=== PATIENT | female | born 1960 | race African-American/Black ===

== ENCOUNTER 2024-02-26 17:09 | Emergency (ER) | payer OTHER, SELFPAY ==
[2024-02-26 17:15] VITALS: BP 195/119; PULSE 109; RESP 32; TEMP 37.2; O2SAT 97; BMI 25.0
--- NOTE | 2024-02-26 17:20 | CRLHL7_ITS ---
For Patients: As a result of the Cures Act, medical imaging exams and procedure reports are released immediately into your electronic medical record. You may view this report before your referring provider. If you have questions, please contact your health care provider. INDICATION: Shortness of breath. TECHNIQUE: Chest 2 views. COMPARISON: None available. FINDINGS: No pneumothorax or pleural effusion. Postoperative changes with suture line in the right upper lobe. Multiple surgical clips in the lower right paratracheal region. Lungs are otherwise clear. Cardiac and mediastinal contours are within normal limits. Upper abdomen and osseous structures as imaged show no acute abnormality. IMPRESSION: No evidence of acute cardiopulmonary disease. Dictated by Jun Davidson MD @ 02/26/2024 6:39:27 PM (Electronically Signed)
[2024-02-26] MEDS: predniSONE 20 MG TABLET 60 MG PO (17:37)
[2024-02-26] MEDS: IPRAT-ALBUT 0.5-2.5 MG/3 ML NEB 1 NEB IH (17:41)
[2024-02-26] MEDS: ALPRAZolam 0.25 MG TABLET PO (17:42)
[2024-02-26 17:48] VITALS: PULSE 88; O2SAT 100
--- OUTSIDE RECORDS SUMMARY | 2024-02-26 17:54 | XMS_ITS | Encounter Summary ---
Author Organization [employer] Address [address], [place] [address] Care Team Providers Care Busser Name Role Phone Mariluamor Gopal Gimenez DO Primary Care Provider [phone]- [phone] Reason for Visit * Reason Comments Insurance Concerns Financial Encounter Details Date Type Department Care Team (Late st Contact Info) Description 01/19/2024 Telephone [facility] [address] [facility]. [place], [place] [id number] Mervat Salmeron, FUR BLOWING MACHINE ATTENDANT, MECHANICAL DESIGNER [address] [place], [place] [id number] Insurance Concerns; Financial Social History Tobacco Use Types Packs/Day Years Used Date Smoking Tobacco: Former Cigarettes Q uit: 10/04/2021 Smokeless Tobacco: Never Alcohol Use Standard Drinks/Week Comments Not Currently 0 (1 standard drink = 0.6 oz pur e alcohol) Humiliation, Afraid, Rape, and Kick questionnair e Answer Date Recorded Fear of Current or Ex-Partner Not on file Emotionally Abused Not on file 08/12/2023 Within the last year, have y ou been kicked, hit, slapped, or otherwise physically hurt by your partner or ex-partner? No 08/12/2023 Within the last year, have y ou been raped or forced to have any kind of sexual activity by your partner or ex-partner? No 08/12/2023 Hunger Vital Sign Answer Date Recorded Within the past 12 months, y ou worried that your food would run out before you got the money to buy more. Never true 07/10/20 23 Within the past 12 months, t he food you bought just didn't last and you didn't have money to get more. Never true 07/10/2023 Sex and Gender Information Value Date Recorded Sex Assigned at Not on file Gender Identity Not on file Sexual Orientation Not on file documented as of this encounter Nursing Notes * Mervat Salmeron MSW, LICSW - 01/19/2024 3:38 PM CDT Social Work - Phone Call Contact with: pt Reason for call: follow up Discussion/actions: Pt reported she has insurance now but wonders if it will backdate, stating its through her 's employer. Reviewed financial assistance options with pt, pt agreed to meet with tech writer after appt on Wednesday with Dr. Yoder. YUN Mckeon LICSW documented in this encounter Plan of Treatment Not on file documented as of this encounter Visit Diagnoses Not on filedocumented in this encounter Care Teams Busser Relationship Specialty Start Date End Date Gopal Varghese DO [address] [place] [address] PCP - General Family Practice 05/29/19 documented as of this encounter
--- OUTSIDE RECORDS SUMMARY | 2024-02-26 17:54 | XMS_ITS | Encounter Summary ---
Author Organization [employer] Address [address] [place] [address] Care Team Providers Care Classifier Name Role Phone Gopal Varghese DO Primary Care Provider [phone] [phone] Encounter Details Date Type Department Care Team (Late st Contact Info) Description 07/06/2019 Correspondence None No Primary/Referring, Phy NEW PATIENT HISTORY Social History Tobacco Use Types Packs/Day Years Used Date Smoking Tobacco: Every Day Cigarettes Smokeless Tobacco: Never Alcohol Use Standard Drinks/Week Comments No 0 (1 standard drink = 0.6 oz pur e alcohol) Sex and Gender Information Value Date Recorded Sex Assigned at Not on file Gender Identity Not on file Sexual Orientation Not on file documented as of this encounter Plan of Treatment Not on file documented as of this encounter Visit Diagnoses Not on filedocumented in this encounter Additional Health Concerns Infection Onset Date Last Indicated Resolved Time R/O COVID19 07/09/2023 07/09/2023 07/09/2023 4:52 PM ORACLE IDENTITY MANAGEMENT CONSULTANT documented as of this encounter Care Teams Classifier Relationship Specialty Start Date End Date Gopal Varghese DO [address] [place] [address] PCP - General Family Practice 05/29/19 documented as of this encounter
--- OUTSIDE RECORDS SUMMARY | 2024-02-26 17:54 | XMS_ITS | Encounter Summary ---
Author Organization [employer] Address [address] [place] [address] Care Team Providers Care Agile Coach Name Role Phone Gopal Varghese DO Primary Care Provider [phone] [phone] Encounter Details Date Type Department Care Team (Late st Contact Info) Description 08/01/2019 Consent for Procedure/Treatme nt [facility] INFORMED CONSENT RECORD Social History Tobacco Use Types Packs/Day Years [...] R/O COVID19 07/09/2023 07/09/2023 07/09/2023 4:52 PM IN STORE MARKETER documented as of this encounter Care Teams Agile Coach Relationship Specialty Start Date End Date Gopal Varghese DO [address] [place] [address] PCP - General Family Practice 05/29/19 documented as of this encounter
--- OUTSIDE RECORDS SUMMARY | 2024-02-26 17:54 | XMS_ITS | Encounter Summary ---
Author Organization [employer] Address [address], [place] [address] Care Team Providers Care Residential Pest Control Technician Name Role Phone Gopal Varghese Primary Care Provider +1- [phone] Reason for Visit * Reason Comments Refill atorvastatin (LIPITO R) 40 MG tablet [Pharmacy Med Name: ATORVASTATIN 40MG TABLETS] Encounter Details Date Type Department Care Team (Late st Contact Info) Description 12/21/2023 Refill [facility] [address] [place] [address] Severiano Moreno, ALLERGIST IMMUNOLOGIST, ENGINEER EXHAUSTER [address] [place] [address] Refill (atorvastatin (LIPITOR) 40 MG tablet [Pharmacy Med Name: ATORVASTATIN 40MG TABLETS]) Social History Tobacco Use Types Packs/Day Years [...] as of this encounter Nursing Notes * Doretha Ham, RN - 12/23/2023 6:15 AM CDT Patient had an appointment with Gopla Varghese DO (Physician) Family Practice Encounter Date: 07/16/2023 Refilled per standing order. * Latoya Aguilar X[employer] - 12/21/2023 5:20 AM CDT atorvastatin (LIPITOR) 40 MG tablet [Pharmacy Med Name: ATORVASTATIN 40MG TABLETS] Miscellaneous - 12 Month Visit 1 -> The most recent order on 11/13/2023. -> An office visit is overdue (performed over 13 months ago, required every 12 months). Last qualifying visit: 11/13/2022 (with SEVERIANO MORENO) (A more recent visit (in Internal Medicine with RONI ROGEL) was found) Next scheduled visit: None Last ordered by SEVERIANO MORENO: 11/13/2022 (403 days ago) QTY: 90, Refills: 3, Sig: take 1 tablet (40 mg) by mouth daily. (changed but equivalent) [facility] [employer] Embedded Refills, Reference: [id number], 12/21/2023 5:20:34 AM CDT, [facility] - Primary Care ([id number]) documented in this encounter Plan of Treatment Not on file documented as of this encounter Visit Diagnoses Diagnosis Diabetes mellitus, type II (HRC) Type II or unspecified type diabetes mellitus without mention of complication, not stated as uncontrolled Hypertension, unspecified type (HRC) documented in this encounter Care Teams Residential Pest Control Technician Relationship Specialty Start Date End Date Gopal Varghese DO [address] [place] [address] PCP - General Family Practice 05/29/19 documented as of this encounter
--- OUTSIDE RECORDS SUMMARY | 2024-02-26 17:54 | XMS_ITS | Encounter Summary ---
Author Organization [employer] Address [address], [place] [address] Care Team Providers Care Insurance Licensing Supervisor Name Role Phone Gopal Varghese Primary Care Provider [phone]- [phone] Reason for Visit * Reason Comments Refill gabapentin (NEURONTI N) 300 MG capsule [Pharmacy Med Name: GABAPENTIN 300MG CAPSULES] Encounter Details Date Type Department Care Team (Late st Contact Info) Description 11/23/2023 Refill [facility] [address] [facility] [place] [address] Severiano Moreno, PUBLICATION EDITOR, BEHAVIORAL HEALTH TECH [address] [place] [address] Refill (gabapentin (NEURONTIN) 300 MG capsule [Pharmacy Med Name: GABAPENTIN 300MG CAPSULES]) Social History Tobacco Use Types Packs/Day Years [...] as of this encounter Nursing Notes * Gopal Varghese DO - 11/24/2023 7:55 AM CDT Medication refilled Gopal Varghese DO * Latoya Aguilar [employer] - 11/23/2023 5:19 PM CDT gabapentin (NEURONTIN) 300 MG capsule [Pharmacy Med Name: GABAPENTIN 300MG CAPSULES] None Exists -> Medication cannot be delegated. Last qualifying visit: 11/13/2022 (with SEVERIANO MORENO) (A more recent visit (in Internal Medicine with RONI ROGEL) was found) Next scheduled visit: None Last ordered by SEVERIANO MORENO: 11/13/2022 (375 days ago) QTY: 270, Refills: 3, Sig: take 1 capsule (300 mg) by mouth three times a day. (changed but equivalent) [facility] Embedded Refills, Reference: [id number], 11/23/2023 5:19:40 PM CDT, Pool: Refill Centralized Services - Primary Care ([id number]) documented in this encounter Plan of Treatment Not on file documented as of this encounter Visit Diagnoses Diagnosis Menopausal syndrome (hot flashes) Symptomatic menopausal or female climacteric states documented in this encounter Care Teams Insurance Licensing Supervisor Relationship Specialty Start Date End Date Gopal Varghese DO [address] [place] [address] PCP - General Family Practice 05/29/19 documented as of this encounter
--- OUTSIDE RECORDS SUMMARY | 2024-02-26 17:54 | XMS_ITS | Encounter Summary ---
Author Organization [employer] Address [address], [place] [address] Care Team Providers Care Implementation Architect Name Role Phone Gopal Varghese Primary Care Provider [phone]- [phone] Reason for Visit * Reason Comments Refill metFORMIN XR (GLUCOP URSULA XR) 500 MG 24 hour release tablet [Pharmacy Med Name: METFORMIN ER 500MG 24HR TABS] Encounter Details Date Type Department Care Team (Late st Contact Info) Description 12/21/2023 Refill [facility] [address] [facility]. [place], [place] [phone] Severiano Moreno, WATER PLANT MAINTENANCE MECHANIC, BONE COOKING OPERATOR [address] [place] [address] Refill (metFORMIN XR (GLUCOPHAGE XR) 500 MG 24 hour release tablet [Pharmacy Med Name: METFORMIN ER 500MG 24HR TABS]) Social History Tobacco Use Types Packs/Day Years [...] Nursing Notes * Gopal Varghese DO - 12/24/2023 7:36 AM CDT Medication refilled Gopal Varghese DO * Rosanna Carmona RN - 12/23/2023 7:53 AM CDT Further Assistance Needed on Refill from Clinician RN reviewed. Signed order needed. Patient no longer under previous prescribers care [facility] 07/16/23 Gopal Varghese DO Review pended order for accuracy and sign if appropriate Requested Prescriptions Pending Prescriptions Disp Refills lisinopril (ZESTRIL) 20 MG tablet [Pharmacy Med Name: LISINOPRIL 20MG TABLETS] 90 Tablet 2 Sig: TAKE 1 TABLET(20 MG) BY MOUTH DAILY * Latoya Aguilar [employer] - 12/21/2023 9:16 AM CDT lisinopril (ZESTRIL) 20 MG tablet [Pharmacy Med Name: LISINOPRIL 20MG TABLETS] Hypertension -> The most recent order on 11/13/2023. -> An office visit is overdue (performed over 13 months ago, required every 12 months). Last qualifying visit: 11/13/2022 (with SEVERIANO MORENO) (A more recent visit (in Internal Medicine with RONI ROGEL) was found) Next scheduled visit: None Last ordered by SEVERIANO MORENO: 11/13/2022 (403 days ago) QTY: 90, Refills: 2, Sig: take 1 tablet (20 mg) by mouth daily. (changed but equivalent) Cr: 0.64 mg/dL on 07/11/2023 K: 3.9 mEq/L on 07/11/2023 [facility] Embedded Refills, Reference: [id number], 12/21/2023 9:15:58 AM CDT, Pool: HP Refill Centralized Services - Primary Care ([id number]) documented in this encounter Plan of Treatment Not on file documented as of this encounter Visit Diagnoses Diagnosis Essential hypertension (HRC)- Primary Unspecified essential hypertension documented in this encounter Care Teams Implementation Architect Relationship Specialty Start Date End Date Gopal Varghese DO [address] [facility] [place] [address] PCP - General Family Practice 05/29/19 documented as of this encounter
--- OUTSIDE RECORDS SUMMARY | 2024-02-26 17:54 | XMS_ITS | Encounter Summary ---
Author Organization [employer] Address [address], [place] [address] Care Team Providers Care Community Sports Coordinator Name Role Phone Gopal Varghese DO Primary Care Provider [phone]- [phone] Reason for Visit * Reason Comments Forms Encounter Details Date Type Department Care Team ([facility] st Contact Info) Description 01/18/2024 Telephone [facility] [address] [facility]. [place], [place] [phone] Gopal Varghese DO [address] [place], [place] [phone] Forms Social History Tobacco Use Types Packs/Day Years [...] as of this encounter Nursing Notes * Kelly Pretty - 01/18/2024 12:16 PM CDT Faxed this morning and pt will berry picker Wednesday. Brought down to check in * Sal Mejia - 01/18/2024 11:30 AM CDT Forms & Letters - In Process Type of form: Letter/Other Form Patient is requesting the status of form(s) dropped off to clinic on last wk. Pt wants to know if it's ready to be picked up. Xcel form. Preferred communication method: Phone Call. Is it okay to leave a detailed message on your voicemail? Yes documented in this encounter Plan of Treatment Not on file documented as of this encounter Visit Diagnoses Not on filedocumented in this encounter Care Teams Community Sports Coordinator Relationship Specialty Start Date End Date Gopal Varghese DO [address] [place] [address] PCP - General Family Practice 05/29/19 documented as of this encounter
--- OUTSIDE RECORDS SUMMARY | 2024-02-26 17:54 | XMS_ITS | Encounter Summary ---
Author Organization [employer] Address [address] [address] Care Team Providers Care Occupational Health Nurse Name Role Phone Gopal Varghese DO Primary Care Provider +1- [phone] Reason for Referral * Consult/Transfer Care (Routine) - Incomplete Specialty Diagnoses / Procedures Referred By Yuridia lr Referred To Contact Diagnoses Acute exacerbation of chronic obstructive pulmonary disease (COPD) (HRC) Gopal Varghese DO [address] [place] [address] Referral ID Status Reason Start Date Expiration Date V isits Requested Visits Authorized [id number] Incomplete 01/11/2024 04/11/2025 1 1 Scheduling Instructions A care team leader/research psychologist will contact you within two weeks to follow up on your visit today. If you would like to speak with someone sooner, please contact your primary care clinic. Question Answer Appointment Urgency? Non-Urgent Reason for referral? Difficulty Managing Conditions, Treatments, or Medications, Medication Cost Barriers Reason for Visit * Reason Comments BREATHING PROBLEM Does not have insura nce at this time. ANXIETY 6 not. Patient is mo ving to a new place DEPRESSION 4 not Encounter Details Date Type Department Care Team ([facility] Contact Info) Description 01/11/2024 1:40 PM CDT Phone Visit [facility] [address] [place] [address] Gopal Varghese, [address] [place] [address] Acute exacerbation of chronic obstructive pulmonary disease (COPD) (HRC); Menopausal syndrome (hot flashes) Social History Tobacco Use Types Packs/Day Years [...] on file documented as of this encounter Last Filed Vital Signs Vital Sign Reading Time Taken Comments Blood Pressure - - Pulse - - Temperature - - Respiratory Rate - - Oxygen Saturation - - Inhaled Oxygen Concentration - - Weight 72.6 kg (160 lb) 01/11/2024 12:47 PM CDT Height - - Body Mass Index 27.46 08/19/2023 9:17 AM SAMPLE COORDINATOR documented in this encounter Patient Instructions * Patient Instructions* Gopal Varghese DO - 01/11/2024 1:40 PM CDT COPD exacerbation - Begin prednisone 40 mg (4 tablets) by mouth daily for 2 days, then 30 mg (3 tablets) daily for 2 days, then 20 mg (2 tablets) daily for 2 days, then 10 mg (1 tablet) daily for 2 days - begin azithromycin - referral placed to care coordination - if symptoms do not improve, worsen, or if new concerns arise please I would recommend in-person evaluation. Oncology contact information [phone] Pulmonology contact [phone] If any concerns arise please contact clinic at [phone] documented in this encounter Progress Notes * Gopal Varghese DO - 01/11/2024 1:40 PM CDT Subjective: Today's visit with Zahira was conducted as a scheduled telephone visit Zahira schedule today's appointment to discuss concerns of increased symptoms of shortness of breath. She was concerned about the possible development of a COPD exacerbation. Over the last 3 weeks she has had increased wheezing as well as slightly increased sputum production. No recorded fevers. No night sweats. Pulse oxygenation levels have not drop below 90%. She has had to take more breaks when walking at the mall. She does not feel like she needs to be seen in our evaluated in the ER setting at this time. Most recently she was hospitalized at [facility] from 10/13/2023 through 10/19/2023 for COPD exacerbation and tested positive for RSV at the time. She was intubated during this admission. She does not have insurance at this time but is interested in being seen in follow-up with pulmonology as well as Oncology. Controller inhaler medications have been challenging for her to purchased due to cost. She also would like a letter completed as she had gotten a letter from her [employer]chron[employer] service about possibly turning off the power. Objective: There were no vitals taken for this visit. General: Speaking in complete sentences. Assessment/Plan: Acute exacerbation of chronic obstructive pulmonary disease (COPD) (HRC): As she was noticed increased sputum production and wheezing will treat as a COPD exacerbation with prednisone as well as azithromycin. Reviewed potential side effects of these medications. Did recommend that she monitor bloodglucose levels closely. Did review concerning signs and symptoms when to contact clinic or seek in-person care. - ALBUterol sulfate HFA 108 (90 Base) MCG/ACT inhaler; Inhale 2 Puffs by mouth every 4 hours as needed for Wheezing. Maximum of 12 puffs in 24 hours. Indications: Chronic Obstructive Lung Disease - predniSONE (DELTASONE) 10 MG tablet; Take 40 mg (4 tablets) by mouth daily for 2 days, then 30 mg(3 tablets) daily for 2 days, then 20 mg (2 tablets) daily for 2 days, then 10 mg (1 tablet) daily for 2 days Indications: ACUTE EXACERBATION OF COPD (INACTIVE) - Coordination of Care (Clinic RN)-Adult/Peds - azithromycin (ZITHROMAX) 250 MG tablet; Take 2 Tablets (500 mg) by mouth daily for 1 day, THEN 1 Tablet (250 mg) daily for 4 days. Menopausal syndrome (hot flashes): Symptoms are currently managed with gabapentin. Informed her that I would sign off on the paperwork she was sent in. Gopal Varghese DO documented in this encounter Plan of Treatment Not on file documented as of this encounter Visit Diagnoses Diagnosis Acute exacerbation of chronic obstructive pulmonary disease (COPD) (HRC) Obstructive chronic bronchitis with exacerbation Menopausal syndrome (hot flashes) Symptomatic menopausal or female climacteric states documented in this encounter Care Teams Occupational Health Nurse Relationship Specialty Start Date End Date Gopal Varghese DO [address] [place] [address] PCP - General Family Practice 05/29/19 documented as of this encounter
--- OUTSIDE RECORDS SUMMARY | 2024-02-26 17:54 | XMS_ITS | Clinical Summary ---
Author Organization [facility] Address [place], [place] [address] Care Team Providers Care Shank Tapper Name Role Phone MariluGopal chinchilla Primary Care Provide r Ainsley Pereyra MD Unavailable Maritza Sykes RN, BSN, OCN Unavailable [phone] Rico Ortega MD Unavailable + [phone] Allergies Active Allergy Reactions Criticality Noted Date Comments Bismuth Subsalicylate Anaphylaxis High 01/01/2020 Unclear if it was due to this or ciprofloxacin Ciprofloxacin Anaphylaxis High 01/01/2020 Unclear if it was due to this or BISMUTH SUBSALICYLATE Naproxen GI Upset 06/11/2016 Medications Medication Sig Dispensed Refills Start Date End Date Status sertraline (ZOLOFT) 100 mg tabletIndications:a nxiety with depression Take 100 mg by mouth once daily. Active NebulizerIndication s:Bronchospasm Nebulizer, disposable neb kit x 4, reuseable neb kit x 1, mask x 1, filters x 1. Frequency of use: daily; Medication: duoneb Length of need: 1 months 1 Each 04/24/2021 Active atorvastatin (LIPITOR) 40 mg tabletIndications:h ypercholesterolemia Take 40 mg by mouth once daily. 08/10/2021 Active gabapentin (NEURONTIN) 300 mg capsuleIndications: neuropathic pain Take 300 mg by mouth three times daily. 07/25/2021 Active NebulizerIndication s:COPD exacerbation (HC) Nebulizer, disposable neb kit x 4, reuseable neb kit x 1, mask x 1, filters x 1. Frequency of use: daily; Medication: DuoNeb. Length of need: 33 months 1 Each 10/26/2021 Active oxygen-air delivery systems (HOME OXYGEN)Indications: COPD exacerbation (HC) Oxygen for home use. Liters per minute: 2 per nasal cannula. Frequency of use: Continuous with activity;. Length of need: 33 Months. 1 Each 10/26/2021 Active aspirin (ECOTRIN) 81 mg enteric coated tablet Take 81 mg by mouth once daily. Active sennosides-docusate (SENOKOT S) (8.6-50 mg) tabletIndications:D rug-induced constipation Take 1-3 Tablets by mouth 2 times daily if needed for Constipation. 30 Tablet 12/04/2021 Active lisinopriL (PRINIVIL; ZESTRIL) 20 mg tabletIndications:h ypertension Take 1 Tablet (20 mg) by mouth once daily. Hold for systolic blood pressure <110 0 12/04/2021 Active amLODIPine (NORVASC) 10 mg tabletIndications:h ypertension Take 1 Tablet (10 mg) by mouth once daily. 30 Tablet 12/04/2021 Active tiZANidine (ZANAFLEX) 2 mg tabletIndications:L eft hip pain Take 1 Tablet (2 mg) by mouth every 8 hours if needed for Muscle Spasm for up to 12 doses. 12 Tablet 04/17/2022 Active acetaminophen (TYLENOL EXTRA STRGTH) 500 mg tablet Take 1,000 mg by mouth every 6 hours if needed for Pain. Max acetaminophen dose: 4000mg in 24 hrs. Active metFORMIN (GLUCOPHAGE XR) 500 mg Extended-Release tabletIndications:t ype 2 diabetes mellitus Take 2,000 mg by mouth once daily. Active albuterol (PROVENTIL) 0.083 % neb solutionIndications :COPD exacerbation (HC) Inhale 3 mL (2.5 mg) via a nebulizer three times daily. 300 mL 05/12/2023 Active albuterol-ipratropi um (DUONEB) (2.5-0.5 mg) in 3 mL NEBULIZATION solutionIndications :COPD exacerbation (HC) Inhale 3 mL via a nebulizer 4 times daily if needed for Shortness of Breath 2nd choice. 360 mL 06/27/2023 Active nebulizer and compressor (DeVilbiss PulmoNeb LT Comp-Neb)Indication s:COPD with acute exacerbation (HC) For home use. Length of need: 999 days 1 Each 06/27/2023 Active fluticasone propion-salmeteroL (Advair Diskus) 100-50 mcg/dose diskus inhaler Inhale 1 Puff by mouth every 12 hours. Active albuterol HFA (PRO-AIR; VENTOLIN; PROVENTIL) 90 mcg/actuation inhalerIndications: COPD exacerbation (HC) Inhale 2 Puffs by mouth every 4 hours if needed for Shortness Of Breath (shortness of breath). 18 g 10/19/2023 Active predniSONE (DELTASONE) 20 mg tabletIndications:C OPD with acute exacerbation (HC) Take 1 Tablet (20 mg) by mouth once daily. 5 Tablet 10/19/2023 Active Active Problems Problem Noted Date Diagnosed Date WILLIAM (acute kidney injury) 10/17/2023 RSV (respiratory syncytial virus infection) 09/2023 Acute hypoxemic respiratory failure 10/13/2023 Acute on chronic respiratory failure with hypoxi a 01/29/2023 Dilated bile duct 09/11/2022 Overview: 2022 - noted on CT imaging MRCP recommended and order placed 09/2022 - MRCP with stable findings likely reservoir effect from cholecystectomy but could consider ERCP Microscopic hematuria 06/02/2022 Overview: Seen by Urology in 2019 - longstanding history Anxiety 06/01/2022 Stage I adenocarcinoma of lung, right 04/27/2022 ACP (advance care planning) 12/17/2021 Overview: Patient has identified Health Care Agent(s): Yes Add Health Care Agents: Patient has Advance Care Plan Documents (Health Care Directive, POLST): no Patient has identified Specific Treatment Preferences: Yes How have preferences been verified: verbal Specific Treatment Preferences: a.) Code Status: CPR/Attempt Resuscitation Closed fracture of right chalo t with routine healing: Right 5th digit crush injury with intra-articular fracture of the proximal phalanx 11/06/2021 Chest pain 11/06/2021 COPD exacerbation 08/31/2021 Chronic obstructive pulmonary disease 06/17/2021 Diabetes mellitus, type II 05/27/2021 Lung nodule 04/21/2021 Steroid-induced hyperglycemia 04/20/2021 Acute bronchitis with bronchospasm 04/16/2021 Sleep disorder 10/14/[address] scan, sigmoid colon 12/29/2019 Essential hypertension 12/29/2019 Pancreas cyst 10/04/2019 Overview: On ct ivp 2019 rec mri c contrast for fu in 2 ys 2021. 4x 7 mm pos ipmn Allergic rhinitis 10/03/2018 Restless legs syndrome 11/30/2016 Atherosclerosis of aorta 11/30/2016 Overview: On CT Lung nodule < 6cm on CT 11/30/2016 Diverticulosis of large intestine without hemorr slava 11/30/2016 Status post left total knee arthroplasty done 05/2811/19/2016 Asthma 11/19/2016 Depression with anxiety 03/23/2014 Hyperlipidemia 03/06/2014 Primary osteoarthritis of left knee 03/01/2014 Abdominal pain 10/29/2013 Migraine 03/07/2013 Former smoker 03/06/2013 Overview: 30 pack years 03/05/16 H/O: hysterectomy 07/28/2012 Irritable bowel syndrome 07/28/2012 GERD (gastroesophageal reflux disease) 1 Non-cardiac chest pain Resolved Problems Problem Noted Date Diagnosed Date Resolved Date Uncontrolled pain 12/17/2021 05/11/2023 Fall 12/17/2021 05/11/2023 Pulmonary nodule 10/25/2021 12/02/2021 Low back pain 04/20/2021 12/02/2021 Hypertensive urgency 10/13/2020 022 Hematuria 11/30/2016 12/02/2021 Left lower quadrant pain 11/30/2016 Atherosclerosis 11/30/2016 11/30/2016 Overview: On CT Left inguinal pain 11/29/2016 7 Nausea 11/29/2016 11/30/2016 Osteoarthritis of left knee 11/15/2015 11/30/2016 Helicobacter pylori (H. pylori) 10/16/2014 09/02/2015 Overview: 09/07/2014- treated osteoarthritis of right knee S/P total knee replacement 03/06/2014 09/02/2015 Dyspnea 03/07/2013 03/01/2014 Cough 03/06/2013 03/01/2014 Hypertension 03/25/2011 12/02/2021 H. pylori infection 03/25/2011 03/01/20 14 Infectious colitis, enteriti s, and gastroenteritis 03/23/2008 03/07/2013 Immunizations Name Administration Dates Next Due Influenza Virus, Unspecified 06/11/2016,04/08/20 09 Influenza, IIV3 (Age 6-35 mos) 03/25/2011 Influenza, IIV3 (Age >=3 years) 03/15/20 13,04/05/2012,03/25/2011,2007,05/26/2007 Influenza, IIV4 04/26/2022,,03/20/2019,2016,06/11/2016,07/20/2014 Pneumococcal Poly,23-Valent (Pneumovax) 03/15/2013 Td (Age >=7 Years) 07/12/2005,09/17/2004 Tdap 04/05/2012 Family History Medical History Relation Name Comments Diabetes Brother Good Health Father Heart Disease Mother Hyperlipidemia Mother Hypertension Mother Other Mother COPD Diabetes Sister 1 Diabetes Sister 2 Relation Name Status Comments Brother Father Mother Sister 1 Sister 2 Social History Tobacco Use Types Packs/Day Years Used Date Smoking Tobacco: Former Cigarettes 0.5 30 0 10/26/1991 - 10/25/2021 Smokeless Tobacco: Never Tobacco Cessation:Counseling Given: Yes Comments:taking chantix Alcohol Use Standard Drinks/Week Comments Not Currently 0 (1 standard drink = 0.6 oz pure alcohol) quit in 2006 prior hx of drinking PHQ-2 Answer Date Recorded PHQ-2 Score 0 09/10/2018 Social Connections Answer Date Recorded Frequency of Communication with Friends and Fami ly 0 10/14/2023 Financial Resource Strain Answer Date R ecorded Difficulty of Paying Living Expenses 3 10/14/2023 Difficulty of Paying Living Expenses Not on file 10/14/2023 Food Insecurity Answer Date Recorded Worried About Running Out of Food in the Last Ye ar 1 10/14/2023 Transportation Needs Answer Date Record ed Lack of Transportation (Medical) 1 10/14/2023 Housing Stability Answer Date Recorded Unable to Pay for Housing in the Last Year 1 10/14/2023 Sex and Gender Information Value Date Recorded Sex Assigned at Not on file Gender Identity Not on file Sexual Orientation Not on file Obstetrics History Para Term AB IAB SAB Ectopic Multiple Livin g Live Births 4 1 1 3 Date Outcome GA Total Labor Labor/2nd/3rd Weight Sex Type Anes PTL Diamond A1 A5 Name Clin SAB Last Filed Vital Signs Vital Sign Reading Time Taken Comments Blood Pressure 125/77 10/19/2023 8:47 AM CDT Pulse 81 10/19/2023 8:49 AM CDT Temperature 36.8 ??C (98.2 ??F) 10/19/2023 8:00 AM CD T Respiratory Rate 16 10/19/2023 1:13 PM CDT Oxygen Saturation 92% 10/19/2023 1:13 PM CDT Inhaled Oxygen Concentration - - Weight 67.2 kg (148 lb 2.4 oz) 10/19/2023 6:00 A M CDT Height 165.1 cm (5' 5) 10/13/2023 3:28 PM CDT Body Mass Index 24.65 10/13/2023 3:28 PM CDT Plan of Treatment Health Maintenance Due Date Last Done Comments Hepatitis C screening for ag e 18-79 1977 Pap test for age 21-65 1980 Mammogram for age 45-75 2004 Zoster (shingles) series for age 50+ (1 of 2) 2009 Pneumococcal series for age 6-64 (2 of 2 - PCV) 03/15/2014 03/15/2013 Lipids for age 45-75 06/17/2017 06/17/2012 Depression screening for age 12+ 09/22/2018 09/22/2017, 09/21/2017, 05/18/2017, Additional history exists Tetanus booster 04/05/2022 04/05/2012, 07/2005, 09/17/2004, Additional history exists Colonoscopy through age 75 05/27/2022 05/27/2017 BMI (ht and wt on same day) for age 18+ 11/12/2022 11/12/2021, 05/04/2019, 09/21/2017, Additional history exists COVID-19 vaccine series ( season) 2023 12/06/2020, 11/01/2020 Influenza for age 50-64 03/12/2024 04/26/20, 04/21/2021, 03/20/2019, Additional history exists Low Dose CT (for lung CA) ag e 50-80 05/11/2024 05/11/2023, 03/10/2023, 03/17/2022, Additional history exists Tdap Completed 04/05/2012 HIV for age 15-65 Completed 10/29/2021 Goals Goal Patient Goal Type Associated Problems Recent Progress Patient-Stated? Author BLOOD PRESSURE - Maintains BP less than 140/90 Blood Pressure No Elie Díaz MD Medical Devices Implanted Type Area Sales Floor Associate Device Identifier Shelf Expiration Date Model / Serial / Lot Cmnt Bone 40g Simplex P Non Atb Mv - [id number] Implanted:Qty: 1 on 03/06/2014 by Jassi Raymundo MD at [facility] Right: Knee [employer] 06/10/2016 6191-1-01 0# / / [id number] Cmnt Bone 40g Simplex P Non Atb Mv - [id number] Implanted:Qty: 1 on 03/06/2014 by Jassi Raymundo MD at [facility] Right: Knee [employer] 07/11/2016 6191-1-01 0# / / [id number] Baseplate Tib Sz4 Triathlon Cruc Ret Pe - [id number] Implanted:Qty: 1 on 03/06/2014 by Jassi Raymundo MD at [facility] Right: Knee [employer] 10/09/2018 5520-B-40 0# / / [id number] Fem Rt Sz3 Triathlon Cruc Ret Co Cr - [id number] Implanted:Qty: 1 on 03/06/2014 by Jassi Raymundo MD at [facility] Right: Knee [employer] 01/08/2019 5510-F-30 2# / / [id number] Insert Knee Sz4 9mm Triathloncruc Ret X3 - [id number] Implanted:Qty: 1 on 03/06/2014 by Jassi Raymundo MD at [facility] Right: Knee [employer] 08/11/2018 5530-G-40 9# / / [id number] Patella 29x9mm Triathlon Asymmetric X3 - [id number] Implanted:Qty: 1 on 03/06/2014 by Jassi Raymundo MD at [facility] Right: Knee [employer] 12/09/2018 5551-G-29 9# / / [id number] Fem Lt Sz3 Triathlon Cruc Ret Co Cr - [id number] Implanted:Qty: 1 on 11/19/2016 by Orion Cheng MD at [facility] Left: Knee [employer] 08/12/2021 5510-F-30 1# / / [id number] Baseplate Tib Sz4 Triathlon Pe - [id number] Implanted:Qty: 1 on 11/19/2016 by Orion Cheng MD at [facility] Left: Knee [employer] 11/08/2021 5521-B-40 0# / / [id number] Patella 29x9mm Triathlon Asymmetric X3 - [id number] Implanted:Qty: 1 on 11/19/2016 by Orion Cheng MD at [facility] Left: Knee [employer] 06/16/2021 5551-G-29 9# / / [id number] Insert Knee Sz4 11mm Triathloncondyle Stbz X3 - [id number] Implanted:Qty: 1 on 11/19/2016 by Orion Cheng MD at [facility] Left: Knee [employer] 08/05/2021 5531-G-41 1# / / [id number] Cmnt Bone 40g Simplex P Non Atb Mv - [id number] Implanted:Qty: 1 on 11/19/2016 by Orion Cheng MD at [facility] Left: Knee [employer] 05/11/2019 6191-1-01 0# / / [id number] Cmnt Bone 40g Simplex P Non Atb Mv - [id number] Implanted:Qty: 1 on 11/19/2016 by Orion Cheng MD at [facility] Left: Knee [employer] 05/11/2019 6191-1-01 0# / / [id number] Cmnt Bone 20g Simplex P Non Atb Mv - [id number] Implanted:Qty: 1 on 11/19/2016 by Orion Cheng MD at [facility] Left: Knee [employer] 11/08/2018 6188-1-01 0# / / [id number] Procedures Procedure Name Priority Date/Time Associated Diagnosis Comments CT CHEST WO STAT 05/11/2023 12:35 PM CDT ANTI HIV 1/2 NEGIN 10/29/2021 8:39 PM CDT COLONOSCOPY SCREENING Routine 05/27/2017 Screening for colon cancer LIPID PANEL Routine 06/17/2012 9:00 AM [facility] Medication management from Last 3 Months or Most Recently Relevant to Health Maintenance Results * CT CHEST WO (05/11/2023 12:35 PM CDT) Anatomical Region Laterality Modality CHEST, THORAX, HEART Computed To mography 05/11/2023 12:3 5 PM CDT Impressions 05/11/2023 12:49 PM CDT 1. No substantial change since 03/10/2023. 2. Irregular opacity in the peripheral right middle lobe is consistent with an area of chronic scarring and/or rounded atelectasis. 3. No acute findings in the chest including no new acute focal consolidation. No evidence of interstitial edema. No pleural effusion. Narrative 05/11/2023 12:49 PM CDT For Patients: As a result of the Cures Act, medical imaging exams and procedure reports are released immediately into your electronic medical record. You may view this report before your referring provider. If you have questions, please contact your health care provider. EXAM: CT CHEST WO LOCATION: [facility] DATE: 05/11/2023 INDICATION: Respiratory illness. Shortness of breath. COMPARISON: CT chest 03/10/2023, 12/17/2021, 12/02/2021, CXR 05/11/2023 reviewed. TECHNIQUE: CT chest without IV contrast. Multiplanar reformats were obtained. Dose reduction techniques were used. CONTRAST: None. FINDINGS: LUNGS AND PLEURA: A small irregular bandlike subpleural consolidative opacity in the inferolateral right middle lobe is unchanged from 03/10/2023. This has been present in various morphologies on more remote studies including back to CT 12/02/2021. Current morphology suggests an area of chronic scarring and/or rounded atelectasis. No new focal consolidation or focal ground glass opacity. Postoperative changes right upper lobe wedge resection. Few tiny benign triangular intrapulmonary lymph nodes left upper lobe, unchanged. No pleural effusion or pneumothorax. No interstitial pulmonary edema. MEDIASTINUM/AXILLAE: No adenopathy. No pericardial effusion. CORONARY ARTERY CALCIFICATION: Moderate. UPPER ABDOMEN: Cholecystectomy. MUSCULOSKELETAL: Moderate scattered hypertrophic degenerative changes in the spine. Procedure Note Aurelio Jaime MD - 05/11/2023 For Patients: As a result of the Century Cures Act, medical imagingexams and procedure reports are released immediately into your electronicmedical record. You may view this report before your referring provider.If you have questions, please contact your health care provider. EXAM: CT CHEST WO LOCATION: [facility] DATE: 05/11/2023 INDICATION: Respiratory illness. Shortness of breath. COMPARISON: CT chest 03/10/2023, 12/17/2021, 12/02/2021, CXR 05/11/2023reviewed. TECHNIQUE: CT chest without IV contrast. Multiplanar reformats wereobtained. Dose reduction techniques were used. CONTRAST: None. FINDINGS: LUNGS AND PLEURA: A small irregular bandlike subpleural consolidativeopacity in the inferolateral right middle lobe is unchanged from03/10/2023. This has been present in various morphologies on more remotestudies including back to CT 12/02/2021. Current morphology suggests anarea of chronic scarring and/or rounded atelectasis. No new focalconsolidation or focal ground glass opacity. Postoperative changes rightupper lobe wedge resection. Few tiny benign triangular intrapulmonarylymph nodes left upper lobe, unchanged. No pleural effusion orpneumothorax. No interstitial pulmonary edema. MEDIASTINUM/AXILLAE: No adenopathy. No pericardial effusion. CORONARY ARTERY CALCIFICATION: Moderate. UPPER ABDOMEN: Cholecystectomy. MUSCULOSKELETAL: Moderate scattered hypertrophic degenerative changes inthe spine. IMPRESSION: 1. No substantial change since 03/10/2023. 2. Irregular opacity in the peripheral right middle lobe is consistentwith an area of chronic scarring and/or rounded atelectasis. 3. No acute findings in the chest including no new acute focalconsolidation. No evidence of interstitial edema. No pleural effusion. Kriss Garcia DO CT * ANTI HIV 1/2 (10/29/2021 8:39 PM CDT) [facility] HIV-1/HIV-2 ANTIBODY Non-Reacti ve Non-Reacti ve 10/30/2021 9:21 AM CDT [facility] Comment:HIV-1 p24 and HIV-1/ HIV-2 Ab not detected. Blood BLOOD SPECIMEN / Unknown Non-Lab Venipuncture / Unknown 10/29/2021 8:39 PM CDT 10/29/2021 8:44 PM CDT Omar Cosby DO [facility] [address] [place] [address], * COLONOSCOPY SCREENING (05/27/2017) Alma Jaime MD GI PROCEDURE ORD * (ABNORMAL) LIPID PANEL (06/17/2012 9:00 AM [facility]OK[facility]) [facility] CHOLESTEROL,TOTA L 235(H) 100 - 199 mg/dL [facility] TRIGLYCERIDES 121 <150 mg/dL [facility] HDL CHOLESTEROL 33(L) >40 mg/dL [facility] CHOL/HDL RATIO 7.12(H) <4.50 [facility] NON-HDL CHOLESTEROL 202 Undefined mg/dL [facility] LDL CHOLESTEROL 178(H) <131 mg/dL [facility] PATIENT STATUS Fasting [facility] Blood specimen (specimen) BLOOD SPECIMEN / Unknown 06/17/2012 9:00 AM [facility] 06/17/2012 8:59 AM [facility] Alma Jaime MD CHEMISTRY [facility] [place] ZIP [id number] [place] [id number] from Last 3 Months or Most Recently Relevant to Health Maintenance Advance Directives * Full Code (Latest Code Status on File) Date Activated Date Inactivated Comments 10/13/2023 7:00 PM 10/19/2023 5:30 PM Question Answer Comments Code Status Discussion: Reviewed Preferences * Full Code Date Activated Date Inactivated Comments 06/25/2023 5:47 PM 06/27/2023 1:04 PM Question Answer Comments Code Status Discussion: Reviewed Preferences * Full Code Date Activated Date Inactivated Comments 05/11/2023 4:24 PM 05/12/2023 2:58 PM Question Answer Comments Code Status Discussion: Reviewed Preferences * Full Code Date Activated Date Inactivated Comments 01/29/2023 9:21 AM 01/31/2023 12:13 PM Question Answer Comments Code Status Discussion: Unable to Assess Preferences, Provider to review later * Full Code Date Activated Date Inactivated Comments 10/31/2022 2:36 AM 11/01/2022 5:40 PM Question Answer Comments Code Status Discussion: Reviewed Preferences Care Teams Shank Tapper Relationship Specialty Start Date End Date Gopal Varghese DO [address] [place] [address] PCP - General 12/28/19 Ainsley Pereyra MD [address] [place], [place] [phone] Critical Care Medicine 10/30/21 Maritza Sykes RN, BSN, OCN [address] [place], [place] [id number] Nurse Navigator - Oncology Registered Nurse 11/12/21 Rico Ortega MD [address], [place] [id number] Consulting Physician Surgery - Cardiothoracic 11/21/21
--- OUTSIDE RECORDS SUMMARY | 2024-02-26 17:54 | XMS_ITS | Encounter Summary ---
Author Organization [facility] Address [address] [place] [id number] Care Team Providers Care Level Glass Forming Machine Operator Name Role Phone MariluGopal chinchilla Pernell ROSS Primary Care Provider [phone] Reason for Referral * Consult/Transfer Care (Routine) - New Request Specialty Diagnoses / Procedures Referred By Yuridia lr Referred To Contact Diagnoses Acute exacerbation of chronic obstructive pulmonary disease (COPD) ([facility]C) Ginette Yoder MD [address] [place] [address] Referral ID Status Reason Start Date Expiration Date V isits Requested Visits Authorized [id number] New Request 01/21/2024 04/21/2025 1 1 Scheduling Instructions Your clinician has recommended an appointment for with [facility]. You can quickly make your appointment online at [employer]/schedule. You can also call [phone] for help scheduling your appointment. We suggest you call your health insurance company about your coverage and benefits for this appointment. Question Answer Appointment Urgency? Non-Urgent Reason for visit? COPD, worsening. frequent exacerbations recently. Reason for Visit * Reason Comments Hospital Discharge Follow-up Encounter Details Date Type Department Care Team ([facility] Contact Info) Description 01/21/2024 2:30 PM CDT Office Visit [facility] [address] [place] [address] Ginette Yoder MD [address] [place] [address] Acute exacerbation of chronic obstructive pulmonary disease (COPD) ([facility]C) (Primary Dx) Social History Tobacco Use Types Packs/Day Years [...] Sign Reading Time Taken Comments Blood Pressure 116/75 01/21/2024 2:45 PM CDT Pulse 95 01/21/2024 2:45 PM CDT Temperature 36.2 ??C (97.1 ??F) 01/21/2024 2:45 PM CD T Respiratory Rate - - Oxygen Saturation 95% 01/21/2024 2:45 PM CDT Inhaled Oxygen Concentration - - Weight 72.6 kg (160 lb) 01/21/2024 2:45 PM CDT Height 165.1 cm (5' 5) 01/21/2024 2:45 PM CDT Body Mass Index 26.63 01/21/2024 2:45 PM CDT documented in this encounter Progress Notes * Ginette Yoder MD - 01/21/2024 2:30 PM CDT Historical: Chief Complaint Patient presents with Hospital Discharge Follow-up Hospital Visit Follow-Up [facility] did you receive [facility]? [facility] Date of hospitalization? October 12 Date of discharge? October 18 Why were you hospitalized? RSV Have your symptoms improved, worsened or remained the same since you left the hospital? Improved Patient seen via phone visit by PCP on . Was given 5 day course of prednisone which has helped but symptoms worsened after finishing prednisone. Now has wheezing again and she continues to have a frequent cough that is keeping her up at night. She reports she has not been using her steroid inhaler because of insurance issues. She has been getting relief from albuterol inhaler. I have personally reviewed the patient's allergies, medications, past medical history, social history, problem list, and lab results in detail and updated the patient record as necessary. Observed: BP 116/75 (BP Location: Right Arm, BP Cuff Size: Regular) Pulse 95 Temp 97.1 ??F (36.2 ??C) (Tympanic) Ht 5' 5 (1.651 m) Wt 160 lb (72.6 kg) SpO2 95% No BMI 26.63 kg/m?? Physical Exam: General Appearance: alert, well appearing, and in no apparent distress HEENT: Pupils are equal and round, reactive to light and accomodation. No scleral icterus or conjunctivitis. Nose had no congestion or drainage. Posterior oropharynx is clear without erythema or exudates. Tympanic membranes visualized bilaterally, intact, pearly nolen with normal light reflex. External auditory canals clear. Neck: Thyroid not enlarged. No bruits. No jugular venous distention Heart: regular rate and rhythm without murmur, gallop or rub Lungs: Scattered wheezing. Throughout. Prolonged expiration. Assessment/Plan: 1. Acute exacerbation of chronic obstructive pulmonary disease (COPD) (HRC) Patient will be started again on prednisone but will put on a more extended taper. Patient encouraged to start inahled steroid. Benzonatate prescribed for cough relief. Referred to pulmonology for further management of COPD. Please see orders and patient instructions Ginette Yoder MD documented in this encounter Plan of Treatment Scheduled Referrals Name Type Priority Associated Diagnoses Orde r Schedule Lung Health/Pulmonary Consult-Adult Referral Routine Acute exacerbation of chronic obstructive pulmonary disease (COPD) ([facility]) Ordered: 01/21/2024 documented as of this encounter Visit Diagnoses Diagnosis Acute exacerbation of chronic obstructive pulmonary disease (COPD) ([facility])- Primary Obstructive chronic bronchitis with exacerbation documented in this encounter Care Teams Level Glass Forming Machine Operator Relationship Specialty Start Date End Date Gopal Varghese DO [address] [place] [address] PCP - General Family Practice 05/29/19 documented as of this encounter
--- OUTSIDE RECORDS SUMMARY | 2024-02-26 17:54 | XMS_ITS | Encounter Summary ---
Author Organization [facility] Address [address], [place] [address] Care Team Providers Care Pay Station Department Manager Name Role Phone Gopal Varghese DO Primary Care Provider [phone] Reason for Visit * Reason Comments Forms [employer] [place]- [employer] NECESSARY EQUIPMENT AND EMERGENCY CERTIFICATION FORM Encounter Details Date Type Department Care Team (Late st Contact Info) Description 01/10/2024 Telephone [facility] [address] [facility] [place], [place] [id number] Gopal Varghese DO [address] [place], [place] [id number] Forms ([employer]- MEDICAL NECESSARY EQUIPMENT AND EMERGENCY CERTIFICATION FORM) Social History Tobacco Use Types Packs/Day Years [...] as of this encounter Nursing Notes * Sanjuanita Krueger - 01/12/2024 1:30 PM CDT Routing form and clinical notes to to complete. * Yumiko Madrigal - 01/10/2024 2:35 PM CDT Forms & Letters What form/letter are you requesting? CMS - Certificate of Medical Necessity Form What condition is this form for? Lung cancer When were you last seen for this concern? By whom? Halima This form/letter is needed from: Gopal Varghese, DO How will you be submitting this form/letter to us? Drop off at clinic Return to: Patient Return method: screw machine set up operator (daytime phone #) [phone] If other than the patient, who may fern picker this form? na Additional comments (related to the above concern): Preferred communication method: Phone Call. Is it okay to leave a detailed message on your voicemail? Yes documented in this encounter Plan of Treatment Not on file documented as of this encounter Visit Diagnoses Not on filedocumented in this encounter Care Teams Pay Station Department Manager Relationship Specialty Start Date End Date Gopal Varghese DO [address] [place] [address] PCP - General Family Practice 05/29/19 documented as of this encounter
--- OUTSIDE RECORDS SUMMARY | 2024-02-26 17:54 | XMS_ITS | Clinical Summary ---
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 [employer] Allergies Active Allergy Reactions Criticality Noted Date Comments Bismuth Subsalicylate Anaphylaxis High 01/01/2020 Unclear if it was due to this or ciprofloxacin Ciprofloxacin Anaphylaxis High 01/01/2020 Unclear if it was due to this or BISMUTH SUBSALICYLATE Naproxen Gastrointestinal 06/11/2016 Medications Medication Sig Dispensed Refills Start Date End Date Status aspirin 81 MG chewable tablet Chew and swallow 1 Tablet (81 mg) by mouth daily. 72 Tab 3 10/29/2016 Active blood glucose (ACCU-CHEK GUIDE) test stripIndications:Eva betes mellitus type II (HRC) Use to test two times a day. 100 Strip 11 05/29/2021 Active Additional Information Patient not taking.Reported on 01/11/2024 lancets (ACCU-CHEK SOFTCLIX)Indications :Diabetes mellitus type II (HRC) Use 1 Each to test two times a day. 100 Each 11 05/29/2021 Active Additional Information Patient not taking.Reported on 01/11/2024 hydrOXYzine HCl (ATARAX) 25 MG tabletIndications:An xiety ([facility]) Take 1 Tablet (25 mg) by mouth two times daily as needed for Anxiety. 30 Tablet 1 11/13/2022 Active amLODIPine (NORVASC) 10 MG tabletIndications:Hy pertension TAKE 1 TABLET(10 MG) BY MOUTH DAILY 90 Tablet 3 02/12/2023 Active sertraline (ZOLOFT) 100 MG tabletIndications:Ma luis Depressive Disorder Take 1.5 Tablets (150 mg) by mouth daily. Indications: Major Depressive Disorder 135 Tablet 3 07/16/2023 Active budesonide-formotero l (SYMBICORT) 80-4.5 MCG/ACT inhalerIndications:C P{D Inhale 2 Puffs by mouth two times a day. Indications: COPD 10.2 g 11 07/16/2023 Active Additional Information Patient not taking.Reported on 01/11/2024 cyclobenzaprine (FLEXERIL) 10 MG tablet Take 1 Tablet (10 mg) by mouth three times a day as needed for Muscle Spasms. 20 Tablet 08/12/2023 Active lidocaine (ASPERCREAM) 4 % patch Apply 1-3 Patches to skin daily. Leave on for up to 12 hours in a 24 hour period, then remove. 8 Patch 08/12/2023 Active Additional Information Patient not taking.Reported on 08/19/2023 umeclidinium (INCRUSE ELLIPTA) 62.5 MCG/ACT inhalerIndications:S tage 2 moderate COPD by GOLD classification ([facility]) Inhale 1 Puff daily. 1 Each 11 08/19/2023 Active gabapentin (NEURONTIN) 300 MG capsuleIndications:M enopausal syndrome (hot flashes) TAKE 1 CAPSULE(300 MG) BY MOUTH THREE TIMES DAILY 270 Capsule 1 11/24/2023 Active metFORMIN XR (GLUCOPHAGE XR) 500 MG 24 hour release tabletIndications:Ty pe 2 diabetes mellitus without complication, without long-term current use of insulin ([facility]) Take 4 Tablets (2,000 mg) by mouth every evening with a meal. 360 Tablet 3 12/22/2023 Active atorvastatin (LIPITOR) 40 MG tabletIndications:Hy pertension, unspecified type (HRC) TAKE 1 TABLET(40 MG) BY MOUTH DAILY 90 Tablet 1 12/23/2023 Active lisinopril (ZESTRIL) 20 MG tabletIndications:Es sential hypertension (HRC) TAKE 1 TABLET(20 MG) BY MOUTH DAILY 90 Tablet 2 12/24/2023 Active ALBUterol sulfate HFA 108 (90 Base) MCG/ACT inhalerIndications:C hronic Obstructive Pulmonary Disease Inhale 2 Puffs by mouth every 4 hours as needed for Wheezing. Maximum of 12 puffs in 24 hours. Indications: Chronic Obstructive Lung Disease 18 g 11 01/11/2024 Active predniSONE (DELTASONE) 10 MG tabletIndications:Ac ramona Exacerbation of COPD (Inactive) Take 40 mg (4 tablets) by mouth daily for 2 days, then 30 mg (3 tablets) daily for 2 days, then 20 mg (2 tablets) daily for 2 days, then 10 mg (1 tablet) daily for 2 days Indications: ACUTE EXACERBATION OF COPD (INACTIVE) 20 Tablet 01/11/2024 Active albuterol 2.5 mg/3 mL, 0.083%, (PROVENTIL) nebulizer solution 1 Each (2.5 mg) by Nebulization route every 6 hours as needed for Wheezing. 180 mL 3 01/21/2024 Active benzonatate (TESSALON) 100 MG capsule Take 1-2 Capsules (100-200 mg) by mouth three times a day as needed for Cough. 60 Capsule 1 01/21/2024 Active Active Problems Patient Care Coordination No te Formatting of this note migh t be different from the original. [facility] DCM Care Management Zahira Fernandez Was identified for case management services due to her recent hospitalization for a thoracotomy and lymph node dissection. She verbalized she was not interested in engagement so case will be closed as not managed however it can be reopened at any time if the member or provider are interested in case management support or resources. Emerita Yanez RN 12/23/2021, 5:25 PM [phone] This is an FYI only. No action from the clinic is required. Zahira Fernandez was enrolled with Disease and Case Management and the case has been closed because patient stopped responding. If questions or concerns please contact me at [phone] 07/09/2021 6:31 PM Problem Noted Date Diagnosed Date Stage 2 moderate COPD by GOLD classification 02/2024 Acute exacerbation of chroni c obstructive pulmonary disease (COPD) 07/09/2023 Shortness of breath 07/09/2023 Dilated bile duct 09/11/2022 Overview (09/28/2022): 2022 - noted on CT imaging MRCP recommended and order placed 09/2022 - MRCP with stable findings likely reservoir effect from cholecystectomy but could consider ERCP Microscopic hematuria 06/02/2022 Overview (06/02/2022): Seen by Urology in 2019 - longstanding history Anxiety 06/01/2022 Adenocarcinoma, lung 04/15/2022 Overview (09/11/2022): surg 5 2021 lobecatomy 1.8 cm diam invasive adenoca right upper lobe resection 2022 - seen by Oncology - CT scan showing possible inflammatory versus infectious changes in right middle lobe high-resolution CT scan order COPD exacerbation 06/17/2021 Diabetes mellitus, type II 05/27/2021 Low back pain 04/20/2021 Smoker 11/15/2020 Hypertensive urgency 10/13/[address] scan, sigmoid colon 12/29/2019 Pancreas cyst 10/04/2019 Overview (06/01/2022): On ct ivp 2019 rec mri c contrast for fu in 2 ys 2021. 4x 7 mm pos ipmn 10/05/2021 - CT scan with normal-appearing pancreas Adenomatous polyp of colon 08/10/2019 Overview (10/04/2019): Needs repeat colonosc 2019 due to poor prep 2019 Allergic rhinitis 10/03/2018 Atherosclerosis of aorta 11/30/2016 Overview (06/16/2019): On CT Diverticulosis of large intestine without hemorr slava 11/30/2016 Lung nodule 11/30/2016 Overview (12/16/2021): CT chest 12/16/19 - Previously seen left lower lobe pulmonary nodules are stable and likely benign. There are other pulmonary nodules within the superior aspects of both lungs which are not included on the prior CT scan. As such, their chronicity cannot be determined. This includes a mildly spiculated right upper lobe nodule measuring 4 x 8 mm in size adjacent to a cystic cavity. Close attention on follow-up is recommended with repeat CT in 6 months. - Follow-up CT in [address] chest 02/06/2020 - Multiple pulmonary nodules. These are not significantly changed from the prior study. Increase in focal consolidation in the left lower lobe laterally. This may be infectious or inflammatory. - CT scan at 6 months; if unchanged, repeat at 18 months 02/14/2020 - Pulmonology consult 10/2021 - lung nodule concerning for malignancy noted during hospital admission for COPD exacerbation - Pulmonology at [facility] 11/2021 - Lobectomy Dr. Ortega - [facility] ?? Status post total left knee replacement 11/20/19 17 Hyperlipidemia 03/06/2014 Overview (07/03/2019): Cardiovascular Risk Summary: A previous ASCVD condition (heart disease, peripheral vascular disease, or stroke) has been identified. Cardiovascular risk could be reduced with attention to the following, in order of priority Tobacco cessation Statin use or intensification Weight loss Migraine 03/07/2013 Major depressive disorder, recurrent episode Overview (10/15/2021): Problem list name updated by automated process. Provider to review Restless legs syndrome (RLS) 07/28/2012 H/O: hysterectomy 07/28/2012 Irritable bowel syndrome 07/28/2012 Malaise and fatigue 07/28/2012 Overview (10/15/2021): Problem list name updated by automated process. Provider to review Essential hypertension 03/25/2011 GERD (gastroesophageal reflux disease) 1 Resolved Problems Problem Noted Date Diagnosed Date Resolved Date Steroid-induced hyperglycemia 04/20/2021 04/15/2022 Acute bronchitis with bronchospasm 04/16/2021 04/15/2022 Sleep disorder 10/14/2020 04/15/2022 Infiltrate of lower lobe of left lung present on imaging study 02/07/2020 11/15/2020 Hematuria 11/30/2016 11/15/2020 Overview (07/24/2020): eval c cysto and ctivp 2018 no etiology Moderate cigarette smoker (10-19 per day) 10/29/2016 11/15/2020 Depression with anxiety 03/23/2014 10/0 11/2021 Primary osteoarthritis of left knee 03/01/2014 10/04/2019 History of tobacco use 03/06/201311/15 Overview (06/16/2019): Overview: 30 pack years 03/05/16 Abdominal pain 07/28/2012 04/15/2022 Overview (10/15/2021): Problem list name updated by automated process. Provider to review and confirm Abdominal tenderness 07/28/2012 022 Overview (10/15/2021): Problem list name updated by automated process. Provider to review Acute gastritis 07/28/2012 04/15/2022 Overview (10/15/2021): Problem list name updated by automated process. Provider to review Dysuria 07/28/2012 04/15/2022 Excessive thirst 07/28/2012 04/15/2022 Fatigue 07/28/2012 04/15/2022 Generalized muscle ache 07/28/20120 11/2021 Nausea 07/28/2012 04/15/2022 Need for prophylactic hormon e replacement therapy (postmenopausal) 07/28/2012 04/15/2022 Nicotine dependence 07/28/2012 04/15/20 22 Persons encountering health services in other specified circumstances 07/28/2012 04/15/2022 Overview (10/15/2021): Tier 2 DX V65.8 REPLACED WITH [address]348 HEALTH HALFWAY (10/17/2012) Prediabetes 07/28/2012 12/09/2022 Sprain and strain of shoulder and upper arm 07/28/2012 04/15/2022 Overview (10/15/2021): Problem list name updated by automated process. Provider to review UTI (urinary tract infection) 07/28/2012 04/15/2022 Overview (10/15/2021): Problem list name updated by automated process. Provider to review Artificial menopause 04/14/2006 021 Encounters Date Type Department Care Team Description 01/21/2024 2:30 PM CDT Office Visit [facility] [address] [place] [address] Ginette Yoder MD Acute exacerbation of chronic obstructive pulmonary disease (COPD) (HRC) (Primary Dx) 01/19/2024 Telephone [facility] [address] [place] [address] Mervat Salmeron MSW, [facility] Insurance Concerns; Financial 01/18/2024 Telephone [facility] [address] [place] [address] Gopal Varghese DO Forms 01/11/2024 1:40 PM CDT Phone Visit [facility] [address] [place] [address] Gopal Varghese DO Acute exacerbation of chronic obstructive pulmonary disease (COPD) (HRC); Menopausal syndrome (hot flashes) 01/10/2024 Telephone [facility] [address] [place] [address] Gopal Varghese DO Forms ([facility]- MEDICAL NECESSARY EQUIPMENT AND EMERGENCY CERTIFICATION FORM) 12/21/2023 Refill [facility] [address] [place] [address] Dasha Moreno APRN, TALENT ASSISTANT Refill (metFORMIN XR (GLUCOPHAGE XR) 500 MG 24 hour release tablet [Pharmacy Med Name: METFORMIN ER 500MG 24HR TABS]) 12/21/[address] [place] [place] [address] [place] [address] Dasha Moreno APRN, TALENT ASSISTANT Refill (metFORMIN XR (GLUCOPHAGE XR) 500 MG 24 hour release tablet [Pharmacy Med Name: METFORMIN ER 500MG 24HR TABS]) 12/21/2023 Refill [facility] [address] [place] [address] Dasha Moreno, LEAVE SPECIALIST, TALENT ASSISTANT Refill (atorvastatin (LIPITOR) 40 MG tablet [Pharmacy Med Name: ATORVASTATIN 40MG TABLETS]) from Last 3 Months Immunizations Name Administration Dates Next Due Flu Vac (3+ yrs) 03/15/2013, 2,03/25/2011,2008,09/10/2007,05/26/2007 Flu Vac Preserv Free (3+yrs) 03/25/2011 HepB Adult (Heplisav-B, 19+ yrs, 2 dose series) 06/01/2022 Influenza (Flucelvax), Prese rv Free QIV 07/16/2023 Influenza IIV4 (Quadrivalent ) 0.5mL ([id number]) 04/26/2022,04/21/2021,03/20/2019,2016,06/11/2016,07/20/2014 Influenza, Unspecified Formulation 06/11/2016, Moderna Monovalent 12+ 12/06/2020,11/01/2020 PCV20 ([id number]) 06/01/2022 PPSV23 (Pneumovax) 03/15/2013 Td 07/12/2005,09/17/2004 Tdap 06/01/2022,04/05/2012 Zoster RZV (Shingrix) 06/01/2022 Family History Medical History Relation Name Comments Cancer, Breast Negative Family History Cancer, Colon Negative Family History Cancer, Ovary Negative Family History Cancer, Uterine Negative Family History Relation Name Status Comments Father Alzheimers Mother HTN Brother 1 (Age 50's) TB? Brother 2 (Age 50's) Bone CA Brother 3 Alive HTN Brother 4 Alive HTN Daughter Alive Sister 1 Alive DM, HTN Sister 2 Alive HtN Sister 3 Alive HTN Sister 4 Alive Sister 5 Alive Son 1 Alive Son 2 Alive Social History Tobacco Use Types Packs/Day Years [...] on file Sexual Orientation Not on file Last Filed Vital Signs Vital Sign Reading Time Taken Comments Blood Pressure 116/75 01/21/2024 2:45 PM CDT Pulse 95 01/21/2024 2:45 PM CDT Temperature 36.2 ??C (97.1 ??F) 01/21/2024 2:45 PM CD T Respiratory Rate 22 08/12/2023 5:43 PM [employer] Oxygen Saturation 95% 01/21/2024 2:45 PM CDT Inhaled Oxygen Concentration - - Weight 72.6 kg (160 lb) 01/21/2024 2:45 PM CDT Height 165.1 cm (5' 5) 01/21/2024 2:45 PM CDT Body Mass Index 26.63 01/21/2024 2:45 PM CDT Plan of Treatment Health Maintenance Due Date Last Done Comments MTM Covered 1960 Diabetes: Eye Exam 12/06/2021 12/06/2020, 0 12/06/2020, 06/19/2020, Additional history exists HepB (2) 06/29/2022 06/01/2022 Zoster/Shingles (2 of 2) 07/27/2022 06/01/2022 Colonoscopy 11/21/2022 11/21/2020, 07/13, 01/17/2009, Additional history exists COVID-19 Vaccine ( season) 2023 12/06/2020, 11/01/2020 Adult Preventive Visit 06/01/2023 , 06/16/2019, 05/19/2006 Mammogram 08/13/2023 08/13/2022, 07/13, 08/22/2020, Additional history exists Diabetes: HGBA1C 10/15/2023 07/16/2023, , 05/11/2023, Additional history exists Influenza (#1) 2024 07/16/2023, 04/11, 04/21/2021, Additional history exists Diabetes: Creatinine 07/11/2024 07/11/2023, 07/10/2023, 07/09/2023, Additional history exists Diabetes: Foot Exam 07/16/2024 07/16/2023, Diabetes: Urine Microalbumin 07/16/2024 07/16/2023, 06/01/2022 Diabetes: Lipid Panel 06/01/2027 06/01/2022 , 11/21/2021, 06/29/2019 DTaP/Tdap/Td (3 - Tdap) 06/01/2032 06/01/20, 04/05/2012, 07/12/2005, Additional history exists Hep C Screening (Preventive Services) Completed 06/29/2019 HIV Screening (Preventive Services) Completed 10/29/2021, 06/29/2019 Cholesterol Discontinued 06/01/2022, 11/09, 05/14/2021, Additional history exists Pneumococcal Completed 06/01/2022, 03/15/2013 HepA Aged Out No longer eligi ble based on patient's age to complete this topic Hib Aged Out No longer eligi ble based on patient's age to complete this topic IPV (Polio) Aged Out No longer eligi ble based on patient's age to complete this topic MCV4 Aged Out No longer eligi ble based on patient's age to complete this topic Procedures Procedure Name Priority Date/Time Associated Diagnosis Comments ALBUMIN/CREAT RATIO Routine 07/16/2023 9 :29 AM [employer] Type 2 diabetes mellitus without complication, without long-term current use of insulin (HRC) HGB A1C Routine 07/16/2023 9:27 AM [employer] Type 2 diabetes mellitus without complication, without long-term current use of insulin (HRC) BASIC METABOLIC PANEL Routine 07/11/2023 7:40 AM [employer] MM MAMMOGRAM DIAG BILAT W 3D LIAM Routine 08/13/2022 1:58 PM [employer] Breast pain, right Mass of right breast, unspecified quadrant LIPID PANEL & DIRECT LDL (IF NEEDED) Routine 06/01/2022 12:59 PM [employer] Routine health maintenance Hyperlipidemia, unspecified hyperlipidemia type COLONOSCOPY Routine 11/21/2020 9:30 AM CDT Screen for colon cancer HIV 1/2 AG/AB 4TH GEN Routine 06/29/2019 8:40 AM [employer] Routine health maintenance Screening for HIV (human immunodeficiency virus) HEPATITIS C ANTIBODY, WITH REFLEX Routine 06/29/2019 8:40 AM [employer] Routine health maintenance Need for hepatitis C screening test from Last 3 Months or Most Recently Relevant to Health Maintenance Results * (ABNORMAL) Albumin/Creatinine Ratio,Random Urine (07/16/2023 9:29 AM [employer] CLEANER) Albumin/Creati nine Ratio, Urine, Random 254(H) <30 mg/g 07/16/2023 11:43 AM [facility] Albumin, Urine, Random 241.5 mg/L 07/16/2023 11:43 AM [facility] Creatinine, Urine, Random 95 >20 mg/dL mg/dL 07/16/2023 11:43 AM [facility] Urine Non-blood Collection / Unknown 07/16/2023 9:29 AM [employer] 07/16/2023 9:29 AM [employer] Gopal Varghese DO LAB_1 Performing Organization Address [facility] de Phone Number [facility] [address] [id number] [phone] * (ABNORMAL) Hgb A1C (07/16/2023 9:27 AM [employer]ER) Hemoglobin A1C 7.6(H) <=5.6 % 07/16/2023 1:[address] [facility] Estimated Average Glucose (Calc) 171 < 117 mg/dL 07/16/2023 1:[address] [facility] Comment:Estimated average gl ucose (eAG) converts A1c into glucose units (mg/dL) and estimates average glucose over the past approximately 3 months. The eAG reference interval (<117 mg/dL) corresponds to an A1c of <5.7%. Blood Venipuncture / Unknown 07/16/2023 9:27 AM [employer] 07/16/2023 9:27 AM [facility] Narrative [facility] - 07/16/2023 1:02 PM [employer] For patients not previously diagnosed with diabetes: 5.7-6.4%: Increased risk for diabetes 6.5% and greater: Diagnostic for diabetes For patients diagnosed with diabetes: <8.0%: Goal of therapy for ages 18-75 Clinicians may recommend a higher or lower goal for specific individuals. Gopal Varghese DO LAB_1 Performing Organization Address [facility] Co de Phone Number [facility] [address] [place] [address], [facility] [phone] * (ABNORMAL) Basic Metabolic Panel (07/11/2023 7:40 AM [employer] CLE[employer]ER) Sodium 140 136 - 145 mmol/L 07/11/2023 8:22 AM [facility] Potassium 3.9 3.5 - 5.1 mmol/L 07/11/2023 8:22 AM [facility] Chloride 106 98 - 109 mmol/L 07/11/2023 8:22 AM [facility] CO2 25 20 - 29 mmol/L 07/11/2023 8:22 AM [facility] Anion Gap 9 7 - 16 mmol/L 07/11/2023 8:22 AM [facility] Calcium 9.1 8.4 - 10.4 mg/dL 07/11/2023 8:22 AM [facility] BUN 9 7 - 26 mg/dL 07/11/2023 8:22 AM [facility] Creatinine 0.64 0.55 - 1.02 mg/dL 07/11/2023 8:22 AM [facility] Glucose 116(H) 70 - 100 mg/dL 07/11/2023 8:22 AM [facility] Comment:The given reference range is for the fasting state. Non-fasting reference range for glucose is 70 - 180 mg/dL. GFR, Estimated >60 >60 mL/min/1.7 3m2 07/11/2023 8:22 AM [facility] Blood Venipuncture / Unknown 07/11/2023 7:40 AM [employer] 07/11/2023 7:46 AM [employer] Nba Herrera MD LAB_1 Performing Organization Address City/State/[facility] Co de Phone Number [address] [phone] * MM Mammogram Diag Bilat W 3D Liam (08/13/2022 1:58 PM [employer] CLEANER) Anatomical Region Laterality Modality Breast Bilateral Mammography 08/13/2022 1:58 PM [employer] CLE[employer]ER Narrative 08/13/2022 2:37 PM [employer]ER EXAM: MM MAMMOGRAM DIAG BILAT W 3D LIAM, MM US BREAST RT LOCATION: [facility] DATE/TIME: 08/13/2022 1:58 PM INDICATION: 61-year-old female presents for evaluation of right breast lump and pain. COMPARISON: Prior mammogram exams, including 08/06/2021 and 08/22/2020. MAMMOGRAPHIC FINDINGS: Bilateral full-field digital diagnostic mammograms performed. There are scattered areas of fibroglandular density. Images evaluated with the assistance of CAD. Breast tomosynthesis was used in interpretation. A metallic BB marker overlies the superior right and inferior right breast, denoting sites of clinical concern. No suspicious masses, calcifications, or architectural distortion associated with the palpable markers or elsewhere in either breast. No significant interval change. ULTRASOUND FINDINGS: Targeted ultrasound of the right breast with simultaneous palpation of the area of clinical concern at 5:00 6 cm from the nipple demonstrates normal tissue. Ultrasound of the area of patient's pain, with signs sales representative images obtained at 1:00 8 cm from the nipple, demonstrates normal tissue. IMPRESSION: No radiographic findings of malignancy. Specifically, no suspicious findings in the areas of concern in the right breast. Recommend any further management be based on clinical grounds. Otherwise, recommend annual screening mammography. ACR BI-RADS Category 1: Negative. Results given to the patient who should resume annual screening mammography. Procedure Note Katelyn David MD - 08/13/2022 EXAM: MM MAMMOGRAM DIAG BILAT W 3D LIAM, MM US BREAST RT LOCATION: [facility] DATE/TIME: 08/13/2022 1:58 PM INDICATION: 61-year-old female presents for evaluation of right breastlump and pain. COMPARISON: Prior mammogram exams, including 08/06/2021 and 08/22/2020. MAMMOGRAPHIC FINDINGS: Bilateral full-field digital diagnostic mammogramsperformed. There are scattered areas of fibroglandular density. Imagesevaluated with the assistance of CAD. Breast tomosynthesis was used ininterpretation. A metallic BB marker overlies the superior right andinferior right breast, denoting sites of clinical concern. No suspiciousmasses, calcifications, or architectural distortion associated with thepalpable markers or elsewhere in either breast. No significant intervalchange. ULTRASOUND FINDINGS: Targeted ultrasound of the right breast withsimultaneous palpation of the area of clinical concern at 5:00 6 cm fromthe nipple demonstrates normal tissue. Ultrasound of the area of patient'aquilino, with signs sales representative images obtained at 1:00 8 cm from the nipple,demonstrates normal tissue. IMPRESSION: No radiographic findings of malignancy. Specifically, no suspiciousfindings in the areas of concern in the right breast. Recommend anyfurther management be based on clinical grounds. Otherwise, recommendannual screening mammography. ACR BI-RADS Category 1: Negative. Results given to the patient who should resume annual screeningmammography. Gopal Varghese DO RAD GIO * Lipid Panel and Direct LDL(If Needed) (06/01/2022 12:59 PM [employer]ER) Cholesterol 158 0 - 199 mg/dL 06/01/2022 5:37 PM [employer]ER [facility] Triglyceride 78 <=149 mg/dL 06/01/2022 5:37 PM [employer] CLE[employer]ER [facility] HDL Cholesterol 53 >=40 mg/dL 06/01/2022 5:37 PM [employer] [facility] LDL, Calculated 89 <130 mg/dL 06/01/2022 5:37 PM [employer] CLE[employer]ER [facility] Non HDL Chol, Calculated 105 <=159 mg/dL 06/01/2022 5:37 PM [employer] [facility] Cholesterol/HDL Ratio 3.0 06/01/2022 5:37 PM CESSPOOL CLEANER [facility] Hours Fasting 1 06/01/2022 5:37 PM CESSPOOL CLEANER [facility] Blood Venipuncture / Unknown 06/01/2022 12:59 PM CESSPOOL CLEANER 06/01/2022 12:59 PM CESSPOOL CLEANER Gopal Varghese DO LAB_1 Performing Organization Address City/State/[facility] Co de Phone Number [facility] [address] [phone] [facility] [address] [place] [address] [phone] * Colonoscopy (ProVation order) (11/21/2020 9:30 AM CDT) 11/21/2020 9:30 AM CDT Narrative GI (PROVATION) - 11/21/2020 10:18 AM CDT Instrument Name: [id number] Indications: ? High risk colon cancer surveillance: Personal history ? of colonic polyps, High risk colon cancer ? surveillance: Personal history of multiple (3 or ? more) adenomas Providers: ? Ruben Enriquez MD, Deidra Tijerina LPN, Anastasiya Ny ? TIMOTHY Ku Referring MD: ?Gopal GimenezAdrian Varghese Medicines: ? Monitored Anesthesia Care Complications: ? No immediate complications. Procedure: ? Pre-Anesthesia Assessment: ? - Prior to the procedure, a History and Physical was ? performed, and patient medications and allergies were ? reviewed. The patient is competent. The risks and ? benefits of the procedure and the sedation options ? and risks were discussed with the patient. All ? questions were answered and informed consent was ? obtained. Patient identification and proposed ? procedure were verified by the physician and the ? nurse in the pre-procedure area in the procedure room ? in the endoscopy suite. Mental Status Examination: ? alert and oriented. Airway Examination: normal ? oropharyngeal airway and neck mobility. Respiratory ? Examination: clear to auscultation. CV Examination: ? normal. Prophylactic Antibiotics: The patient does ? not require prophylactic antibiotics. Prior ? Anticoagulants: The patient has taken no previous ? anticoagulant or antiplatelet agents. ASA Grade ? Assessment: II - A patient with mild systemic ? disease. After reviewing the risks and benefits, the ? patient was deemed in satisfactory condition to ? undergo the procedure. The anesthesia plan was to use ? monitored anesthesia care (MAC). Immediately prior to ? administration of medications, the patient was ? re-assessed for adequacy to receive sedatives. The ? heart rate, respiratory rate, oxygen saturations, ? blood pressure, adequacy of pulmonary ventilation, ? and response to care were monitored throughout the ? procedure. The physical status of the patient was ? re-assessed after the procedure. ? After I obtained informed consent, the scope was ? passed under direct vision. Prior to sedation, ? patient identity and procedure was reverified. ? Throughout the procedure, the patient's blood ? pressure, pulse, and oxygen saturations were ? monitored continuously.The PCF-H190L was introduced ? through the anus and advanced to the cecum, ? identified by appendiceal orifice and ileocecal ? valve. The colonoscopy was technically difficult and ? complex due to a redundant colon, significant looping ? and a tortuous colon. Successful completion of the ? procedure was aided by increasing the dose of ? sedation medication, using manual pressure, ? withdrawing and reinserting the scope, straightening ? and shortening the scope to obtain bowel loop ? reduction and using scope torsion. The patient ? tolerated the procedure fairly well. The quality of ? the bowel preparation was fair. Findings: ? The perianal and digital rectal examinations were normal. ? A 4 mm polyp was found in the sigmoid colon. The polyp was sessile. ? The polyp was removed with a cold snare. Resection and retrieval were ? complete. Verification of patient identification for the specimen was ? done. Estimated blood loss was minimal. ? A 3 mm polyp was found in the transverse colon. The polyp was ? sessile. The polyp was removed with a cold snare. Resection and ? retrieval were complete. Verification of patient identification for ? the specimen was done. Estimated blood loss was minimal. ? A 1 mm polyp was found in the cecum. The polyp was sessile. The polyp ? was removed with a jumbo cold forceps. Resection and retrieval were ? complete. Verification of patient identification for the specimen was ? done. Estimated blood loss was minimal. ? Multiple small and large-mouthed diverticula were found in the ? sigmoid colon. ? The retroflexed view of the distal rectum and anal verge was normal ? and showed no anal or rectal abnormalities. Moderate Sedation: ? An independent trained observer was present and continuously ? monitored the patient. Impression: ?- Preparation of the colon was fair. ? - One 4 mm polyp in the sigmoid colon, removed with a ? cold snare. Resected and retrieved. ? - One 3 mm polyp in the transverse colon, removed ? with a cold snare. Resected and retrieved. ? - One 1 mm polyp in the cecum, removed with a jumbo ? cold forceps. Resected and retrieved. ? - Diverticulosis in the sigmoid colon. ? - The distal rectum and anal verge are normal on ? retroflexion view. Recommendation: ?- Discharge patient to home (ambulatory). ? - High fiber diet indefinitely. ? - No ibuprofen, naproxen, or other non-steroidal ? anti-inflammatory drugs for 5 days after polyp ? removal. ? - Await pathology results. ? - For future colonoscopy the patient will require an ? extended preparation. If there are any questions, ? please contact the cnc operator. ? - Repeat colonoscopy in 2 years for surveillance. ? - Return to referring physician as previously ? scheduled. ? - Patient's sedation for a repeat study will require ? Anesthesia staff assistance. Procedure Code(s): ?? --- Professional --- ? 25781, 22,PT ? 06956, 59,PT ? --- Technical --- ? 00811, PT ? 25123, 59,PT Diagnosis Code(s): ?? --- Professional --- ? K63.5 ? Z12.11 ? Z86.010 ? K57.30 ? --- Technical --- ? K63.5 ? Z12.11 ? Z86.010 ? K57.30 CPT copyright 2019 [employer]. All rights reserved. The codes documented in this report are preliminary and upon general contractor review may be revised to meet current compliance requirements. Attending Participation: MD Ruben Rodriguez MD 11/21/2020 10:18:12 AM This report has been signed electronically. Number of Addenda: 0 Note Initiated On: 11/21/2020 9:30 AM Procedure Note Ruben Enriquez MD - 11/21/2020 Instrument Name: [id number] Indications: High risk colon cancer surveillance: Personal history of colonic polyps, High risk colon cancer surveillance: Personal history of multiple (3 or more) adenomas Providers: Ruben Enriquez MD, Deidra Tijerina LPN, Anastasiya Ku RN Referring MD: Gopal Varghese Medicines: Monitored Anesthesia Care Complications: No immediate complications. Procedure: Pre-Anesthesia Assessment: - Prior to the procedure, a History and Physical was performed, and patient medications and allergies were reviewed. The patient is competent. The risks and benefits of the procedure and the sedation options and risks were discussed with the patient. All questions were answered and informed consent was obtained. Patient identification and proposed procedure were verified by the physician and the nurse in the pre-procedure area in the procedure room in the endoscopy suite. Mental Status Examination: alert and oriented. Airway Examination: normal oropharyngeal airway and neck mobility. Respiratory Examination: clear to auscultation. CV Examination: normal. Prophylactic Antibiotics: The patient does not require prophylactic antibiotics. Prior Anticoagulants: The patient has taken no previous anticoagulant or antiplatelet agents. ASA Grade Assessment: II - A patient with mild systemic disease. After reviewing the risks and benefits, the patient was deemed in satisfactory condition to undergo the procedure. The anesthesia plan was to use monitored anesthesia care (MAC). Immediately prior to administration of medications, the patient was re-assessed for adequacy to receive sedatives. The heart rate, respiratory rate, oxygen saturations, blood pressure, adequacy of pulmonary ventilation, and response to care were monitored throughout the procedure. The physical status of the patient was re-assessed after the procedure. After I obtained informed consent, the scope was passed under direct vision. Prior to sedation, patient identity and procedure was reverified. Throughout the procedure, the patient's blood pressure, pulse, and oxygen saturations were monitored continuously.The PCF-H190L was introduced through the anus and advanced to the cecum, identified by appendiceal orifice and ileocecal valve. The colonoscopy was technically difficult and complex due to a redundant colon, significant looping and a tortuous colon. Successful completion of the procedure was aided by increasing the dose of sedation medication, using manual pressure, withdrawing and reinserting the scope, straightening and shortening the scope to obtain bowel loop reduction and using scope torsion. The patient tolerated the procedure fairly well. The quality of the bowel preparation was fair. Findings: The perianal and digital rectal examinations were normal. A 4 mm polyp was found in the sigmoid colon. The polyp was sessile. The polyp was removed with a cold snare. Resection and retrieval were complete. Verification of patient identification for the specimen was done. Estimated blood loss was minimal. A 3 mm polyp was found in the transverse colon. The polyp was sessile. The polyp was removed with a cold snare. Resection and retrieval were complete. Verification of patient identification for the specimen was done. Estimated blood loss was minimal. A 1 mm polyp was found in the cecum. The polyp was sessile. The polyp was removed with a jumbo cold forceps. Resection and retrieval were complete. Verification of patient identification for the specimen was done. Estimated blood loss was minimal. Multiple small and large-mouthed diverticula were found in the sigmoid colon. The retroflexed view of the distal rectum and anal verge was normal and showed no anal or rectal abnormalities. Moderate Sedation: An independent trained observer was present and continuously monitored the patient. Impression: - Preparation of the colon was fair. - One 4 mm polyp in the sigmoid colon, removed with a cold snare. Resected and retrieved. - One 3 mm polyp in the transverse colon, removed with a cold snare. Resected and retrieved. - One 1 mm polyp in the cecum, removed with a jumbo cold forceps. Resected and retrieved. - Diverticulosis in the sigmoid colon. - The distal rectum and anal verge are normal on retroflexion view. Recommendation: - Discharge patient to home (ambulatory). - High fiber diet indefinitely. - No ibuprofen, naproxen, or other non-steroidal anti-inflammatory drugs for 5 days after polyp removal. - Await pathology results. - For future colonoscopy the patient will require an extended preparation. If there are any questions, please contact the cnc operator. - Repeat colonoscopy in 2 years for surveillance. - Return to referring physician as previously scheduled. - Patient's sedation for a repeat study will require Anesthesia staff assistance. Procedure Code(s): --- Professional --- 17804, 22,PT 87207, 59,PT --- Technical --- [address], [place] [address], 59,PT Diagnosis Code(s): --- Professional --- K63.5 Z12.11 Z86.010 K57.30 --- Technical --- K63.5 Z12.11 Z86.010 K57.30 CPT copyright 2019 [employer]. All rights reserved. The codes documented in this report are preliminary and upon general contractor review may be revised to meet current compliance requirements. Attending Participation: MD Ruben Rodriguez MD 11/21/2020 10:18:12 AM This report has been signed electronically. Number of Addenda: 0 Note Initiated On: 11/21/2020 9:30 AM Ruben Enriquez MD [facility] ([facility]) [place], [place] * HIV 1/2 Ag/Ab 4th Generation (06/29/2019 8:40 AM CESSPOOL CLEANER) HIV 1/2 Antigen/Anti body (4th generation) Negative (Non Reactive) Negative (Non Reactive) 06/29/2019 1:10 PM CESSPOOL CLEANER [facility] Comment:HIV-1 p24 Antigen an d HIV-1/HIV-2 Antibody not detected Blood Venipuncture / Unknown 06/29/2019 8:40 AM CESSPOOL CLEANER 06/29/2019 8:41 AM CESSPOOL CLEANER Gopal Varghese DO LAB_1 Performing Organization Address [facility] Co de Phone Number [employer] [address] [place] [address], [facility] [phone] * HEP C recommended for patients born between 6159-3402 (06/29/2019 8:40 AM CESSPOOL CLEANER) Hepatitis C Antibody Negative (Non Reactive) Negative (Non Reactive) 06/29/2019 1:09 PM CESSPOOL CLEANER [facility] Comment:Antibodies to HCV no t detected. Does not exclude the possiblity of exposure to HCV. Blood Venipuncture / Unknown 06/29/2019 8:40 AM CESSPOOL CLEANER 06/29/2019 8:41 AM CESSPOOL CLEANER Gopal Varghese DO LAB_1 Performing Organization Address City/State/[facility] Co de Phone Number [facility] [address] [place] [address], [facility] [phone] from Last 3 Months or Most Recently Relevant to Health Maintenance Advance Directives * Full Code (Latest Code Status on File) Date Activated Date Inactivated Comments 07/09/2023 4:27 PM 07/11/2023 4:21 PM Care Teams Pony Cylinder Press Operator Relationship Specialty Start Date End Date Gopal Varghese DO [address] [address] PCP - General Family Practice 05/29/19
--- OUTSIDE RECORDS SUMMARY | 2024-02-26 17:54 | XMS_ITS | Encounter Summary ---
Author Organization [employer] Address [address], [place] [address] Care Team Providers Care Sliver Former Name Role Phone Gopal Varghese Primary Care Provider [phone] Reason for Visit * Reason Comments Refill metFORMIN XR (GLUCOP URSULA XR) 500 MG 24 hour release tablet [Pharmacy Med Name: METFORMIN ER 500MG 24HR TABS] Encounter Details Date Type Department Care Team (Late st Contact Info) Description 12/21/2023 Refill [facility] [address] [facility]. [place], [place] [id number] Severiano Moreno, ENGINEERING ASSOCIATE, CARPENTER REPAIRER [address] [place] [address] Refill (metFORMIN XR (GLUCOPHAGE XR) 500 MG [...] Nursing Notes * Gopal Varghese DO - 12/22/2023 4:47 PM CDT Medication refilled Gopal Varghese DO * Daisha Amaro RN - 12/22/2023 4:43 PM CDT Rn called and confirm that pt is still 2000 mg, okay to send rx under new PCP? Pt needs refill NEGIN. * Una Whitaker RN - 12/22/2023 2:40 PM CDT Further Assistance Needed on Refill from Nursing/Triage Please clarify how patient is taking medication. Please update med list/sig if appropriate Next steps: Nursing/Triage to complete refill as appropriate. Requested Prescriptions Pending Prescriptions Disp Refills metFORMIN XR (GLUCOPHAGE XR) 500 MG 24 hour release tablet [Pharmacy Med Name: METFORMIN ER 500MG 24HR TABS] 360 Tablet 0 Sig: TAKE 4 TABLETS(2000 MG) BY MOUTH DAILY * Latoya Aguilarwcomm - 12/21/2023 5:20 AM CDT metFORMIN XR (GLUCOPHAGE XR) 500 MG 24 hour release tablet [Pharmacy Med Name: METFORMIN ER 500MG 24HR TABS] Metformin -> An office visit is overdue (performed over 13 months ago, required every 12 months). Last qualifying visit: 11/13/2022 (with SEVERIANO MORENO) (A more recent visit (in Internal Medicine with RONI ROGEL) was found) Next scheduled visit: None Last ordered by SEVERIANO MORENO: 11/13/2022 (403 days ago) QTY: 360, Refills: 3, Sig: take 4 tablets (2,000 mg) by mouth daily. (changed but equivalent) Cr: 0.64 mg/dL on 07/11/2023 HBA1C: 7.6 % on 07/16/2023 [facility] Embedded Refills, Reference: [id number], 12/21/2023 5:20:35 AM CDT, Pool: Refill Centralized Services - Primary Care ([id number]) * Latoya Aguilar - 12/21/2023 5:20 AM CDT The following lab order(s) may be associated with the Result Note below: HGB A1C Notes recorded by Gopal Varghese on 07/19/2023 at 7:56 AM MEMBER SERVICES COORDINATOR Zahira, the results of your hemoglobin A1c test which is an average blood glucose level for the last 3 months has gone up compared to when we last checked it 1 year ago. I would recommend continuingto maintain an active lifestyle as well as balanced diet. I would also recommend continuing to takemetformin. If you would like I would be happy to place referral to meet with the salesperson men's hats. Please let me know your thoughts you may send me a [employer] message or contact clinic at [phone] SincerelTheron nguyen * Latoya Aguilar - 12/21/2023 5:20 AM CDT The following lab order(s) may be associated with the following Patient Result Comment (Entered by Gopal Varghese DO at 07/19/2023 8:56 AM): HGB A1C Zahira, the results of your hemoglobin A1c test which is an average blood glucose level for the last 3 months has gone up compared to when we last checked it 1 year ago. I would recommend continuingto maintain an active lifestyle as well as balanced diet. I would also recommend continuing to takemetformin. If you would like I would be happy to place referral to meet with the salesperson men's hats.Please let me know your thoughts you may send me a [employer] message or contact clinic at [phone], Rob Hlavacek documented in this encounter Plan of Treatment Not on file documented as of this encounter Visit Diagnoses Diagnosis Type 2 diabetes mellitus without complication, without long-term current use of insulin (HRC)- Primary Essential hypertension (HRC) Unspecified essential hypertension documented in this encounter Care Teams Sliver Former Relationship Specialty Start Date End Date Gopal Varghese DO [address] [place] [address] PCP - General Family Practice 05/29/19 documented as of this encounter
[2024-02-26 18:00] VITALS: PULSE 91; O2SAT 96
[2024-02-26 18:08] LABS: Lactate* 1.6 mmol/L (0.5-1.9)
--- NOTE | 2024-02-26 18:10 | ED.GENADULT ---
HPI - General Adult General Chief complaint: Shortness of Breath/Dyspnea Stated complaint: trouble breathing Time Seen by Provider: 02/26/24 17:11 Source: patient Mode of arrival: ambulatory Limitations: no limitations History of Present Illness HPI narrative: Patient is a 63-year-old female coming in today complaining of difficulty breathing. She states that she has been feeling short of breath for 1 week. She denies fevers or chills. She has a cough. She does have a history of COPD. Patient has DuoNebs at home, states that she last had 1 in our go and she has been using albuterol as well without significant relief of her symptoms. She states that she has had COPD exacerbations before and this feels very similar to those times. She states that her foster baby does have cold symptoms and she believes she has got those cold symptoms as well. This includes a stuffy and runny nose. She denies swelling of her extremities. She states that her appetite is decreased and she has a hard time sleeping because she has a hard time breathing. Past medical history significant for COPD, diabetes, hypertension, restless leg syndrome and lung cancer status post what sounds like a lobectomy. Related Data Home Medications ?Medication ?Instructions ?Recorded ?Confirmed albuterol sulfate .ROUTE 02/26/24 amlodipine 10 mg tablet 10 mg PO DAILY 02/26/24 02/26/24 atorvastatin 40 mg tablet 40 mg PO DAILY 02/26/24 02/26/24 budesonide-formoterol HFA 160 1 inh inhalation BID 02/26/24 02/26/24 mcg-4.5 mcg/actuation aerosol inhaler (Symbicort) gabapentin 300 mg capsule 300 mg PO TID 02/26/24 02/26/24 ipratropium-albuterol inhalation 02/26/24 lisinopril 20 mg tablet 20 mg PO DAILY 02/26/24 02/26/24 metformin 500 mg tablet 1,000 mg PO DAILY 02/26/24 02/26/24 sertraline 100 mg tablet 100 mg PO Q24H 02/26/24 02/26/24 Previous Rx's ?Medication ?Instructions ?Recorded azithromycin 250 mg tablet 250 mg PO DIRECTED #6 tabs 02/26/24 prednisone 20 mg tablet 20 mg PO DIRECTED 9 days #18 02/26/24 tabs Allergies Allergy/AdvReac Type Severity Reaction Status Date / Time Unable to Assess Allergy Unverified 02/26/24 17:20 Review of Systems Status of ROS: Reports: 10 or more systems reviewed and unremarkable except as noted in History and below Exam Narrative: Exam Narrative: Well-nourished well-developed patient in acute respiratory distress. Patient is very tearful and anxious. Alert and oriented x3. Answers questions appropriately. Mood and affect are appropriate. Thoughts are goal oriented and rational. No tangential or magical thinking noted. Patient cannot complete a full sentence without needing to catch her breath. She is tachypneic and audibly wheezing. HEENT: Normocephalic atraumatic. Pupils are equally round reactive to light. Extraocular muscles are intact. Conjunctivae are moist without any icterus noted. Moist mucous membranes. Posterior pharynx is normal. Neck is soft. Cardiovascular: Heart is regular rate and rhythm S1 and S2 are present without any murmurs. Lungs: Diffuse bilateral wheezing noted. Abdomen: Soft and nontender nondistended with normal bowel sounds. Extremities: Bilateral lower extremities are without edema. Skin: Well perfused without any obvious rashes. Const: Vital Signs, click to edit/add: Vital Signs - 24 hr 02/26/24 17:15 02/26/24 17:48 02/26/24 18:00 Temperature 99 F Pulse Rate 88 91 Pulse Rate [Pulse Oximeter] 109 H Respiratory Rate 32 H Blood Pressure [Ri ght Upper Arm] 195/119 H Pulse Oximetry 97 100 96 Oxygen Delivery Me thod Room Air Course Course ED Course: IV is ordered. Patient is given oral prednisone and a DuoNeb as well as oral alprazolam. Patient does feel much better after treatment. Her wheezing has resolved on re-examination. EKG, read by me, shows normal sinus rhythm with premature atrial complexes, pulse 91. Lab work was unremarkable. Chest x-ray, read by me, does not show any acute processes. Vital Signs Vital signs: Initial Vital Signs Temperature 99 F 02/26/24 17:15 Temperature Source Temporal Artery Scan 02/26/24 17:15 Pulse Rate 109 H 02/26/24 17:15 Respiratory Rate 32 H 02/26/24 17:15 Blood Pressure 195/119 H 02/26/24 17:15 Blood Pressure Mean 144 H 02/26/24 17:15 Blood Pressure Position Sitting 02/26/24 17:15 Pulse Oximetry 97 02/26/24 17:15 Oxygen Delivery Method Room Air 02/26/24 17:15 Vital Signs Temperature 99 F 02/26/24 17:15 Pulse Rate 109 H 02/26/24 17:15 Respiratory Rate 32 H 02/26/24 17:15 Blood Pressure 195/119 H 02/26/24 17:15 Pulse Oximetry 97 02/26/24 17:15 Oxygen Delivery Method Room Air 02/26/24 17:15 Temperature 99 F 02/26/24 17:15 Pulse Rate 91 02/26/24 18:00 Respiratory Rate 32 H 02/26/24 17:15 Blood Pressure 195/119 H 02/26/24 17:15 Pulse Oximetry 96 02/26/24 18:00 Oxygen Delivery Method Room Air 02/26/24 17:15 Medications Administered Medications: Discontinued Medications Generic Name Dose Route Start Last Admin Trade Name Freq PRN Reason Stop Dose Admin Albuterol/Ipratropium 1 neb 02/26/24 17:24 02/26/24 17:41 Iprat-Albut 0.5-2.5 Mg/3 Ml Neb IH 02/26/24 17:25 1 neb ONCE ONE Administration Alprazolam 0.25 mg 02/26/24 17:25 02/26/24 17:42 Alprazolam 0.25 Mg Tablet PO 02/26/24 17:26 0.25 mg ONCE ONE Administration Prednisone 60 mg 02/26/24 17:24 02/26/24 17:37 Prednisone 20 Mg Tablet PO 02/26/24 17:25 60 mg ONCE ONE Administration Medical Decision Making [facility] Narrative Medical decision making narrative: 63-year-old female with upper respiratory infection and consequent COPD exacerbation. Will treat the patient with a steroid taper as well as azithromycin given her comorbidities. Patient will follow-up with her PCP. Lab Data Lab results reviewed: Yes I reviewed the patient's lab results Labs: Lab Results 02/26/24 02/26/24 Range/Units 17:45 18:00 WBC 6.38 (4.50-11.00) K/uL RBC 3.99 L (4.00-5.20) m/uL Hgb 12.0 (12.0-16.0) gm/dL Hct 38.1 (33.0-51.0) % MCV 96 (80-100) fL MCH 30 (26-34) pg MCHC 32 (32-36) gm/dL RDW Coeff of N[place]um 13.1 (11.5-15.5) % Plt Count 278 (140-440) K/uL Neut % (Auto) 51.8 (42.0-72.0) % Lymph % (Auto) 34.2 (20-44) % [place] % (Auto) 8.3 (0.0-11.0) % Eos % (Auto) 5.2 (0.0-7.0) % Baso % (Auto) 0.5 (0.0-3.0) % Neut # (Auto) 3.31 (1.7-7.0) K/uL Lymph # (Auto) 2.18 (0.90-2.90) K/uL [place] # (Auto) 0.50 (0.00-0.90) K/UL Eos # (Auto) 0.33 (0.00-0.50) K/uL Baso # (Auto) 0.03 (0.00-0.30) K/uL Abs Immat Gran (auto) 0.00 (0.00-0.30) K/uL Imm/Tot Granulo (auto) 0.0 % Sodium 142 (135-149) mmol/L Potassium 4.4 (3.6-5.1) mmol/L Chloride 108 (96-114) mmol/L Carbon Dioxide 26 (20-32) mmol/L Anion Gap 8 (7-15) mEq/L BUN 13 (7-30) mg/dL Creatinine 0.5 (0.5-1.5) mg/dL Estimated Creat Clear 51.14 Estimated GFR 105 ml/min Glucose 81 (60-115) mg/dL Lactate 1.6 (0.5-1.9) mmol/L Calcium 9.5 (8.4-10.6) mg/dL Magnesium 1.8 (1.5-2.6) mg/dL Total Bilirubin 0.3 (0.1-1.5) mg/dL Direct Bilirubin 0.3 (0.0-0.5) mg/dL AST 28 (12-35) U/L ALT 16 (4-35) U/L Alkaline Phosphatase 75 (40-150) U/L Troponin I < 0.01 L (0.01-0.04) ng/mL C-Reactive Protein 0.7 (0.5-1.0) mg/dL Total Protein 7.3 (6.0-8.3) g/dL Albumin 4.4 (3.3-5.0) g/dL SARS-CoV-2 (PCR) Negative SARS-CoV-2 (Negative) Influenza Type A (PCR) Negative PCR FLU A (Negative) Influenza Type B (PCR) Negative PCR FLU B (Negative) RSV (PCR) Negative PCR RSV (Negative) Imaging Data Chest x-ray: Attestation: I have reviewed the pertinent imaging results. Radiologist's impression: Chest 2 views. COMPARISON: None available. FINDINGS: No pneumothorax or pleural effusion. Postoperative changes with suture line in the right upper lobe. Multiple surgical clips in the lower right paratracheal region. Lungs are otherwise clear. Cardiac and mediastinal contours are within normal limits. Upper abdomen and osseous structures as imaged show no acute abnormality. IMPRESSION: No evidence of acute cardiopulmonary disease. ECG Data Attestation: I personally reviewed and interpreted this ECG as follows: Discharge Plan Discharge Clinical Impression: Acute exacerbation of chronic obstructive pulmonary disease, Acute upper respiratory infection Patient Disposition: Home, Self-Care Condition: Stable Additional Instructions: Take all steroids and antibiotics as prescribed. Continue using your DuoNeb as needed and continue using your daily inhalers as prescribed. I recommend you follow-up with your primary care provider next week. It was a pleasure taking care of you today. Prescriptions: New azithromycin 250 mg tablet 250 mg PO DIRECTED Qty: 6 0RF Taper: Z-DELLA 500 mg Q24H for 1 Day and 0 Hour 250 mg Q24H for 4 Days and 0 Hour Rx Instructions: For 250 mg dose pack: take 500 mg today (day 1), then 250 mg for 4 days (days 2-5) prednisone 20 mg tablet 20 mg PO DIRECTED 9 Days Qty: 18 0RF Rx Instructions: 60 mg p.o. daily for 3 days (3 tablets daily on day 1-3), 40 mg daily for 3 days (2 tablets daily on days 4-6), 20 mg daily for 3 days (1 tablet daily on days 7-9). No Action budesonide-formoterol [Symbicort] 160-4.5 mcg/actuation HFA aerosol inhaler 1 inh inhalation BID albuterol sulfate .ROUTE ipratropium-albuterol [DuoNeb] inhalation lisinopril 20 mg tablet 20 mg PO DAILY gabapentin 300 mg capsule 300 mg PO TID metformin 500 mg tablet 1,000 mg PO DAILY amlodipine 10 mg tablet 10 mg PO DAILY atorvastatin 40 mg tablet 40 mg PO DAILY sertraline 100 mg tablet 100 mg PO Q24H Follow Up/Referrals: Provider,Not a Local [Primary Care Provider] - Stand Alone Forms: [email or web address] Info Instructions
[2024-02-26 18:11] LABS: Basophils Absolute Auto 0.03 K/uL (0.00-0.30); Basophils Percent Auto 0.5 % (0.0-3.0); Eosinophils Absolute Auto 0.33 K/uL (0.00-0.50); Eosinophils Percent Auto 5.2 % (0.0-7.0); Hematocrit 38.1 % (33.0-51.0); Lymphocytes Absolute Auto 2.18 K/uL (0.90-2.90); Lymphocytes Percent Auto 34.2 % (20-44); Mean Corpuscular HGB Conc 32 gm/dL (32-36); Mean Corpuscular Hemoglobin 30 pg (26-34); Mean Corpuscular Volume 96 fL (80-100); Monocytes Percent Auto 8.3 % (0.0-11.0); Neutrophils Absolute Auto 3.31 K/uL (1.7-7.0); Neutrophils Percent Auto 51.8 % (42.0-72.0); Platelet Count* 278 K/uL (140-440); RDW Coefficient of Variation % 13.1 % (11.5-15.5); Red Blood Count 3.99 m/uL (4.00-5.20); White Blood Count* 6.38 K/uL (4.50-11.00)
[2024-02-26 18:12] LABS: Slide Review Reflex No
[2024-02-26 18:28] LABS: Albumin* 4.4 g/dL (3.3-5.0)
[2024-02-26 18:28] LABS: PCR FLU A Negative PCR FLU A (Negative); PCR FLU B Negative PCR FLU B (Negative); PCR RSV Negative PCR RSV (Negative); SARS PCR* Negative SARS-CoV-2 (Negative)
[2024-02-26 18:29] LABS: Chloride* 108 mmol/L (96-114); Potassium* 4.4 mmol/L (3.6-5.1); Sodium* 142 mmol/L (135-149)
[2024-02-26 18:31] LABS: Alanine Aminotransferase* 16 U/L (4-35); Alkaline Phosphatase* 75 U/L (40-150); Aspartate Amino Transferase* 28 U/L (12-35); Bilirubin Direct* 0.3 mg/dL (0.0-0.5); Bilirubin Total* 0.3 mg/dL (0.1-1.5); Creatinine* 0.5 mg/dL (0.5-1.5); Est. Creatinine Clearance* 51.14; Estimated Glomerular Filt Rate 105 ml/min; Magnesium* 1.8 mg/dL (1.5-2.6); Total Protein* 7.3 g/dL (6.0-8.3)
[2024-02-26 18:32] LABS: Anion Gap 8 mEq/L (7-15); Blood Urea Nitrogen* 13 mg/dL (7-30); Carbon Dioxide* 26 mmol/L (20-32); Glucose* 81 mg/dL (60-115)
[2024-02-26 18:33] LABS: Calcium* 9.5 mg/dL (8.4-10.6)
[2024-02-26 18:35] LABS: C Reactive Protein* 0.7 mg/dL (0.5-1.0)
[2024-02-26 18:46] LABS: Troponin I* < 0.01 ng/mL (0.01-0.04)
[2024-02-26 19:05] VITALS: BP 127/92; PULSE 105; O2SAT 97
== END 2024-02-26 19:26 | disposition home or self-care (01) ==
PROVIDERS: Emergency Provider Family Medicine
DX: J44.1 Chronic obstructive pulmonary disease with (acute) exacerbation (principal); J06.9 Acute upper respiratory infection, unspecified
CPT/HCPCS: 36415; 71046; 80048; 80076; 83605; 83735; 84484; 85025; 86140; 87631; 93005; 94761; 99284; 99285; A9270; J7512

== ENCOUNTER 2024-06-10 06:57 | Emergency (ER) | payer OTHER, SELFPAY ==
[2024-06-10 07:06] VITALS: BP 185/121; PULSE 103; RESP 26; TEMP 36.6; O2SAT 90; BMI 25.7
--- NOTE | 2024-06-10 07:17 | CRLHL7_ITS ---
For Patients: As a result of the Cures Act, medical imaging exams and procedure reports are released immediately into your electronic medical record. You may view this report before your referring provider. If you have questions, please contact your health care provider. Indication: Shortness of breath. History of COPD. History of cancer of right lung. Partial right lung removal. Technique: Chest 2 views. Comparison: Chest radiograph 02/26/2024. Findings: The cardiomediastinal silhouette size is normal. There are postoperative changes on the right with a suture line in the right upper lobe and surgical clips along the right hilum. There is no focal pulmonary opacity, pleural effusion or pneumothorax. Degenerative changes in the spine. Cholecystectomy clips. Impression: No acute cardiopulmonary abnormality. Dictated by Prachi Zuniga MD @ 06/10/2024 8:26:27 AM (Electronically Signed)
--- NOTE | 2024-06-10 07:17 | ED.GENADULT ---
HPI - General Adult General Chief complaint: Shortness of Breath/Dyspnea <Deidra Conroy MD - Last Filed: 06/11/24 00:29> Stated complaint: difficulty breathing <Deidra Conroy MD - Last Filed: 06/11/24 00:29> Time Seen by Provider: 06/10/24 07:02 <Deidra Conroy MD - Last Filed: 06/11/24 00:29> Source: patient <Deidra Conroy MD - Last Filed: 06/11/24 00:29> Mode of arrival: ambulatory <Deidra Conroy MD - Last Filed: 06/11/24 00:29> Limitations: no limitations <Deidra Conroy MD - Last Filed: 06/11/24 00:29> History of Present Illness HPI narrative: 63-year-old female with a history of COPD, still smoking a few cigarettes per day presents to the ED with dyspnea, worsening over the past couple of days. She ran out of her inhaler. Last ED visit was in February for COPD flare. No reviewed. No history DVT or PE. No history of coronary artery disease per her report. She does have hyperlipidemia, diabetes and hypertension. Denies any chest pain. Cough is not productive. Feels very wheezy. Upper airway congestion. No obvious sick contacts. No pertinent travel. Did not have any interventions at home. Has responded well to steroids, so typical COPD treatment in the past. Denies history of intubation for her COPD. No history of DVT or PE. No fever. She did have a wedge resection for lung cancer 3 years ago but did not require any chemotherapy or radiation per her report. No hemoptysis. Past medical history notable for hypertension, COPD, diabetes. Meds reviewed, allergies to bismuth and Cipro. Still smoking. ROS is notable for the dyspnea and cough as stated above, otherwise denies times 12 systems. <Deidra Conroy MD - Last Filed: 06/11/24 00:29> Related Data Home medications: Home Medications ?Medication ?Instructions ?Recorded ?Confirmed amlodipine 10 mg tablet 10 mg PO DAILY 02/26/24 06/10/24 atorvastatin 40 mg tablet 40 mg PO DAILY 02/26/24 06/10/24 budesonide-formoterol HFA 160 1 inh inhalation BID 02/26/24 06/10/24 mcg-4.5 mcg/actuation aerosol inhaler (Symbicort) gabapentin 300 mg capsule 300 mg PO TID 02/26/24 06/10/24 ipratropium-albuterol inhalation 02/26/24 lisinopril 20 mg tablet 20 mg PO DAILY 02/26/24 06/10/24 metformin 500 mg tablet 1,000 mg PO DAILY 02/26/24 06/10/24 ipratropium 0.5 mg-albuterol 3 mg 3 ml inhalation QID 06/10/24 06/10/24 (2.5 mg base)/3 mL nebulization soln varenicline 0.5 mg (11)-1 mg (42) 1 ea PO DIRECTED 06/10/24 06/10/24 tablets in a dose pack Previous Rx's ?Medication ?Instructions ?Recorded albuterol sulfate 90 mcg/actuation 2 inh inhalation Q2H PRN dyspnea 06/10/24 breath activated powder inhaler #2 ea azithromycin 250 mg tablet See Rx Instructions PO .COMPLEX #6 06/10/24 tabs inhalational spacing device #1 ea 06/10/24 (BreatheRite MDI Spacer) ipratropium 0.5 mg-albuterol 3 mg 3 ml inhalation Q6H PRN shortness 06/10/24 (2.5 mg base)/3 mL nebulization of breath or wheezing #180 mL soln prednisone 20 mg tablet 20 mg PO BID #10 tabs 06/10/24 <Deidra Conroy MD - Last Filed: 06/11/24 00:29> Allergies/adverse reactions: Allergies Allergy/AdvReac Type Severity Reaction Status Date / Time bismuth subsalicylate Allergy Severe Anaphylaxis Verified 06/10/24 07:08 ciprofloxacin Allergy Severe Anaphylaxis Verified 06/10/24 07:08 <Deidra Conroy MD - Last Filed: 06/11/24 00:29> Exam Const: Vital Signs, click to edit/add: Vital Signs - 24 hr 06/10/24 07:06 06/10/24 08:20 Temperature 97.9 F Pulse Rate [Right Pulse Oximeter] 103 H Respiratory Rate 26 H Blood Pressure [Ri ght Upper Arm] 185/121 H 137/98 H Pulse Oximetry 90 Oxygen Delivery Me thod Room Air <Deidra Conroy MD - Last Filed: 06/11/24 00:29> Vital Signs, click to edit/add: Vital Signs - 24 hr 06/10/24 07:06 06/10/24 08:20 Temperature 97.9 F Pulse Rate [Right Pulse Oximeter] 103 H Respiratory Rate 26 H Blood Pressure [Ri ght Upper Arm] 185/121 H 137/98 H Pulse Oximetry 90 Oxygen Delivery Me thod Room Air <Elliot Lake MD - Last Filed: 06/10/24 10:53> Documenting provider has reviewed patient's vital signs: yes <Deidra Conroy MD - Last Filed: 06/11/24 00:29> Common normals: alert <Deidra Conroy MD - Last Filed: 06/11/24 00:29> Other: Mild respiratory distress. Can speak in 2-3 word sentences. Sitting upright. Answers questions honestly, normal mentation. Friendly and cooperative. <Deidra Conroy MD - Last Filed: 06/11/24 00:29> HENMT: Common normals: normocephalic <Deidra Conroy MD - Last Filed: 06/11/24 00:29> Head and scalp: normocephalic <Deidra Conroy MD - Last Filed: 06/11/24 00:29> Face and sinus: normal facial exam <MD Titus Garcia Last Filed: 06/11/24 00:29> Mouth: oral and palatal mucosa normal <Deidra Conroy MD - Last Filed: 06/11/24 00:29> Throat: posterior oropharynx normal <MD Titus Garcia Last Filed: 06/11/24 00:29> Eye: Common normals: conjunctivae normal <Deidra Conroy MD - Last Filed: 06/11/24 00:29> General eye: normal appearance of both eyes <MD Titus Garcia Last Filed: 06/11/24 00:29> Conjunctiva: conjunctiva(e) normal <Deidra Conroy MD - Last Filed: 06/11/24 00:29> Neck & C-Spine: Common normals: full ROM and no lymphadenopathy <MD Titus Garcia Last Filed: 06/11/24 00:29> Chest: Common normals: inspection of chest normal <MD Titus Garcia Last Filed: 06/11/24 00:29> Resp: Other: moderately increased respiratory effort. O2 sats of 90% noted with tachypnea. Expiration is prolonged about 4:1 compared inspiration. Expiratory wheeze noted. Poor air entry. <MD Titus Garcia Last Filed: 06/11/24 00:29> Cardio: Common normals: regular rate, regular rhythm, S1 normal heart sound, S2 normal heart sound and no murmurs <MD Titus Garcia Last Filed: 06/11/24 00:29> Rate: regular rate <MD Titus Garcia Last Filed: 06/11/24 00:29> Rhythm: regular rhythm <MD Titus Garcia Last Filed: 06/11/24 00:29> Heart sounds: S1 normal and S2 normal <MD Titus Garcia Last Filed: 06/11/24 00:29> Extremity: Common normals: normal to inspection, normal capillary refill and no pedal edema <MD Titus Garcia Last Filed: 06/11/24 00:29> Neuro: Sensorium/orientation: alert <MD Titus Garcia Last Filed: 06/11/24 00:29> Speech: speech normal <MD Titus Garcia Last Filed: 06/11/24 00:29> Motor exam: no movement abnormalities noted <MD Titus Garcia Last Filed: 06/11/24 00:29> Psych: Appearance: grossly normal <MD Titus Garcia Last Filed: 06/11/24 00:29> Attitude: engaged <MD Titus Garcia Last Filed: 06/11/24 00:29> Activity/motor behavior: appropriate eye contact <MD Titus Garcia Last Filed: 06/11/24 00:29> Insight: insight good <Deidra Conroy MD - Last Filed: 06/11/24:29> Judgement: judgment good <Deidra Conroy MD - Last Filed: 06/11/24 00:29> Skin: Common normals: no rashes or lesions noted <Deidra Conroy MD - Last Filed: 06/11/24 00:29> General skin exam: no rashes or lesions noted <Deidra Conroy MD - Last Filed: 06/11/24 00:29> Course Course ED Course: 63-year-old female with history of COPD presenting with what seems to be a COPD exacerbation. Cannot exclude, influenza, pneumonia, possibly cardiac process, multiple other etiologies. O2 sats are low and she is quite tachypneic. Will immediately started DuoNeb, give 60 mg of IV Solu-Medrol. Losses start azithromycin for COPD flare. Once she clinically improves, will send down for chest x-ray. Typical blood work for CBC, basic metabolic panel, CRP and influenza swabs. I do not think that we need to do further cardiac workup unless she fails to improve as expected with the initial interventions. Will likely be able to be managed at home if she improves clinically. Will need refills of inhalers, supplies, steroids and azithromycin. <Deidra Conroy MD - Last Filed: 06/11/24 00:29> Reevaluation(s) Time of Reevaluation #1: 08:04 <Deidra Conroy MD - Last Filed: 06/11/24 00:29> Reevaluation #1: Patient feeling quite a bit better after DuoNeb and steroid. Counseled on lab findings and my preliminary x-ray report. Awaiting final x-ray interpretation but anticipate that she will be able to go home. She assures me that she does have a nebulizer machine, nebulizer mask and tubing but she does not have any more DuoNeb solution and she just ran out of albuterol inhaler. We discussed indications for use of each. Will place her on prednisone 20 b.i.d. and azithromycin typical Z-Juna José style dosing. Refills will be sent pharmacy. Alarm symptoms reviewed that would warrant ED presentation, failure to improve, hemoptysis, severe shortness of breath etc.. Patient verbalizes understanding and agreement. <Deidra Conroy MD - Last Filed: 06/11/24 00:29> Time of Reevaluation #2: 08:28 <Elliot Lake MD - Last Filed: 06/10/24 10:53> Reevaluation #2: Sign-out accepted at change of shift to follow up on labs in patient condition. Chest x-ray independently interpreted by me negative for acute findings, radiology interpretation agrees. Labs independently interpreted by me with normal white blood cell count, basic panel reassuring. Respiratory panel is pending. Patient rechecked, states she is feeling better but still tachypneic with expiratory wheezes and increased work of breathing. Additional nebulizer treatments ordered. Patient is agreeable to discharge but will try to get her feeling little bit better first. <Elliot Lake MD - Last Filed: 06/10/24 10:53> Vital Signs Vital signs: Initial Vital Signs Temperature 97.9 F 06/10/24 07:06 Temperature Source Temporal Artery Scan 06/10/24 07:06 Pulse Rate 103 H 06/10/24 07:06 Respiratory Rate 26 H 06/10/24 07:06 Blood Pressure 185/121 H 06/10/24 07:06 Blood Pressure Mean 142 H 06/10/24 07:06 Blood Pressure Position Sitting 06/10/24 07:06 Pulse Oximetry 90 06/10/24 07:06 Oxygen Delivery Method Room Air 06/10/24 07:06 Vital Signs Temperature 97.9 F 06/10/24 07:06 Pulse Rate 103 H 06/10/24 07:06 Respiratory Rate 26 H 06/10/24 07:06 Blood Pressure 185/121 H 06/10/24 07:06 Pulse Oximetry 90 06/10/24 07:06 Oxygen Delivery Method Room Air 06/10/24 07:06 Temperature 97.9 F 06/10/24 07:06 Pulse Rate 103 H 06/10/24 07:06 Respiratory Rate 26 H 06/10/24 07:06 Blood Pressure 137/98 H 06/10/24 08:20 Pulse Oximetry 90 06/10/24 07:06 Oxygen Delivery Method Room Air 06/10/24 07:06 <Deidra Conroy MD - Last Filed: 06/11/24 00:29> Initial Vital Signs Temperature 97.9 F 06/10/24 07:06 Temperature Source Temporal Artery Scan 06/10/24 07:06 Pulse Rate 103 H 06/10/24 07:06 Respiratory Rate 26 H 06/10/24 07:06 Blood Pressure 185/121 H 06/10/24 07:06 Blood Pressure Mean 142 H 06/10/24 07:06 Blood Pressure Position Sitting 06/10/24 07:06 Pulse Oximetry 90 06/10/24 07:06 Oxygen Delivery Method Room Air 06/10/24 07:06 Vital Signs Temperature 97.9 F 06/10/24 07:06 Pulse Rate 103 H 06/10/24 07:06 Respiratory Rate 26 H 06/10/24 07:06 Blood Pressure 185/121 H 06/10/24 07:06 Pulse Oximetry 90 06/10/24 07:06 Oxygen Delivery Method Room Air 06/10/24 07:06 Temperature 97.9 F 06/10/24 07:06 Pulse Rate 103 H 06/10/24 07:06 Respiratory Rate 26 H 06/10/24 07:06 Blood Pressure 137/98 H 06/10/24 08:20 Pulse Oximetry 90 06/10/24 07:06 Oxygen Delivery Method Room Air 06/10/24 07:06 <Elliot Lake MD - Last Filed: 06/10/24 10:53> Medications Administered Medications: Discontinued Medications Generic Name Dose Route Start Last Admin Trade Name Castilloq PRN Reason Stop Dose Admin Albuterol 5 mg 06/10/24 08:31 06/10/24 08:36 Albuterol Sulfate 2.5 Mg/3 Ml Vial.Neb NEB 06/10/24 08:32 5 mg ONCE ONE Administration Albuterol/Ipratropium 1 neb 06/10/24 07:17 06/10/24 07:35 Iprat-Albut 0.5-2.5 Mg/3 Ml Neb 06/10/24 07:18 1 neb ONCE ONE Administration Azithromycin 500 mg 06/10/24 07:17 06/10/24 07:33 Azithromycin 250 Mg Tablet PO 06/10/24 07:18 500 mg ONCE ONE Administration Methylprednisolone Sodium Succinate 60 mg 06/10/24 07:17 06/10/24 07:36 Methylprednisolone Sod Succ 40 Mg/Ml IVP 06/10/24 07:18 60 mg ONCE ONE Administration <Deidra Conroy MD - Last Filed: 06/11/24 00:29> Discontinued Medications Generic Name Dose Route Start Last Admin Trade Name Shayla PRN Reason Stop Dose Admin Albuterol 5 mg 06/10/24 08:31 06/10/24 08:36 Albuterol Sulfate 2.5 Mg/3 Ml Vial.Neb NEB 06/10/24 08:32 5 mg ONCE ONE Administration Albuterol/Ipratropium 1 neb 06/10/24 07:17 06/10/24 07:35 Iprat-Albut 0.5-2.5 Mg/3 Ml Neb IH 06/10/24 07:18 1 neb ONCE ONE Administration Azithromycin 500 mg 06/10/24 07:17 06/10/24 07:33 Azithromycin 250 Mg Tablet PO 06/10/24 07:18 500 mg ONCE ONE Administration Methylprednisolone Sodium Succinate 60 mg 06/10/24 07:17 06/10/24 07:36 Methylprednisolone Sod Succ 40 Mg/Ml IVP 06/10/24 07:18 60 mg ONCE ONE Administration <Elliot Lake MD - Last Filed: 06/10/24 10:53> Medical Decision Making Lab Data Lab results reviewed: Yes I reviewed the patient's lab results <Deidra Conroy MD - Last Filed: 06/11/24 00:29> Lab results narrative: No significant leukocytosis, hemoglobin is stable. <Deidra Conroy MD - Last Filed: 06/11/24 00:29> Labs: Lab Results 06/10/24 06/10/24 Range/Units 07:35 07:38 WBC 7.44 (4.50-11.00) K/uL RBC 3.88 L (4.00-5.20) m/uL Hgb 12.0 (12.0-16.0) gm/dL Hct 38.4 (33.0-51.0) % MCV 99 (80-100) fL MCH 31 (26-34) pg MCHC 31 L (32-36) gm/dL RDW Coeff of N[place]um 14.8 (11.5-15.5) % Plt Count 266 (140-440) K/uL Neut % (Auto) 54.3 (42.0-72.0) % Lymph % (Auto) 31.5 (20-44) % [place] % (Auto) 7.9 (0.0-11.0) % Eos % (Auto) 5.8 (0.0-7.0) % Baso % (Auto) 0.4 (0.0-3.0) % Neut # (Auto) 4.04 (1.7-7.0) K/uL Lymph # (Auto) 2.34 (0.90-2.90) K/uL [place] # (Auto) 0.60 (0.00-0.90) K/UL Eos # (Auto) 0.43 (0.00-0.50) K/uL Baso # (Auto) 0.03 (0.00-0.30) K/uL Abs Immat Gran (auto) 0.01 (0.00-0.30) K/uL Imm/Tot Granulo (auto) 0.1 % Sodium 141 (135-149) mmol/L Potassium 3.9 (3.6-5.1) mmol/L Chloride 106 (96-114) mmol/L Carbon Dioxide 30 (20-32) mmol/L Anion Gap 5 L (7-15) mEq/L BUN 14 (7-30) mg/dL Creatinine 0.5 (0.5-1.5) mg/dL Estimated Creat Clear 53.21 Estimated GFR 105 ml/min Glucose 128 H (60-115) mg/dL Calcium 9.7 (8.4-10.6) mg/dL C-Reactive Protein 0.5 (0.5-1.0) mg/dL SARS-CoV-2 (PCR) Negative SARS-CoV-2 (Negative) Influenza Type A (PCR) Negative PCR FLU A (Negative) Influenza Type B (PCR) Negative PCR FLU B (Negative) RSV (PCR) Negative PCR RSV (Negative) <Deidra Conroy MD - Last Filed: 06/11/24 00:29> Lab Results 06/10/24 06/10/24 Range/Units 07:35 07:38 WBC 7.44 (4.50-11.00) K/uL RBC 3.88 L (4.00-5.20) m/uL Hgb 12.0 (12.0-16.0) gm/dL Hct 38.4 (33.0-51.0) % MCV 99 (80-100) fL MCH 31 (26-34) pg MCHC 31 L (32-36) gm/dL RDW Coeff of [place] 14.8 (11.5-15.5) % Plt Count 266 (140-440) K/uL Neut % (Auto) 54.3 (42.0-72.0) % Lymph % (Auto) 31.5 (20-44) % [place] % (Auto) 7.9 (0.0-11.0) % Eos % (Auto) 5.8 (0.0-7.0) % Baso % (Auto) 0.4 (0.0-3.0) % Neut # (Auto) 4.04 (1.7-7.0) K/uL Lymph # (Auto) 2.34 (0.90-2.90) K/uL [place] # (Auto) 0.60 (0.00-0.90) K/UL Eos # (Auto) 0.43 (0.00-0.50) K/uL Baso # (Auto) 0.03 (0.00-0.30) K/uL Abs Immat Gran (auto) 0.01 (0.00-0.30) K/uL Imm/Tot Granulo (auto) 0.1 % Sodium 141 (135-149) mmol/L Potassium 3.9 (3.6-5.1) mmol/L Chloride 106 (96-114) mmol/L Carbon Dioxide 30 (20-32) mmol/L Anion Gap 5 L (7-15) mEq/L BUN 14 (7-30) mg/dL Creatinine 0.5 (0.5-1.5) mg/dL Estimated Creat Clear 53.21 Estimated GFR 105 ml/min Glucose 128 H (60-115) mg/dL Calcium 9.7 (8.4-10.6) mg/dL C-Reactive Protein 0.5 (0.5-1.0) mg/dL SARS-CoV-2 (PCR) Negative SARS-CoV-2 (Negative) Influenza Type A (PCR) Negative PCR FLU A (Negative) Influenza Type B (PCR) Negative PCR FLU B (Negative) RSV (PCR) Negative PCR RSV (Negative) <Elliot Lake MD - Last Filed: 06/10/24 10:53> Imaging Data Chest x-ray: Attestation: I have reviewed the pertinent imaging results. <Deidra Conroy MD - Last Filed: 06/11/24 00:29> My impression: Hilar consolidation similar to flare in February but less severe. Certainly no pleural effusions, signs of pulmonary edema or pneumothorax. <Deidra oCnroy MD - Last Filed: 06/11/24 00:29> Discharge Plan Discharge Clinical Impression: Acute exacerbation of chronic obstructive pulmonary disease <Deidra Conroy MD - Last Filed: 06/11/24 00:29> Patient Disposition: Home w/ Parent or Adult <Deidra Conroy MD - Last Filed: 06/11/24 00:29> Condition: Improved <Deidra Conroy MD - Last Filed: 06/11/24 00:29> Instructions: COPD (Chronic Obstructive Pulmonary Disease) (ED) <Deidra Conroy MD - Last Filed: 06/11/24 00:29> Additional Instructions: As we discussed, it seems like a flare-up of COPD today. I am glad that you came in when you did as things were looking pretty rough. I have sent prescriptions to her pharmacy. We did give you your 1st dose of prednisone and azithromycin here in the emergency department. You will continue taking the prednisone 2 times daily. I recommend that you take this 1st thing in the morning and then another dose at about 4:00 p.m.. If you take this too late at night, it can cause insomnia. If your a bit of a night owl, you may push it back a few hours but it is best to not take it within 4 hours of going to bed. Try to take it with food or it may upset your stomach. You will be due for another dose early this evening so make sure you fern picker the medicine right away today. As for the antibiotic, azithromycin, this will just be taken once daily and you have already had your dose for today. Your next dose will be tomorrow morning. This is for 5 days just like the prednisone. You take 2 pills tomorrow, then 1 tablet daily until those are done. I have refilled your albuterol inhaler and have also recommended that you use it with a spacer. This helps it penetrate deeper into the lungs. I have sent supplies of DuoNeb to your pharmacy. You may use that up to every 6 hours. If you still need albuterol in between, use just a plain albuterol neb or your inhaler. The additional medicine in the DuoNeb besides albuterol may cause more jittery Cassia but help to clear out the mucus better. It really should not be taken more often than every 6 hours though. Thing should start improving within the next couple of days. It will take about 10 days for things to resolve completely. If you start running very high fevers, are struggling more to breathe or have any signs of significant worsening, please come back to the ER right away. <Deidra Conroy MD - Last Filed: 06/11/24 00:29> Activity Level: No Restrictions <Deidra Conroy MD - Last Filed: 06/11/24 00:29> No Restrictions <Elliot Lake MD - Last Filed: 06/10/24 10:53> Discharge Diet: Regular <Deidra Conroy MD - Last Filed: 06/11/24 00:29> Regular <Elliot Lake MD - Last Filed: 06/10/24 10:53> Prescriptions: New prednisone 20 mg tablet 20 mg PO BID Qty: 10 0RF azithromycin 250 mg tablet See Rx Instructions .ROUTE .COMPLEX Qty: 6 0RF Rx Instructions: For 250 mg dose pack: take 500 mg today (day 1), then 250 mg for 4 days (days 2-5) ipratropium-albuterol 0.5 mg-3 mg(2.5 mg base)/3 mL solution for nebulization 3 ml inhalation Q6H PRN (Reason: shortness of breath or wheezing) Qty: 180 6RF albuterol sulfate 90 mcg/actuation aerosol powdr breath activated 2 inh inhalation Q2H PRN (Reason: dyspnea) Qty: 2 8RF (DME) BreatheRite MDI Spacer Spacer See Rx Instructions .Route Qty: 1 1RF Rx Instructions: As directed No Action budesonide-formoterol [Symbicort] 160-4.5 mcg/actuation HFA aerosol inhaler 1 inh inhalation BID ipratropium-albuterol [DuoNeb] inhalation lisinopril 20 mg tablet 20 mg PO DAILY gabapentin 300 mg capsule 300 mg PO TID metformin 500 mg tablet 1,000 mg PO DAILY amlodipine 10 mg tablet 10 mg PO DAILY atorvastatin 40 mg tablet 40 mg PO DAILY varenicline 0.5 mg (11)- 1 mg (42) tablets,dose pack 1 ea PO DIRECTED ipratropium-albuterol 0.5 mg-3 mg(2.5 mg base)/3 mL solution for nebulization 3 ml INHALATION QID <Deidra Conroy MD - Last Filed: 06/11/24 00:29> Follow Up/Referrals: Provider,Not a Local [Non-Staff] - <Deidra Conroy MD - Last Filed: 06/11/24 00:29> Stand Alone Forms: MyHealth Info Instructions <Deidra Conroy MD - Last Filed: 06/11/24 00:29>
[2024-06-10] MEDS: AZITHROMYCIN 250 MG TABLET 500 MG PO (07:33)
[2024-06-10] MEDS: IPRAT-ALBUT 0.5-2.5 MG/3 ML NEB 1 NEB IH (07:35)
[2024-06-10] MEDS: METHYLPREDNISOLONE SOD SUCC 40 MG/ML 60 MG IVP (07:36)
[2024-06-10 07:46] LABS: Basophils Absolute Auto 0.03 K/uL (0.00-0.30); Basophils Percent Auto 0.4 % (0.0-3.0); Eosinophils Absolute Auto 0.43 K/uL (0.00-0.50); Eosinophils Percent Auto 5.8 % (0.0-7.0); Hematocrit 38.4 % (33.0-51.0); Immature Granulocytes Abs Auto 0.01 K/uL (0.00-0.30); Immature Granulocytes Pct Auto 0.1 %; Lymphocytes Absolute Auto 2.34 K/uL (0.90-2.90); Lymphocytes Percent Auto 31.5 % (20-44); Mean Corpuscular HGB Conc 31 gm/dL (32-36); Mean Corpuscular Hemoglobin 31 pg (26-34); Mean Corpuscular Volume 99 fL (80-100); Monocytes Percent Auto 7.9 % (0.0-11.0); Neutrophils Absolute Auto 4.04 K/uL (1.7-7.0); Neutrophils Percent Auto 54.3 % (42.0-72.0); Platelet Count* 266 K/uL (140-440); RDW Coefficient of Variation % 14.8 % (11.5-15.5); Red Blood Count 3.88 m/uL (4.00-5.20); White Blood Count* 7.44 K/uL (4.50-11.00)
[2024-06-10 07:47] LABS: Slide Review Reflex No
[2024-06-10 08:00] LABS: Chloride* 106 mmol/L (96-114); Potassium* 3.9 mmol/L (3.6-5.1); Sodium* 141 mmol/L (135-149)
[2024-06-10 08:03] LABS: Anion Gap 5 mEq/L (7-15); Blood Urea Nitrogen* 14 mg/dL (7-30); Carbon Dioxide* 30 mmol/L (20-32); Creatinine* 0.5 mg/dL (0.5-1.5); Est. Creatinine Clearance* 53.21; Estimated Glomerular Filt Rate 105 ml/min
[2024-06-10 08:04] LABS: Calcium* 9.7 mg/dL (8.4-10.6); Glucose* 128 mg/dL (60-115)
[2024-06-10 08:06] LABS: C Reactive Protein* 0.5 mg/dL (0.5-1.0)
--- OUTSIDE RECORDS SUMMARY | 2024-06-10 08:06 | XMS_ITS | Encounter Summary ---
Author Organization [facility] [employer] Address [address], [place] [address] Care Team Providers Care Rn Medical Inpatient Services Name Role Phone Gopal Varghese DO Primary Care Provider [phone] Reason for Visit * Reason Comments Forms [employer] [place]- [facility] NECESSARY EQUIPMENT AND EMERGENCY CERTIFICATION FORM Encounter Details Date Type Department Care Team (Late st Contact Info) Description 01/10/2024 Telephone [facility] [address] [facility]. [place], [place] [id number] Gopal Varghese DO [address] [place], [place] [id number] Forms ([employer]- MEDICAL NECESSARY EQUIPMENT AND EMERGENCY CERTIFICATION FORM) [...] at clinic Return to: Patient Return method: emotional support teacher (daytime phone #) [phone] If other than the patient, who may fruit or nut picker this form? na Additional comments (related to the above concern): Preferred communication method: Phone Call. Is it okay to leave a detailed message on your voicemail? Yes documented in this encounter Plan of Treatment Not on file documented as of this encounter Visit Diagnoses Not on filedocumented in this encounter Care Teams Rn Medical Inpatient Services Relationship Specialty Start Date End Date Gopal Varghese DO [address] [place] [address] PCP - General Family Practice 05/29/19 documented as of this encounter
--- OUTSIDE RECORDS SUMMARY | 2024-06-10 08:06 | XMS_ITS | Encounter Summary ---
Author Organization [facility] Address [address], [place] [address] Care Team Providers Care [employer] Name Role Phone Gopal Varghese DO Primary Care Provider [phone] Encounter Details Date Type Department Care Team (Late st Contact Info) Description 04/17/2024 Notes/Orders Centralized Outreach [address] [place] [id number] Gopal Varghese DO [address] [place], [place] [id number] Type 2 diabetes mellitus without complication, without long-term current use of insulin ([facility]) Social History Tobacco Use Types Packs/Day Years [...] as of this encounter Plan of Treatment Scheduled Orders Name Type Priority Associated Diagnoses Orde r Schedule Albumin/Creatinine Ratio,Random Urine Lab Routine Type 2 diabetes mellitus without complication, without long-term current use of insulin ([facility]) Expected: 04/17/2024, Expires: 10/16/2024 documented as of this encounter Visit Diagnoses Diagnosis Type 2 diabetes mellitus without complication, without long-term current use of insulin ([facility]) documented in this encounter Care Teams [employer] Relationship Specialty Start Date End Date Gopal Varghese DO [address] [place] [address] PCP - General Family Practice 05/29/19 documented as of this encounter
--- OUTSIDE RECORDS SUMMARY | 2024-06-10 08:06 | XMS_ITS | Clinical Summary ---
Author Organization [employer] Address [address], [place] [address] Care Team Providers Care Soccer Commentator Name Role Phone Gopal Varghese Primary Care Provider [phone]- [phone] Source Comments You are receiving this document as you are listed as the primary care provider,follow-up provider, or the patient has been referred to you for consultation.This is in compliance with the Medicare and[facility] EHR Incentive Program,which states Providers who transition their patient to another setting of careor provider of care or refers their patient to another provider of care shouldprovide summary care record for each transition of care or referral. [employer] Allergies Active Allergy Reactions Criticality Noted Date [...] hydrOXYzine HCl (ATARAX) 25 MG tabletIndications:An xiety ([facility]) Take 1 Tablet (25 mg) by mouth two times daily as needed for Anxiety. 30 Tablet 1 11/13/2022 Active amLODIPine (NORVASC) 10 MG tabletIndications:Hy pertension TAKE 1 TABLET(10 MG) BY MOUTH DAILY 90 Tablet 3 02/12/2023 Active sertraline (ZOLOFT) 100 MG tabletIndications:Ma ulis Depressive Disorder Take 1.5 Tablets (150 mg) [...] tage 2 moderate COPD by GOLD classification ([facility]) Inhale 1 Puff daily. 1 Each 11 08/19/2023 Active gabapentin (NEURONTIN) 300 MG capsuleIndications:M enopausal syndrome (hot flashes) TAKE 1 CAPSULE(300 MG) BY MOUTH THREE TIMES DAILY 270 Capsule 1 11/24/2023 Active metFORMIN XR (GLUCOPHAGE XR) 500 MG 24 hour release tabletIndications:Ty pe 2 diabetes mellitus without complication, without long-term current use of insulin ([facility]) Take 4 Tablets (2,000 mg) by mouth [...] 01/11/2024 Active predniSONE (DELTASONE) 10 MG tabletIndications:[place] Exacerbation of COPD (Inactive) Take 40 mg [...] from the original. [facility] DCM Care Management aZhira Fernandez Was identified for case management services due to her recent hospitalization for a thoracotomy and lymph node dissection. She verbalized she was not interested in engagement so case will be closed as not managed however it can be reopened at any time if the member or provider are interested in case management support or resources. Emerita Yanez RN 12/23/2021, 5:25 PM [phone] This is an FYI only. No action from the clinic is required. Zahira Fernandez was enrolled with Disease and Case Management and the case has been closed because patient stopped responding. If questions or concerns please contact me at [phone] 07/09/2021 6:31 PM Problem Noted Date Diagnosed [...] admission for COPD exacerbation - Pulmonology at [facility] 11/2021 - Lobectomy Dr. Ortega - [facility] Status post total left knee replacement 11/20/19 [...] 04/15/2022 Fatigue 07/28/2012 04/15/2022 Generalized muscle ache 07/28/2012 100 11/2021 Nausea 07/28/2012 04/15/2022 Need for prophylactic hormon e replacement therapy (postmenopausal) 07/28/2012 04/15/2022 Nicotine dependence 07/28/2012 04/15/20 22 Persons encountering health services in other specified circumstances 07/28/2012 04/15/2022 Overview (10/15/2021): Tier 2 DX V65.8 REPLACED WITH [facility] (10/17/2012) Prediabetes 07/28/2012 12/09/2022 Sprain and strain of shoulder and upper arm 07/28/2012 04/15/2022 Overview (10/15/2021): Problem list name updated by automated process. Provider to review UTI (urinary tract infection) 07/28/2012 04/15/2022 Overview (10/15/2021): Problem list name updated by automated process. Provider to review Artificial menopause 04/14/2006 021 Encounters Date Type Department Care Team Description 04/17/2024 Notes/Orders Centralized Outreach [address] [place] [address] [address] Gopal Varghese, Type 2 diabetes mellitus without complication, without long-term current use of insulin (HRC) 03/14/2024 Notes/Orders Centralized Outreach [address] [place] [address] [phone] Gopal Varghese, Type 2 diabetes mellitus without complication, without long-term current use of insulin (HRC) from Last 3 Months Immunizations Name Administration Dates Next Due Flu Vac (3+ yrs) 03/15/2013, 2,03/25/2011,2008,09/10/2007,05/26/2007 Flu Vac Preserv Free (3+yrs) 03/25/2011 HepB Adult (Heplisav-B, 19+ yrs, 2 dose series) 06/01/2022 Influenza (Flucelvax), Prese rv Free QIV 07/16/2023 Influenza IIV4 (Quadrivalent ) 0.5mL (38309) 04/26/2022,04/21/2021,03/20/2019,2016,06/11/2016,07/20/2014 Influenza, Unspecified Formulation 06/11/2016, Moderna Monovalent 12+ 12/06/2020,11/01/2020 PCV20 (Mrshvgb28) 06/01/2022 PPSV23 (Pneumovax) 03/15/2013 Td 07/12/2005,09/17/2004 Tdap [...] 95 01/21/2024 2:45 PM CDT Temperature 36.2 C (97.1 F) 01/21/2024 2:45 PM CDT Respiratory Rate 22 08/12/2023 5:43 PM ENTRY LEVEL PROGRAMMER Oxygen Saturation 95% 01/21/2024 2:45 PM CDT Inhaled Oxygen Concentration - - Weight 72.6 kg (160 lb) 01/21/2024 2:45 PM CDT Height 165.1 cm (5' 5) 01/21/2024 2:45 PM CDT Body Mass Index 26.63 01/21/2024 2:45 PM CDT Plan of Treatment Health Maintenance Due Date Last Done Comments MTM Targeted 1959 RSV (1 - Risk 60-74 years 1-dose series) 2019 Diabetes: Eye Exam 12/06/2021 12/06/2020, 0 12/06/2020, 06/19/2020, Additional history exists HepB (2) 06/29/2022 06/01/2022 Zoster/Shingles (2 of 2) 07/27/2022 06/01/2022 Colonoscopy 11/21/2022 11/21/2020, 07/13, 01/17/2009, Additional history exists Adult Preventive Visit 06/01/2023 , 06/16/2019, 05/19/2006 Mammogram 08/13/2023 08/13/2022, 07/13, 08/22/2020, Additional history exists Diabetes: HGBA1C 10/15/2023 07/16/2023, , 05/11/2023, Additional history exists COVID-19 Vaccine ( season) 2024 12/06/2020, 11/01/2020 Influenza (#1) 2024 07/16/2023, 04/11, 04/21/2021, Additional history exists Diabetes: Creatinine 07/11/2024 07/11/2023, 07/10/2023, 07/09/2023, Additional history exists Diabetes: Foot Exam 07/16/2024 07/16/2023, 2 Diabetes: Urine Microalbumin 07/16/2024 07/16/2023, 06/01/2022 Diabetes: Lipid Panel 06/01/2027 06/01/2022 , 11/21/2021, 06/29/2019 DTaP/Tdap/Td (3 - Tdap) 06/01/2032 06/01/20 22, 04/05/2012, 07/12/2005, Additional history exists Hep C Screening (Preventive Services) Completed 06/29/2019 HIV Screening (Preventive Services) Completed 10/29/2021, 06/29/2019 Cholesterol Discontinued 06/01/2022, 0509/2021, 05/14/2021, Additional history exists Pneumococcal Completed 06/01/2022, 03/15/2013 HepA Aged Out No longer eligi ble based on patient's age to complete this topic Hib Aged Out No longer eligi ble based on patient's age to complete this topic IPV (Polio) Aged Out No longer eligi ble based on patient's age to complete this topic RSV Aged Out No longer eligi ble based on patient's age to complete this topic MCV4 Aged Out No longer eligi ble based on patient's age to complete this topic Procedures Procedure Name Priority Date/Time Associated Diagnosis Comments ALBUMIN/CREAT RATIO Routine 07/16/2023 9 :29 AM ENTRY LEVEL PROGRAMMER Type 2 diabetes mellitus without complication, without long-term current use of insulin (HRC) HGB A1C Routine 07/16/2023 9:27 AM ENTRY LEVEL PROGRAMMER Type 2 diabetes mellitus without complication, without long-term current use of insulin (HRC) BASIC METABOLIC PANEL Routine 07/11/2023 7:40 AM ENTRY LEVEL PROGRAMMER MM MAMMOGRAM DIAG BILAT W 3D LIAM Routine 08/13/2022 1:58 PM ENTRY LEVEL PROGRAMMER Breast pain, right Mass of right breast, unspecified quadrant LIPID PANEL & DIRECT LDL (IF NEEDED) Routine 06/01/2022 12:59 PM ENTRY LEVEL PROGRAMMER Routine health maintenance Hyperlipidemia, unspecified hyperlipidemia type COLONOSCOPY Routine 11/21/2020 9:30 AM CDT Screen for colon cancer HIV 1/2 AG/AB 4TH GEN Routine 06/29/2019 8:40 AM ENTRY LEVEL PROGRAMMER Routine health maintenance Screening for HIV (human immunodeficiency virus) HEPATITIS C ANTIBODY, WITH REFLEX Routine 06/29/2019 8:40 AM ENTRY LEVEL PROGRAMMER Routine health maintenance Need for hepatitis C screening test from Last 3 Months or Most Recently Relevant to Health Maintenance Results * (ABNORMAL) Albumin/Creatinine Ratio,Random Urine (07/16/2023 9:29 AM ENTRY LEVEL PROGRAMMER) Albumin/Creati nine Ratio, Urine, Random 254(H) <30 mg/g 07/16/2023 11:[address] [facility] Albumin, Urine, Random 241.5 mg/L 07/16/2023 11:[address] [facility] Creatinine, Urine, Random 95 >20 mg/dL mg/dL 07/16/2023 11:[address] [facility] Urine Non-blood Collection / Unknown 07/16/2023 9:29 AM ENTRY LEVEL PROGRAMMER 07/16/2023 9:29 AM [facility] Gopal Varghese DO LAB_1 Performing Organization Address City/[facility] Co de Phone Number [facility] [address] [phone] * (ABNORMAL) Hgb A1C (07/16/2023 9:27 AM ENTRY LEVEL PROGRAMMER) Hemoglobin A1C 7.6(H) <=5.6 % 07/16/2023 1:[address] [facility] Estimated Average Glucose (Calc) 171 < 117 mg/dL 07/16/2023 1:[address] [facility] Comment:Estimated average gl ucose (eAG) converts A1c into glucose units (mg/dL) and estimates average glucose over the past approximately 3 months. The eAG reference interval (<117 mg/dL) corresponds to an A1c of <5.7%. Blood Venipuncture / Unknown 07/16/2023 9:27 AM ENTRY LEVEL PROGRAMMER 07/16/2023 9:27 AM [facility] Narrative [facility] - 07/16/2023 1:02 PM ENTRY LEVEL PROGRAMMER For patients not previously diagnosed with diabetes: 5.7-6.4%: Increased risk for diabetes 6.5% and greater: Diagnostic for diabetes For patients diagnosed with diabetes: <8.0%: Goal of therapy for ages 18-75 Clinicians may recommend a higher or lower goal for specific individuals. Gopal Varghese DO LAB_1 [facility] [address] [place] [address], [facility] [phone] * (ABNORMAL) Basic Metabolic Panel (07/11/2023 7:40 AM ENTRY LEVEL PROGRAMMER) Sodium 140 136 - 145 mmol/L 07/11/2023 8:22 AM [facility] Potassium 3.9 3.5 - 5.1 mmol/L 07/11/2023 8:22 AM [facility] Chloride 106 98 - 109 mmol/L 07/11/2023 8:22 AM [facility] CO2 25 20 - 29 mmol/L 07/11/2023 8:22 AM [facility] Anion Gap 9 7 - 16 mmol/L 07/11/2023 8:22 AM [facility] Calcium 9.1 8.4 - 10.4 mg/dL 07/11/2023 8:22 AM [facility] BUN 9 7 - 26 mg/dL 07/11/2023 8:22 AM [facility] Creatinine 0.64 0.55 - 1.02 mg/dL 07/11/2023 8:22 AM [facility] Glucose 116(H) 70 - 100 mg/dL 07/11/2023 8:22 AM [facility] Comment:The given reference range is for the fasting state. Non-fasting reference range for glucose is 70 - 180 mg/dL. GFR, Estimated >60 >60 mL/min/1.7 3m2 07/11/2023 8:22 AM [facility] Blood Venipuncture / Unknown 07/11/2023 7:40 AM ENTRY LEVEL PROGRAMMER 07/11/2023 7:46 AM ENTRY LEVEL PROGRAMMER Nba Herrera MD LAB_1 [place] [address], [facility] [phone] * MM Mammogram Diag Bilat W 3D Liam (08/13/2022 1:58 PM ENTRY LEVEL PROGRAMMER) Anatomical Region Laterality Modality Breast Bilateral Mammography 08/13/2022 1:58 PM ENTRY LEVEL PROGRAMMER Narrative 08/13/2022 2:37 PM ENTRY LEVEL PROGRAMMER EXAM: MM MAMMOGRAM DIAG BILAT W 3D LIAM, MM US BREAST RT LOCATION: [facility] DATE/TIME: 08/13/2022 1:58 PM INDICATION: 61-year-old [...] of the area of patient's pain, with technical support representative images obtained at 1:00 8 cm [...] 3D LIAM, MM US BREAST RT LOCATION: [facility] DATE/TIME: 08/13/2022 1:58 PM INDICATION: 61-year-old [...] Ultrasound of the area of patient'aquilino, with technical support representative images obtained at 1:00 8 cm [...] and Direct LDL(If Needed) (06/01/2022 12:59 PM ENTRY LEVEL PROGRAMMER) Cholesterol 158 0 - 199 mg/dL 06/01/2022 5:37 PM ENTRY LEVEL PROGRAMMER [facility] Triglyceride 78 <=149 mg/dL 06/01/2022 5:37 PM ENTRY LEVEL PROGRAMMER [facility] HDL Cholesterol 53 >=40 mg/dL 06/01/2022 5:37 PM ENTRY LEVEL PROGRAMMER [facility] LDL, Calculated 89 <130 mg/dL 06/01/2022 5:37 PM ENTRY LEVEL PROGRAMMER [facility] Non HDL Chol, Calculated 105 <=159 mg/dL 06/01/2022 5:37 PM ENTRY LEVEL PROGRAMMER [facility] Cholesterol/HDL Ratio 3.0 06/01/2022 5:37 PM ENTRY LEVEL PROGRAMMER [facility] Hours Fasting 1 06/01/2022 5:37 PM ENTRY LEVEL PROGRAMMER [facility] Blood Venipuncture / Unknown 06/01/2022 12:59 PM ENTRY LEVEL PROGRAMMER 06/01/2022 12:59 PM ENTRY LEVEL PROGRAMMER Gopal Varghese DO LAB_1 [facility] [address] [address] [phone] [facility] [address] [place] [address] [phone] * Colonoscopy (ProVation order) (11/21/2020 9:30 AM CDT) 11/21/2020 9:30 AM CDT Narrative GI (PROVATION) - 11/21/2020 10:18 AM CDT Instrument Name: Maonj Indications: High risk colon cancer surveillance: Personal [...] there are any questions, please contact the telemetry technician. - Repeat colonoscopy in 2 years for surveillance. - Return to referring physician as previously scheduled. - Patient's sedation for a repeat study will require Anesthesia staff assistance. Procedure Code(s): --- Professional --- 69040, 22,PT 70775, 59,PT --- Technical --- [address], [place] [address], 59,PT Diagnosis Code(s): --- Professional --- K63.5 Z12.11 Z86.010 K57.30 --- Technical --- K63.5 Z12.11 Z86.010 K57.30 CPT copyright 2019 [employer]. All rights reserved. The codes documented in this report are preliminary and upon psychology department chair review may be revised to meet current [...] there are any questions, please contact the telemetry technician. - Repeat colonoscopy in 2 years for surveillance. - Return to referring physician as previously scheduled. - Patient's sedation for a repeat study will require Anesthesia staff assistance. Procedure Code(s): --- Professional --- 24693, 22,PT 65856, 59,PT --- Technical --- [address], [place] [address], 59,PT Diagnosis Code(s): --- Professional --- K63.5 Z12.11 Z86.010 K57.30 --- Technical --- K63.5 Z12.11 Z86.010 K57.30 CPT copyright 2019 [employer]. All rights reserved. The codes documented in this report are preliminary and upon psychology department chair review may be revised to meet current compliance requirements. Attending Participation: MD Ruben Rodriguez MD 11/21/2020 10:18:12 AM This report has been signed electronically. Number of Addenda: 0 Note Initiated On: 11/21/2020 9:30 AM Ruben Enriquez MD DIGESTIVE CARE Performing Organization Address City/[facility] Co de Phone Number ([facility]) [place], [place] * HIV 1/2 Ag/Ab 4th Generation (06/29/2019 8:40 AM ENTRY LEVEL PROGRAMMER) HIV 1/2 Antigen/Anti body (4th generation) Negative (Non Reactive) Negative (Non Reactive) 06/29/2019 1:10 PM ENTRY LEVEL PROGRAMMER [facility] Comment:HIV-1 p24 Antigen an d HIV-1/HIV-2 Antibody not detected Blood Venipuncture / Unknown 06/29/2019 8:40 AM ENTRY LEVEL PROGRAMMER 06/29/2019 8:41 AM ENTRY LEVEL PROGRAMMER Gopal Varghese DO LAB_1 [facility] [address] [address], [place] [phone] * HEP C recommended for patients born between 7783-4879 (06/29/2019 8:40 AM ENTRY LEVEL PROGRAMMER) Hepatitis C Antibody Negative (Non Reactive) Negative (Non Reactive) 06/29/2019 1:09 PM ENTRY LEVEL PROGRAMMER [facility] Comment:Antibodies to HCV no t detected. Does not exclude the possiblity of exposure to HCV. Blood Venipuncture / Unknown 06/29/2019 8:40 AM ENTRY LEVEL PROGRAMMER 06/29/2019 8:41 AM ENTRY LEVEL PROGRAMMER Gopal Varghese DO LAB_[address] [facility] [address] [address], [facility] [phone] from Last 3 Months or Most Recently Relevant to Health Maintenance Advance Directives * Full Code (Latest Code Status on File) Date Activated Date Inactivated Comments 07/09/2023 4:27 PM 07/11/2023 4:21 PM Care Teams Soccer Commentator Relationship Specialty Start Date End Date Gopal Varghese DO [address] [place] [address] PCP - General Family Practice 05/29/19
--- OUTSIDE RECORDS SUMMARY | 2024-06-10 08:06 | XMS_ITS | Encounter Summary ---
Author Organization [employer] Address [address], [place] [address] Care Team Providers Care Marketing Business Analyst Name Role Phone Mariluamor Gopal Gimenez DO Primary Care Provider [phone]- [phone] Reason for Visit * Reason Comments Insurance Concerns Financial Encounter Details Date Type Department Care Team (Late st Contact Info) Description 01/19/2024 Telephone [facility] [address] [facility] [place], [place] [id number] Mervat Salmeron, REIMBURSEMENT MANAGER, WOOD TYPE CUTTER [address] [place], [place] [id number] Insurance Concerns; Financial Social History Tobacco Use [...] with pt, pt agreed to meet with commercial underwriter after appt on Wednesday with Dr. Yoder. YUN Mckeon LICSW documented in this encounter Plan of Treatment Not on file documented as of this encounter Visit Diagnoses Not on filedocumented in this encounter Care Teams Marketing Business Analyst Relationship Specialty Start Date End Date Gopal Varghese DO [address] [place] [address] PCP - General Family Practice 05/29/19 documented as of this encounter
--- OUTSIDE RECORDS SUMMARY | 2024-06-10 08:06 | XMS_ITS | Encounter Summary ---
Author Organization [employer] Address [address], [place] [address] Care Team Providers Care Parquetry Floor Layer Name Role Phone Gopal Varghese DO Primary Care Provider [phone]- [phone] Encounter Details Date Type Department Care Team (Late st Contact Info) Description 03/14/2024 Notes/Orders Centralized Outreach [address] [place] [address] [address] Gopal Varghese DO [address] [place], [place] [id number] Type 2 diabetes mellitus without complication, without [...] Type Priority Associated Diagnoses Orde r Schedule Hgb A1C Lab Routine Type 2 diabetes mellitus without complication, without long-term current use of insulin (HRC) Expected: 03/14/2024, Expires: 06/13/2024 documented as of this encounter Visit Diagnoses Diagnosis Type 2 diabetes mellitus without complication, without long-term current use of insulin (HRC) documented in this encounter Care Teams Parquetry Floor Layer Relationship Specialty Start Date End Date Gopal Varghese DO [address] [place] [address] PCP - General Family Practice 05/29/19 documented as of this encounter
--- OUTSIDE RECORDS SUMMARY | 2024-06-10 08:06 | XMS_ITS | Encounter Summary ---
Author Organization [facility] [facility] [employer] Address [address] [place] [address] Care Team Providers Care Appliance Servicer Name Role Phone Gopal Varghese DO Primary Care Provider [phone] Encounter Details Date Type Department Care Team [...] R/O COVID19 07/09/2023 07/09/2023 07/09/2023 4:52 PM FLAT KNITTER HELPER documented as of this encounter Care Teams Appliance Servicer Relationship Specialty Start Date End Date Gopal Varghese DO [address] [place] [address] PCP - General Family Practice 05/29/19 documented as of this encounter
--- OUTSIDE RECORDS SUMMARY | 2024-06-10 08:06 | XMS_ITS | Encounter Summary ---
Author Organization [employer] Address [address] [place] [address] Care Team Providers Care Merchandise Worker Name Role Phone Gopal Varghese DO Primary Care Provider +1 [phone] Encounter Details Date Type Department Care Team [...] R/O COVID19 07/09/2023 07/09/2023 07/09/2023 4:52 PM HIGH SCHOOL COUNSELOR documented as of this encounter Care Teams Merchandise Worker Relationship Specialty Start Date End Date Gopal Varghese DO [address] [place] [address] PCP - General Family Practice 05/29/19 documented as of this encounter
--- OUTSIDE RECORDS SUMMARY | 2024-06-10 08:07 | XMS_ITS | Clinical Summary ---
Author Organization [facility] Address [place], [place] [address] Care Team Providers Care Angle Furnaceman Name Role Phone MariluGopal chinchilla Primary Care Provide r Ainsley Pereyra MD Unavailable Maritza Sykes RN, BSN, OCN Unavailable [phone] Rico Ortega MD Unavailable [phone] Allergies Active Allergy Reactions Criticality Noted Date Comments Bismuth Subsalicylate Anaphylaxis High 01/01/2020 Unclear if it was due to this or ciprofloxacin Ciprofloxacin Anaphylaxis High 01/01/2020 Unclear if it was due to this or BISMUTH SUBSALICYLATE Naproxen GI Upset 06/11/2016 Medications Medication Sig Dispensed Refills Start Date End Date Status aspirin (ECOTRIN) 81 mg enteric coated tablet Take 81 mg by mouth once daily. Active sennosides-docusat e (SENOKOT S) (8.6-50 mg) tabletIndications: Drug-induced constipation Take 1-3 Tablets by mouth 2 times daily if needed for Constipation. 30 Tablet 2 Active acetaminophen (TYLENOL EXTRA STRGTH) 500 mg tablet Take 1,000 mg by mouth every 6 hours if needed for Pain. Max acetaminophen dose: 4000mg in 24 hrs. Active albuterol (PROVENTIL) 0.083 % neb solutionIndication s:COPD exacerbation (HC) Inhale 3 mL (2.5 mg) via a nebulizer three times daily. 300 mL 3 Active nebulizer and compressor ([facility] PulmoNeb LT Comp-Neb)Indicatio ns:COPD with acute exacerbation (HC) For home use. Length of need: 999 days 1 Each 3 Active albuterol HFA (PRO-AIR; VENTOLIN; PROVENTIL) 90 mcg/actuation inhalerIndications :COPD mixed type (HC) Inhale 2 Puffs by mouth every 4 hours if needed for Shortness Of Breath (shortness of breath). 18 g 4 Active NebulizerIndicatio ns:COPD with acute exacerbation (HC) Nebulizer, disposable neb kit x 4, reuseable neb kit x 1, mask x 1, filters x 1. Frequency of use: daily; Medication: duonebs Length of need: 99 months 1 Each 4 Active varenicline (CHANTIX DOSEPAK) 0.5 mg (11)- 1 mg (42) tabletIndications: Tobacco dependence Days 1-3 take 0.5mg once daily; Days 4-7 take 0.5mg twice daily; then increase to 1mg twice daily. Take with meals. 1 Packet 4 Active varenicline (CHANTIX) 1 mg tabletIndications: Tobacco dependence Take 1 mg by mouth two times daily with meals. 112 Tablet 4 Active gabapentin (NEURONTIN) 300 mg capsuleIndications :neuropathic pain Take 1 Capsule (300 mg) by mouth three times daily. 90 Capsule 2 4 06/28/20 24 Active lisinopriL (PRINIVIL; ZESTRIL) 20 mg tabletIndications: hypertension Take 1 Tablet (20 mg) by mouth once daily. Hold for systolic blood pressure <110 90 Tablet 4 Active amLODIPine (NORVASC) 10 mg tabletIndications: hypertension Take 1 Tablet (10 mg) by mouth once daily. 90 Tablet 4 Active atorvastatin (LIPITOR) 40 mg tabletIndications: hypercholesterolem ia Take 1 Tablet (40 mg) by mouth once daily. 90 Tablet 4 Active metFORMIN (GLUCOPHAGE XR) 500 mg Extended-Release tabletIndications: type 2 diabetes mellitus Take 4 Tablets (2,000 mg) by mouth once daily. 360 Tablet 4 06/28/20 24 Active sertraline (ZOLOFT) 100 mg tabletIndications: anxiety with depression Take 1.5 Tablets (150 mg) by mouth once daily. 135 Tablet 4 Active sertraline (ZOLOFT) 100 mg tabletIndications: anxiety with depression Take 100 mg by mouth once daily. 05/29/20 24 Discontinue d(Reorder (E-cancel not sent)) NebulizerIndicatio ns:Bronchospasm Nebulizer, disposable neb kit x 4, reuseable neb kit x 1, mask x 1, filters x 1. Frequency of use: daily; Medication: duoneb Length of need: 1 months 1 Each 1 05/22/20 24 Discontinue d(*Med complete/Re gimen complete/Le jean-pierre of care change) atorvastatin (LIPITOR) 40 mg tabletIndications: hypercholesterolem ia Take 40 mg by mouth once daily. 2 05/29/20 24 Discontinue d(Reorder (E-cancel not sent)) gabapentin (NEURONTIN) 300 mg capsuleIndications :neuropathic pain Take 300 mg by mouth three times daily. 2 05/29/20 24 Discontinue d(Reorder (E-cancel not sent)) NebulizerIndicatio ns:COPD exacerbation (HC) Nebulizer, disposable neb kit x 4, reuseable neb kit x 1, mask x 1, filters x 1. Frequency of use: daily; Medication: DuoNeb. Length of need: 33 months 1 Each 2 05/22/20 24 Discontinue d(*Med complete/Re gimen complete/[place] jean-pierre of care change) oxygen-air delivery systems (HOME OXYGEN)Indications :COPD exacerbation (HC) Oxygen for home use. Liters per minute: 2 per nasal cannula. Frequency of use: Continuous with activity;. Length of need: 33 Months. 1 Each 2 05/29/20 24 Discontinue d(*Patient states no longer taking) lisinopriL (PRINIVIL; ZESTRIL) 20 mg tabletIndications: hypertension Take 1 Tablet (20 mg) by mouth once daily. Hold for systolic blood pressure <110 0 2 05/29/20 24 Discontinue d(Reorder (E-cancel not sent)) amLODIPine (NORVASC) 10 mg tabletIndications: hypertension Take 1 Tablet (10 mg) by mouth once daily. 30 Tablet 2 05/29/20 24 Discontinue d(Reorder (E-cancel not sent)) tiZANidine (ZANAFLEX) 2 mg tabletIndications: Left hip pain Take 1 Tablet (2 mg) by mouth every 8 hours if needed for Muscle Spasm for up to 12 doses. 12 Tablet 2 05/29/20 24 Discontinue d(*Patient states no longer taking) metFORMIN (GLUCOPHAGE XR) 500 mg Extended-Release tabletIndications: type 2 diabetes mellitus Take 2,000 mg by mouth once daily. 05/29/20 24 Discontinue d(Reorder (E-cancel not sent)) albuterol-ipratrop ium (DUONEB) (2.5-0.5 mg) in 3 mL NEBULIZATION solutionIndication s:COPD exacerbation (HC) Inhale 3 mL via a nebulizer 4 times daily if needed for Shortness of Breath 2nd choice. 360 mL 3 05/22/20 24 Discontinue d(*Med complete/Re gimen complete/[place] jean-pierre of care change) fluticasone propion-salmeteroL (Advair Diskus) 100-50 mcg/dose diskus inhaler Inhale 1 Puff by mouth every 12 hours. 05/29/20 24 Discontinue d(*Patient states no longer taking) predniSONE (DELTASONE) 20 mg tabletIndications: COPD with acute exacerbation (HC) Take 1 Tablet (20 mg) by mouth once daily. 5 Tablet 4 05/22/20 24 Discontinue d(*Med complete/Re gimen complete/[place] jean-pierre of care change) budesonide-formote roL (SYMBICORT) 160-4.5 mcg/actuation (160-4.5 mcg each actuation) inhalerIndications :COPD mixed type (HC) Inhale 2 Puffs by mouth two times daily. Inhale 2 puffs twice daily and 1-2 puffs every 4 hours as needed for asthma exacerbations. Max of 8 puffs per day. 1 Each 4 05/29/20 Discontinue d(Reorder (E-cancel not sent)) cyclobenzaprine (FLEXERIL) 10 mg tabletIndications: Acute back pain with radiculopathy Take 1 Tablet (10 mg) by mouth 3 times daily if needed for Muscle Spasm. 30 Tablet 1 4 05/29/20 24 Discontinue d(*Patient states no longer taking) meloxicam 15 mg tabletIndications: Acute back pain with radiculopathy Take 1 Tablet (15 mg) by mouth once daily. 30 Tablet 1 4 05/29/20 24 Discontinue d(*Patient states no longer taking) oxyCODONE (ROXICODONE) 5 mg immediate release tabletIndications: Acute back pain with radiculopathy Take 0.5-1 Tablets (2.5-5 mg) by mouth every 6 hours if needed for Pain (severe pain). No future refills unless seen in clinic. 12 Tablet 4 05/29/20 Discontinue d(*Patient states no longer taking) doxycycline 100 mg tabletIndications: COPD with acute exacerbation (HC) Take 1 Tablet (100 mg) by mouth two times daily for 5 days. 10 Tablet 4 05/27/20 24 predniSONE (DELTASONE) 10 mg tabletIndications: COPD with acute exacerbation (HC) Take 4 Tablets (40 mg) by mouth once daily with a meal for 3 days, THEN 3 Tablets (30 mg) once daily with a meal for 3 days, THEN 2 Tablets (20 mg) once daily with a meal for 3 days, THEN 1 Tablet (10 mg) once daily with a meal for 3 days. 30 Tablet 4 06/03/20 24 albuterol-ipratrop ium (DUONEB) (2.5-0.5 mg) in 3 mL NEBULIZATION solutionIndication s:COPD with acute exacerbation (HC) Inhale 3 mL via a nebulizer 4 times daily. 1080 mL 3 4 05/29/20 24 Discontinue d(*Patient states no longer taking) budesonide-formote roL (SYMBICORT) 160-4.5 mcg/actuation (160-4.5 mcg each actuation) inhalerIndications :COPD mixed type (HC) Inhale 2 Puffs by mouth two times daily. Inhale 2 puffs twice daily and 1-2 puffs every 4 hours as needed for asthma exacerbations. Max of 8 puffs per day. 1 Each 4 05/29/20 24 Discontinue d(*Patient states no longer taking) Active Problems Problem Noted Date Diagnosed Date WILLIAM (acute kidney injury) 10/17/2023 RSV (respiratory syncytial virus infection) 09/2023 Acute hypoxemic respiratory failure 10/13/2023 Acute on chronic respiratory failure with hypoxi a 01/29/2023 Dilated bile duct 09/11/2022 Overview (06/25/2023): 2022 - noted on CT imaging MRCP recommended and order placed 09/2022 - MRCP with stable findings likely reservoir effect from cholecystectomy but could consider ERCP Microscopic hematuria 06/02/2022 Overview (06/25/2023): Seen by Urology in 2019 - longstanding history Anxiety 06/01/2022 Stage I adenocarcinoma of lung, right 04/27/2022 ACP (advance care planning) 12/17/2021 Overview (12/17/2021): Patient has identified Health Care Agent(s): Yes [...] 12/29/2019 Essential hypertension 12/29/2019 Pancreas cyst 10/04/2019 Overview (12/02/2021): On ct ivp 1 2019 rec mri c contrast for fu in 2 ys 2021. 4x 7 mm pos ipmn Allergic rhinitis 10/03/2018 Restless legs syndrome 11/30/2016 Atherosclerosis of aorta 11/30/2016 Overview (11/30/2016): On CT Lung nodule < 6cm on CT 11/30/2016 Diverticulosis of large intestine without hemorr slava 11/30/2016 Status post left total knee arthroplasty done 05/2811/19/2016 Asthma 11/19/2016 Depression with anxiety 03/23/2014 Hyperlipidemia 03/06/2014 Primary osteoarthritis of left knee 03/01/2014 Abdominal pain 10/29/2013 Migraine 03/07/2013 Former smoker 03/06/2013 Overview (03/06/2013): 30 pack years 03/05/16 H/O: hysterectomy 07/28/2012 Irritable bowel syndrome 07/28/2012 GERD (gastroesophageal reflux disease) 1 Non-cardiac chest pain Resolved Problems Problem Noted Date Diagnosed Date Resolved Date Uncontrolled pain 12/17/2021 05/11/2023 Fall 12/17/2021 05/11/2023 Pulmonary nodule 10/25/2021 12/02/2021 Low back pain 04/20/2021 12/02/2021 Hypertensive urgency 10/13/2020 022 Hematuria 11/30/2016 12/02/2021 Left lower quadrant pain 11/30/2016 Atherosclerosis 11/30/2016 11/30/2016 Overview (11/30/2016): On CT Left inguinal pain 11/29/2016 7 Nausea 11/29/2016 11/30/2016 Osteoarthritis of left knee 11/15/2015 11/30/2016 Helicobacter pylori (H. pylori) 10/16/2014 09/02/2015 Overview (10/16/2014): 09/07/2014- treated osteoarthritis of right knee S/P total knee replacement 03/06/2014 09/02/2015 Dyspnea 03/07/2013 03/01/2014 Cough 03/06/2013 03/01/2014 Hypertension 03/25/2011 12/02/2021 H. pylori infection 03/25/2011 03/01/20 14 Infectious colitis, enteriti s, and gastroenteritis 03/23/2008 03/07/2013 Encounters Date Type Department Care Team Description 05/29/2024 11:05 AM CHIEF MEDIA OFFICER Office Visit [facility] [address] [place] [address] Alma Hale MD Medication Management 05/29/2024 Travel 05/22/2024 11:15 AM CHIEF MEDIA OFFICER Office Visit [facility] [address] [place] [address] Melina Solorio MD COPD (Started few days ago, more with activity) 05/22/2024 Travel 05/14/2024 Refill [facility] [address] [place] [address] Alma Hale MD Refill Request (Gabapentin) 04/04/2024 10:40 AM CDT Office Visit [facility] [address] [place] [address] Alma Hale MD Fall (fell 2 weeks ago. Low back pain and left and right shoulder pain. Fatigued. ) 04/04/2024 Travel from Last 3 Months Immunizations Name Administration Dates Next Due Hep B (Hepatitis B (Adult) Recombinant Adjuvanted) 06/01/2022 Influenza Virus, Unspecified 06/11/2016,04/08/20 09 Influenza, IIV3 (Age 6-35 mos) 03/25/2011 Influenza, IIV3 (Age >=3 years) 03/15/20 13,04/05/2012,03/25/2011,2007,05/26/2007 Influenza, IIV4 04/26/2022,,03/20/2019,2016,06/11/2016,07/20/2014 Influenza,CCIIV4 PRESERV FREE 07/16/2023 Pneumococcal Conj 20-valent (Prevnar 20) 06/01/2022 Pneumococcal Poly,23-Valent (Pneumovax) 03/15/2013 Td (Age >=7 Years) 07/12/2005,09/17/2004 Tdap 06/01/2022,04/05/2012 Zoster (Shingrix-RZV, recombinant) 06/01/2022 Family History Medical History Relation Name [...] 0 09/10/2018 Social Connections Answer Date Recorded Do you often feel lonely or isolated from those around you? 0 10/14/2023 Financial Resource Strain Answer Date R ecorded Difficulty of Paying Living Expenses 3 10/14/2023 Difficulty of Paying Living Expenses Not on file 10/14/2023 Food Insecurity Answer Date Recorded Do you worry your food will run out before you are able to buy more? 1 10/14/2023 Transportation Needs Answer Date Record ed Does lack of transportation keep you from medica l appointments? 1 10/14/2023 Does lack of transportation keep you from work, meetings or getting things that you need? 1 10/14/2023 Housing Stability Answer Date Recorded What is your housing situation today? 1 10/14/2023 Sex and Gender Information Value [...] Sign Reading Time Taken Comments Blood Pressure 124/78 05/29/2024 11:16 AM CHIEF MEDIA OFFICER Pulse 100 05/29/2024 11:16 AM CHIEF MEDIA OFFICER Temperature 36.8 C (98.2 F) 10/19/2023 8:00 AM CDT Respiratory Rate 30 05/22/2024 11:15 AM CHIEF MEDIA OFFICER Oxygen Saturation 97% 05/29/2024 11:16 AM CHIEF MEDIA OFFICER Inhaled Oxygen Concentration - - Weight 67.2 kg (148 lb 2.4 oz) 10/19/2023 6:00 A M CDT Height 165.1 cm (5' 5) 10/13/2023 3:28 PM CDT Body Mass Index 24.65 10/13/2023 3:28 PM CDT Plan of Treatment Upcoming Encounters Date Type Department Care Team (Late st Contact Info) Description 06/12/2024 1:50 PM CHIEF MEDIA OFFICER Office Visit [facility] [address] [place] [address] Alma Hale MD [address] [place] [address] 07/18/2024 1:15 PM CHIEF MEDIA OFFICER Office Visit [facility] [address] [place] [address] Gino Negrete DPM [address] [place] [address] Health Maintenance Due Date Last Done Comments Hepatitis C screening for ag e 18-79 1977 Pap test for age 21-65 1980 Mammogram for age 45-75 2004 Depression screening for age 12+ 09/22/2018 09/22/2017, 09/21/2017, 05/18/2017, Additional history exists Colonoscopy through age 75 05/27/2022 05/27/2017 Zoster (shingles) series for age 50+ (2 of 2) 07/27/2022 06/01/2022 BMI (ht and wt on same day) for age 18+ 11/12/2022 11/12/2021, 05/04/2019, 09/21/2017, Additional history exists COVID-19 vaccine series ( season) 2024 12/06/2020, 11/01/2020 Influenza for age 50-64 03/12/2024 07/16/19 24, 04/26/2022, 04/21/2021, Additional history exists Low Dose CT (for lung CA) ag e 50-80 05/11/2024 05/11/2023, 03/10/2023, 03/17/2022, Additional history exists Lipids for age 45-75 05/29/2029 05/29/2024, 06/17/20 12 Tetanus booster 06/01/2032 06/01/2022, 03/13, 07/12/2005, Additional history exists HIV for age 15-65 Completed 10/29/2021 Pneumococcal series for age 6-64 Completed 06/01/20, 03/15/2013 Tdap Completed 06/01/2022, 04/05/2012 Goals Goal Patient Goal Type Associated Problems Recent Progress Patient-Stated? Author BLOOD PRESSURE - Maintains BP less than 140/90 Blood Pressure No Elie Díaz MD Medical Devices Implanted Type Area Job Analyst Device Identifier Shelf Expiration Date Model / Serial / Lot Cmnt Bone 40g Simplex P Non Atb Mv - [id number] Implanted:Qty: 1 on 03/06/2014 by Jassi Raymundo MD at [facility] Right: Knee [employer] 06/10/2016 6191-1-01 0# / / [id number] Cmnt Bone 40g Simplex P Non Atb Mv - [id number] Implanted:Qty: 1 on 03/06/2014 by Jassi Raymundo MD at [facility] Right: Knee [employer] 07/11/2016 6191-1-01 0# / / [id number] Baseplate Tib Sz4 [employer] Ret Pe - [id number] Implanted:Qty: 1 on 03/06/2014 by Jassi Raymundo MD at [facility] Right: Knee [employer] 10/09/2018 5520-B-40 0# / / [id number] Fem Rt Sz3 [employer] Co Cr - [id number] Implanted:Qty: 1 on 03/06/2014 by Jassi Raymundo MD at [facility] Right: Knee [employer] 01/08/2019 5510-F-30 2# / / [id number] Insert Knee Sz4 9mm [employer] Ret X3 - [id number] Implanted:Qty: 1 on 03/06/2014 by Jassi Raymundo MD at [facility] Right: Knee [employer] 08/11/2018 5530-G-40 9# / / [id number] Patella 29x9mm [employer] Asymmetric X3 - [id number] Implanted:Qty: 1 on 03/06/2014 by Jassi Raymundo MD at [facility] Right: Knee [employer] 12/09/2018 5551-G-29 9# / / [id number] Fem Lt Sz3 [employer] Cr - [id number] Implanted:Qty: 1 on 11/19/2016 by Orion Cheng MD at [facility] Left: Knee [employer] 08/12/2021 5510-F-30 1# / / [id number] Baseplate Tib Sz4 [employer] Pe - [id number] Implanted:Qty: 1 on 11/19/2016 by Orion Cheng MD at [facility] Left: Knee [employer] 11/08/2021 5521-B-40 0# / / [id number] Patella 29x9mm [employer] Asymmetric X3 - [id number] Implanted:Qty: 1 on 11/19/2016 by Orion Cheng MD at [facility] Left: Knee [employer] 06/16/2021 5551-G-29 9# / / [id number] Insert Knee Sz4 11mm Triathloncondyle Stbz X3 - [id number] Implanted:Qty: 1 on 11/19/2016 by Orion Cheng MD at [facility] Left: Knee [employer] 08/05/2021 5531-G-41 1# / / [id number] Cmnt Bone 40g Simplex P Non Atb Mv - [id number] Implanted:Qty: 1 on 11/19/2016 by Orion Cheng MD at [facility] Left: Knee [employer] 05/11/2019 6191-1-01 0# / / [id number] Cmnt Bone 40g Simplex P Non Atb Mv - [id number] Implanted:Qty: 1 on 11/19/2016 by Orion Cheng MD at [facility] Left: Knee [employer] 05/11/2019 6191-1-01 0# / / [id number] Cmnt Bone 20g Simplex P Non Atb Mv - [id number] Implanted:Qty: 1 on 11/19/2016 by Orion Cheng MD at [facility] Left: Knee [employer] 11/08/2018 6188-1-01 0# / / [id number] Procedures Procedure Name Priority Date/Time Associated Diagnosis Comments HEMOGLOBIN A1C MONITORING (POCT) Routine 05/29/2024 12:01 PM CHIEF MEDIA OFFICER Type 2 diabetes mellitus with other specified complication, without long-term current use of insulin (HC) BASIC METABOLIC PANEL Routine 05/29/2024 11:59 AM CHIEF MEDIA OFFICER HTN (hypertension) LIPID PANEL Routine 05/29/2024 11:59 AM CHIEF MEDIA OFFICER Hyperlipidemia, unspecified hyperlipidemia type CT CHEST WO STAT 05/11/2023 12:35 PM CDT ANTI HIV 1/2 NEGIN 10/29/2021 8:39 PM CDT COLONOSCOPY SCREENING Routine 05/27/2017 Screening for colon cancer from Last 3 Months or Most Recently Relevant to Health Maintenance Results * (ABNORMAL) HEMOGLOBIN A1C MONITORING (POCT) (05/29/2024 12:01 PM CHIEF MEDIA OFFICER) POC HEMOGLOBIN A1C 6.4(H) <6.0 % OF TOTAL HGB [facility] Comment: Any point of care results exhibiting inconsistency with the patient's clinical status should be repeated using a different testing method. Blood BLOOD SPECIMEN / Unknown 05/29/2024 12:01 PM CHIEF MEDIA OFFICER 05/29/2024 12:01 PM CHIEF MEDIA OFFICER Alma Hale MD CHEMISTRY [facility] [address] [place] [address], [place] [phone] [facility] [address] [place] [address] * LIPID PANEL (05/29/2024 11:59 AM CHIEF MEDIA OFFICER) CHOLESTEROL, TOTAL 139 <200 mg/dL [facility] HDL CHOLESTEROL 52 > OR = 50 mg/dL [facility] TRIGLYCERIDES 132 <150 mg/dL [facility] LDL-CHOLESTEROL 65 mg/dL (calc) [facility] Comment: Reference range: <100 Desirable range <100 mg/dL for primary prevention; <70 mg/dL for patients with CHD or diabetic patients with > or = 2 CHD risk factors. LDL-C is now calculated using the Miguel calculation, which is a validated novel method providing better accuracy than the Friedewald equation in the estimation of LDL-C. Edgar KAPOOR et al. ADALID. 2013;310(19): 1406-7102 (http://education.CD Diagn[facility]/faq/IRH215) CHOL/HDLC RATIO 2.7 <5.0 (calc) [facility] NON HDL CHOLESTEROL 87 <130 mg/dL (calc) [facility] Comment: For patients with diabetes plus 1 major ASCVD risk factor, treating to a non-HDL-C goal of <100 mg/dL (LDL-C of <70 mg/dL) is considered a therapeutic option. Blood BLOOD SPECIMEN / Unknown 05/29/2024 11:59 AM CHIEF MEDIA OFFICER 05/29/2024 12:00 PM CHIEF MEDIA OFFICER Alma Hale MD CHEMISTRY [facility] [address] [place] [address], [place] [phone] [facility] [address] [place] [address] * (ABNORMAL) BASIC METABOLIC PANEL (05/29/2024 11:59 AM CHIEF MEDIA OFFICER) GLUCOSE 104(H) 65 - 99 mg/dL [facility] Comment: Fasting reference interval For someone without known diabetes, a glucose value between 100 and 125 mg/dL is consistent with prediabetes and should be confirmed with a follow-up test. UREA NITROGEN (BUN) 18 7 - 25 mg/dL [facility] CREATININE 0.67 0.50 - 1.05 mg/dL [facility] EGFR 98 > OR = 60 mL/min/1. 73m2 [facility] BUN/CREATININE RATIO SEE NOTE: 6 - 22 (calc) [facility] Comment: Not Reported: BUN and Creatinine are within reference range. SODIUM 143 135 - 146 mmol/L [facility] POTASSIUM 3.6 3.5 - 5.3 mmol/L [facility] CHLORIDE 105 98 - 110 mmol/L [facility] CARBON DIOXIDE 28 20 - 32 mmol/L [facility] ELECTROLYTE BALANCE 10 7 - 17 mmol/L (calc) [facility] CALCIUM 9.8 8.6 - 10.4 mg/dL [facility] Blood BLOOD SPECIMEN / Unknown 05/29/2024 11:59 AM CHIEF MEDIA OFFICER 05/29/2024 12:00 PM CHIEF MEDIA OFFICER Alma Hale MD [facility] [address] [place] [address], [facility] [address] [place] [address] * CT CHEST WO (05/11/2023 12:35 PM [...] care provider. EXAM: CT CHEST WO LOCATION: [facility] DATE: 05/11/2023 INDICATION: Respiratory [...] a result of the Cures Act, medical imagingexams and procedure reports are released immediately into your electronicmedical record. You may view this report before your referring provider.If you have questions, please contact your health care provider. EXAM: CT CHEST WO LOCATION: [facility] DATE: 05/11/2023 INDICATION: Respiratory [...] ANTI HIV 1/2 (10/29/2021 8:39 PM CDT) HIV-1/HIV-2 ANTIBODY Non-Reacti ve Non-Reacti ve 10/30/2021 9:21 AM CDT [facility] Comment:HIV-1 p24 and HIV-1/ HIV-2 Ab not detected. Blood BLOOD SPECIMEN / Unknown Non-Lab Venipuncture / Unknown 10/29/2021 8:39 PM CDT 10/29/2021 8:44 PM CDT Omar Cosby DO SEND OUTS [facility] [address] [place] [address], * COLONOSCOPY SCREENING (05/27/2017) Alma Jaime MD GI PROCEDURE ORD from Last 3 Months or Most Recently [...] Code Status Discussion: Reviewed Preferences Care Teams Angle Furnaceman Relationship Specialty Start Date End Date Gopal Varghese DO [address] [place] [address] [place] [address] PCP - General 12/28/19 Ainsley Pereyra MD [address] [place] [id number] Critical Care Medicine 10/30/21 Maritza Sykes, RN, BSN, OCN [address] [place] [id number] Nurse Navigator - Oncology Registered Nurse 11/12/21 Rico Ortega MD [address] [place] [id number] Consulting Physician Surgery - Cardiothoracic 11/21/21
[2024-06-10 08:20] VITALS: BP 137/98
[2024-06-10 08:32] LABS: PCR FLU A Negative PCR FLU A (Negative); PCR FLU B Negative PCR FLU B (Negative); PCR RSV Negative PCR RSV (Negative); SARS PCR* Negative SARS-CoV-2 (Negative)
[2024-06-10] MEDS: ALBUTEROL SULFATE 2.5 MG/3 ML VIAL.NEB 5 MG NEB (08:36)
== END 2024-06-10 08:59 | disposition home or self-care (01) ==
PROVIDERS: Emergency Provider Family Medicine; PCP Student in an Organized Health Care Education/Training Program
DX: J44.1 Chronic obstructive pulmonary disease with (acute) exacerbation (principal)
CPT/HCPCS: 36415; 71046; 80048; 85025; 86140; 87631; 94640; 99284; A9270; J2919

== ENCOUNTER 2024-08-05 10:28 | Inpatient (IN) | payer SELFPAY ==
[2024-08-05] VITALS (44 sets, daily range): BP systolic 90–171; BP diastolic 47–119; PULSE 50–109; RESP 16–40; TEMP 36.8–37.4; O2SAT 85–98; BMI 23.3; BMI 25.4
--- OUTSIDE RECORDS SUMMARY | 2024-08-05 10:30 | XMS_ITS | Continuity of Care Document ---
Author Organization [facility] Address [address] [address] [place] [address] Phone Care Team Providers Care Executive Staff Assistant Name Role Phone Ekaterina Cruz CRNA Unavailable Unavailable Allergies, Adverse Reactions, Alerts Substance Reaction Status Criticality No Known Allergies Resolved No Inform ation Medications Medication Instructions Dosage Effective Dates (start - stop) Status Comments sertraline 100 mg tablet take 1 tablet by ORAL route every day 100 MG - Active gabapentin 300 mg capsule take 1 capsule by ORAL route every day 300 MG - Active lisinopril 20 mg tablet take 1 tablet by oral route every day 20 MG - Active sertraline 50 mg tablet take 1 Tablet by ORAL route every day 50 MG - No Longer Active amlodipine 10 mg tablet take 1 tablet by oral route every day 10 MG - No Longer Active Chantix 1 mg tablet take 1 tablet by oral route 2 times every day with glass of water after meals 1 MG - No Longer Active Procedures Procedure Date Colonoscopy Flex; W/remov Les- 20 Level Iv-surg Path Gross/micro 20 Init Hosp-da E&m Mod Severity 0 Subsqt Hosp-da E&m Minr Compl 0 Subsqt Hosp-da E&m Minr Compl 0 Colonoscopy Flex; W/remov Les- 17 Level Iv-surg Path Gross/micro 17 Ugi Endo; W/bx 1/mx Level Iv-surg Path Gross/micro 15 Offic/outpt E&m New Mod Sever 5 Helicobac P-breath Anal; Drug 1 Helicobac P-breath Anal; Drug 1 Offic/outpt E&m Estab Low-mod 1 [id number] Subsqt Hosp-da E&m Minr Compl 1 Init Inpt Cons New/est Mod-hi 1 Ugi Endo; W/bx 1/mx Init Inpt Cons New/est Mod-hi 9 Colonoscopy Flex; W/remov Les- 09 Colonoscopy Flex; W/bx 1/mx Ugi Endo; W/bx 1/mx Level Iv-surg Path Gross/micro 09 Immunocytochemistry, Each Antibody Offic Cons New/estab Mod-hi 60 09 Routine Serum Collection [id number] Subsqt Hosp-da E&m Minr Compl 8 Subsqt Hosp-da E&m Minr Compl 8 Ugi Endo; W/bx 1/mx Init Inpt Cons New/est Mod-hi 8 Subsqt Hosp-da E&m Minr Compl 8 Init Inpt Cons New/est Mod-hi 8 Init Inpt Cons New/est Mod-hi 8 Ugi Endo; Dx W/wo Collec Specm 08 Advance Directives Directive Yes / No Effective Date File Name No Information Encounters Encounter Description Practice Location Reason(s) For Visit Diagnoses Date Provider Providers Copied on Encounter [facility] [address] [address], [place], [place], [id number], [place] tel:[phone] [facility] No Information 0 Anthony Tobar. [address] [facility], [place], [place], [id number], [place]. tel:[phone] Referring Provider: Héctor Blake, [address] [facility] [address], [place], [address] . tel:[phone] [facility] NISHA, [address] [address], [place], [id number], [place] tel:[phone] [facility] Colorectal polyp detected on colonoscopyPerso nal history of colonic polypsDiverticul osis of colon without diverticulitisAb normal findings on dx imaging of ot body structuresAbnorm al findings on dx imaging of ot body structuresPerson al history of colonic polyps 0 Winifred Anaya. [address] [facility], [facility] [address], [place], [place], [id number], [place]. tel:[phone] Referring Provider: Referral Self, USE FOR SELF REFERRALS. [facility] NISHA, [address] [address], [place], [id number], [place] tel:[phone] [facility] No Information 0 Winifred Anaya. [address] [facility], [place], [place], [id number], [place]. tel:[phone] [facility] Dig[facility] NISHA, [address] [address], [place], [id number], [place] tel:[phone] [facility] Colitis 0 No Information Init Hosp- E&m Mod Severity [facility] NISHA, [address] [address], [place], [id number], [place] tel:[phone] No Information 0 No Information [facility] NISHA, [address] [address], [place], [id number], [place] tel:[phone] [facility] Benign colonic polypDiverticulo sis of colon without diverticulitisCo nadira cancer screeningBenign neoplasm of colon, unspecifiedEncou nter for screening for malignant neoplasm of colonDvrtclos of lg int w/o perforation or abscess w/o bleedingPolyp of colon 7 No Information [facility], [address] [address], [place], [id number], [place] tel:[phone] [facility] H. Pylori InfectionHelicob acter pylori [H. pylori] as the cause of diseases classified elsewhere 5 Go MD Zamudio. [address] [facility], [facility] [address], [place], [place], [id number], [place]. tel:[phone] [facility]ive [facility], [address] [address], [place], [id number], [place] tel:[phone] [facility] GastritisGastrit isGastritis - mildAtrophic Gastritis Go MD Zamudio. [address], [id number], [place]. tel:[phone] Referring Provider: Referral Self, USE FOR SELF REFERRALS. Offic/outpt E&m [facility], [address] [address], [place], [id number], [place] tel:[phone] [facility] GI Symptoms or Concerns (chief complaint) Epigastric PainNausea And VomitingDietary Surveil/counselN ausea with vomiting, unspecifiedEpiga stric painDietary counseling and surveillance No Information Referring Provider: Referral Self, USE FOR SELF REFERRALS. [facility], [address] [address], [place], [id number], [place] tel:[phone] [facility] H. Pylori Infection Rodo Anaya. [address] [facility], [facility] [address], [place], [place], [id number], [place]. tel:[phone] Referring Provider: Sundeep Peña MD, [address] [place], [address]. tel:[phone] [facility] [place], [address] [address], [place], [id number], [place] tel:[phone] [facility] H. Pylori InfectionEpigast mendez PainGastroesopha geal Reflux Rodo Anaya. [address] [facility], [place], [place], [id number], [place]. tel:[phone] Referring Provider: Sundeep Peña MD, [address] [place], [address]. tel:[phone] Offic/outpt E&m Estab Low-mod [facility], [address] [address], [place] [facility] [place], [id number], [place] tel:[phone] [facility] H Pylori (chief complaint) Gastroesophageal RefluxEpigastric PainH. Pylori InfectionConstip ation Unspecified Rodo Anaya. [address] [facility], [facility] [address], [place], [place], [id number], [place]. [phone] Referring Provider: Sundeep Peña MD, [address] [place], [address]. tel:[phone] Subsqt Hosp-da E&m Minr Compl [facility] [place], [address] [address], [place] [facility] [place], [id number], [place] tel:[phone] [facility] No Information No Information Referring Provider: Huber Mtz, [address] [facility], [place], [address]. tel:[phone] Init Inpt Cons New/est Mod-hi [facility], [address] [address], [place] [facility] [place], [address], [place] tel:[phone] [facility] No Information 1 No Information Referring Provider: Huber Mtz, [address] [facility] , [place], [address]. tel:[phone] Init Inpt Cons New/est Mod-hi [facility], [address] [address], [place] [facility], [place], [id number], [place] tel:[phone] [facility] No Information 9 No Information Referring Provider: Huber Mtz, [address], [place], [address]. tel:[phone] [facility], [address] [address], [place], [id number], [place] tel:[phone] [facility] Diverticulosis Of ColonPolyp-intes /rect/stom-unc BehHiatal HerniaBenign Neoplasm Lg BowelGastritis W/o BleedH. Pylori InfectionDiverti culosis Of Colon 9 No Information Referring Provider: Maite Rivera MD, [address], [place], [address]. tel:[phone] Offic Cons New/estab Mod-hi 60 [facility], [address] [address], [place], [id number], [place] tel:[phone] [facility] Abdominal pain (chief complaint) Abdominal Pain, UnspecifiedNause a With VomitingChange In Bowel HabitsWeight Loss 9 Melvina Valero. [address], [id number], [place]. tel:[phone] Referring Provider: Maite Rivera MD, [address], [place], [address]. tel:[phone] Subsqt Hosp-da E&m Minr Compl [facility] NISHA, [address] [address], [place], [id number], [place] tel:[phone] [employer] [facility] No Information 8 No Information [facility] NISHA, [address] [address], [place], [id number], [place] tel:[phone] [employer] No Information 8 Uriah Carey. [address], [id number], [place]. tel:[phone] Init Inpt Cons New/est Mod-hi [facility], [address] [address], [place], [id number], [place] tel:[phone] [employer] [facility] No Information 8 Rodo Anaya. [address], [id number], [place]. [phone] Subsqt Hosp-da E&m Minr Compl [facility], [address] [address], [place] [facility] [place], [id number], [place] tel:[phone] [facility] No Information 0 8200 8 Rodo Anaya. [address], [id number], [place]. [phone] Init Inpt Cons New/est Mod-hi [facility], [address] [address], [place] [facility] [place], [id number], [place] tel:[phone] [facility] No Information 0 6200 8 No Information Init Inpt Cons New/est Mod-hi [facility], [address] [address], [place] [facility] [place], [id number], [place] tel:[phone] No Information [address] [place] [address], [id number], [place]. tel:[phone] Referring Provider: Listed Not. Family History Family Member Type Diagnosis Age At Onset Daughter Problem (finding) Alive and well Brother Problem (finding) Cancer, unknown First degree family history Problem (finding) Colon Po lyps Son Problem (finding) Alive and well Sister Problem (finding) asthma Brother Problem (finding) Alive and well Brother Problem (finding) First degree family history Problem (finding) ulcerati ve colitis Sister Problem (finding) Alive and well Mother Problem (finding) peptic ulceration Brother Problem (finding) Cardiovascular disease Sister Problem (finding) Immunizations Vaccine Date Status Comments Fluzone Quad 6mo or older administered Note: [facility] bi-direct ional interface ; Source: Other Registry Fluzone Quad 6mo or older administered Note: [facility] bi-direct ional interface ; Source: Other Registry Fluzone Quad 6mo or older administered Note: [facility] bi-direct ional interface ; Source: Other Registry Fluzone Quad 6mo or older administered Note: [facility] bi-direct ional interface ; Source: Other Registry Influenza virus vaccine, injectable, quadrivalent, split virus, preservative free, 3 years or older Fluarix, Flulaval or Fluzone Quad administered Note: Invalid docume nted admin date was . ; Source: Other Provider Pneumovax 23 administered Note: [facility] bi-d irectional interface ; Source: Other Registry tetanus toxoid, reduced diphtheria toxoid, and acellular pertussis vaccine, adsorbed administered Note: [facility] bi-direct ional interface ; Source: Other Registry Influenza, seasonal, injectable, preservative free administered Note: [facility] bi-directional interface ; Source: Other Registry influenza virus vaccine, unspecified formulation administered Note: [facility] bi-di rectional interface ; Source: Other Registry Influenza, seasonal, injectable administe red Note: [facility] bi- directional interface ; Source: Other Registry tetanus and diphtheria toxoi ds, adsorbed, preservative free, for adult use (2 Lf of tetanus toxoid and 2 Lf of diphtheria toxoid) administered Note: [facility] bi-direct ional interface ; Source: Other Registry Payers Payer name Insurance type Covered alliance party ID Mony avitia(s) Pending sale to [facility] CR/MA CI [id number] Social History Type Description Quantity Date Captured Comments Sex Female Smoking Status No Information Chief Complaint And Reason For Visit No Information Reason For Referral Reason For Referral No Information Plan Of Treatment Date Type Action Status Goal Lifestyle education cindain g diet completed Referral Ordered: Colonoscopy Appointment date/timeframe: 03/06/2020 ordered History Of Present Illness Encounter Date Complaint History Of Prese nt Illness GI Symptoms or Concerns Zahira comes to the office today for evaluation of upper abdominal pain. She has a history of H. pylori gastritis and was diagnosed in seven or eight years ago initially. In 2008, she had a recurrence of the abdominal pain and biopsy showed H. pylori again. She was treated with Prevpac and she had a followup H. pylori breath test, which was negative. She then did well until seven or eight months ago when she had another episode of pain and was treated with Prilosec for a month with resolution. She then did well until two weeks ago when she developed abdominal pain again associated with nausea and vomiting almost daily if she would eat. The pain would keep her at night and she took Percocet for pain. She started Prilosec twice a day two weeks ago. CT scan apparently showed inflammation in the stomach, but I do not have a copy of that yet. Her weight has decreased 10 pounds. Initially, she had diarrhea for about four or five days, but that has resolved. There was no blood in t Functional Status Date Functional Assessmen t No Information Instructions Date Instruction Additional Infor tess Diverticulosis/Diverticulitis Re lated to Diverticulosis of colon without diverticulitis Colon Polyps Related to Diver ticulosis of colon without diverticulitis 1. I will schedule t he patient for an upper GI endoscopy as soon as possible hopefully today or at the latest tomorrow. This was discussed with the patient and her . They appeared to understand and agreed to proceed. I will also obtain blood work from to see what was checked at that time.2. She will continue on the Prilosec twice a day.Thank you very much for allowing me to participate in the care of this patient. Related to Epigastric Pain Lifestyle education regarding di et Related to Dietary surveillance and counseling Assessments Type Assessment Date No Information Patient Care Teams Name Effective Dates (start - stop) Status Members No Information
--- OUTSIDE RECORDS SUMMARY | 2024-08-05 10:30 | XMS_ITS | Encounter Summary ---
Author Organization [facility] Address [address] [place] [address] Care Team Providers Care Media Specialist Name Role Phone Gopal Varghese DO Primary Care Provider [phone] Encounter Details Date Type Department Care Team [...] R/O COVID19 07/09/2023 07/09/2023 07/09/2023 4:52 PM RESIDENT SERVICES DIRECTOR documented as of this encounter Care Teams Media Specialist Relationship Specialty Start Date End Date Gopal Varghese DO [address] [place] [address] PCP - General Family Practice 05/29/19 documented as of this encounter
--- OUTSIDE RECORDS SUMMARY | 2024-08-05 10:30 | XMS_ITS | CCD ---
Author Name Interface, [id number] Address [address] [facility] [address] [address] Organization [facility] Address [address] [facility] [address] [address] Care Team Providers Care Risk Analyst Name Role Phone Rico Ortega Unavailable Unavailable Care Plan Date Type Value 11/24/2021 LABORDER Chest x-ray, PA and lateral 11/28/[address] w/o IV contrast Reason for Visit OV 15 MIN Encounters Date Name 03/18/2022 Lung adenocarcinoma Medications Date Name Route Dose Frequency Instructions Start Date End Date Status Sertraline Oral Oral 100.0 mg active Aspirin Oral Oral 81.0 mg act rivera Budesonide-Formot janie HFA Inhaler 160 mcg-4.5 mcg/actuation active 12/05/19 22 Acetaminophen Oral Oral 1000.0 mg 2 active 12/05/19 22 Hydromorphone Oral Oral 2 active 12/05/19 22 Ibuprofen Oral Oral 600.0 mg 2 active 12/05/19 22 Lisinopril Oral Oral 20.0 mg 2 active 12/05/19 22 Amlodipine Oral Oral 10.0 mg 2 active 11/05/19 22 Albuterol-Ipratro pium Nebulized 3 mg (2.5 mg base)-0.5 mg/3 mL Neb 3.0 mL 2 active 11/05/19 22 Lorazepam Oral 2 active 08/10/19 22 Atorvastatin Oral Oral 40.0 mg 02 2 active 07/25/19 22 Gabapentin Oral Oral 300.0 mg 2 active 05/27/20 21 Metformin Oral 24 hr Tab Oral 4.0 {tbl} 1 active Problems Diagnosis Status Date of Diagnosi s Lung adenocarcinoma Active Lung nodule, solitary Active Social History Date Name Value 11/17/2021 Sex Female
--- OUTSIDE RECORDS SUMMARY | 2024-08-05 10:30 | XMS_ITS | Clinical Summary ---
Author Organization [employer] [facility] [employer] [facility] Address [place], [place] [address] Care Team Providers Care Wood Crafter Name Role Phone Ainsley Pereyra MD Unavailable Maritza Sykes RN, BSN, OCN Unavailable Rico Ortega MD Unavailable Alma Hale MD Primary Care Prov ider Allergies Active Allergy Reactions Criticality Noted Date Comments Bismuth Subsalicylate Anaphylaxis High 01/01/2020 Unclear if it was due to this or ciprofloxacin Ciprofloxacin Anaphylaxis High 01/01/2020 Unclear if it was due to this or BISMUTH SUBSALICYLATE Naproxen GI Upset 06/11/2016 Medications aspirin (ECOTRIN) 81 mg enteric coated tablet Take 81 mg by mouth once daily. Active sennosides-docus ate (SENOKOT S) (8.6-50 mg) tabletIndication s:Drug-induced constipation Take 1-3 Tablets by mouth 2 times daily if needed for Constipation. 30 Tablet 12/04/2021 11:05 AM CDT 12/05/19 Active acetaminophen (TYLENOL EXTRA STRGTH) 500 mg tablet Take 1,000 mg by mouth every 6 hours if needed for Pain. Max acetaminophen dose: 4000mg in 24 hrs. Active albuterol (PROVENTIL) 0.083 % neb solutionIndicati ons:COPD exacerbation (HC) Inhale 3 mL (2.5 mg) via a nebulizer three times daily. 300 mL 05/12/20 Active nebulizer and compressor ([facility] PulmoNeb LT Comp-Neb)Indicat ions:COPD with acute exacerbation (HC) For home use. Length of need: 999 days 1 Each 06/27/20 23 Active albuterol HFA (PRO-AIR; VENTOLIN; PROVENTIL) 90 mcg/actuation inhalerIndicatio ns:COPD mixed type (HC) Inhale 2 Puffs by mouth every 4 hours if needed for Shortness Of Breath (shortness of breath). 18 g 04/04/20 24 Active NebulizerIndicat ions:COPD with acute exacerbation (HC) Nebulizer, disposable neb kit x 4, reuseable neb kit x 1, mask x 1, filters x 1. Frequency of use: daily; Medication: duonekatey Length of need: 99 months 1 Each 05/22/20 24 Active varenicline (CHANTIX DOSEPAK) 0.5 mg (11)- 1 mg (42) tabletIndication s:Tobacco dependence Days 1-3 take 0.5mg once daily; Days 4-7 take 0.5mg twice daily; then increase to 1mg twice daily. Take with meals. 1 Packet 05/22/20 24 Active varenicline (CHANTIX) 1 mg tabletIndication s:Tobacco dependence Take 1 mg by mouth two times daily with meals. 112 Tablet 05/22/20 24 Active lisinopriL (PRINIVIL; ZESTRIL) 20 mg tabletIndication s:hypertension Take 1 Tablet (20 mg) by mouth once daily. Hold for systolic blood pressure <110 90 Tablet 05/29/20 24 Active amLODIPine (NORVASC) 10 mg tabletIndication s:hypertension Take 1 Tablet (10 mg) by mouth once daily. 90 Tablet 05/29/20 24 Active atorvastatin (LIPITOR) 40 mg tabletIndication s:hypercholester olemia Take 1 Tablet (40 mg) by mouth once daily. 90 Tablet 05/29/20 24 Active sertraline (ZOLOFT) 100 mg tabletIndication s:anxiety with depression Take 1.5 Tablets (150 mg) by mouth once daily. 135 Tablet 05/29/20 24 Active Active Problems Problem Noted Date Diagnosed [...] cyst 10/04/2019 Overview (12/02/2021): On ct ivp 2019 rec mri c [...] Encounters Date Type Department Care Team Description 06/23/2024 Nurse Triage [facility] Centralized Nurse Triage Pcp, No Difficulty Breathing 06/10/2024 Orders Only [facility] Scanner 1 [facility], 06/10/2024 05/29/2024 11:05 AM PROTECTION CONSULTANT Office Visit [facility] [address] [place] [address] Alma Hale MD Medication Management 05/29/2024 Travel 05/22/2024 11:15 AM PROTECTION CONSULTANT Office Visit [facility] [address] [place] [address] Melina Solorio MD COPD (Started few days ago, more with activity) 05/22/2024 Travel 05/14/2024 Refill [facility] [address] [place] [address] Alma Hale MD Refill Request (Gabapentin) from Last 3 Months Immunizations Name Administration [...] is your housing situation today? 1 10/14/2023 Interpersonal Safety Answer Date Record ed Are you being hit, kicked, p ushed or yelled at (see row info)? No 10/13/2023 Interpersonal Safety Abuse 12 - 18 Not on file 10/13/2023 Interpersonal Safety Ambulatory Vulnerability No t on file 10/13/2023 Utilities Answer Date Recorded Do you have trouble paying f or utilities (for example, heat, electricity, water, phone)? 1 10/14/2023 Comments No Sex and Gender Information Value Date Recorded Sex Assigned at Not on file Legal Sex Female 6:32 AM PROTECTION CONSULTANT Gender Identity Not on file Sexual Orientation Not on file Occupation Industry Job Start Date Job End Date [employer] Not on file Not on file Not on file Obstetrics History Para Term AB IAB SAB Ectopic Multiple Livin g Live Births 4 1 1 3 Date Outcome GA Total Labor Labor/2nd/3rd Weight Sex Type Anes PTL Diamond A1 A5 Name Clin SAB Last Filed Vital Signs Vital Sign Reading Time Taken Comments Blood Pressure 124/78 05/29/2024 11:16 AM PROTECTION CONSULTANT Pulse 100 05/29/2024 11:16 AM PROTECTION CONSULTANT Temperature 36.8 C (98.2 F) 10/19/2023 8:00 AM CDT Respiratory Rate 30 05/22/2024 11:15 AM PROTECTION CONSULTANT Oxygen Saturation 97% 05/29/2024 11:16 AM PROTECTION CONSULTANT Inhaled Oxygen Concentration - - Weight 67.2 [...] 09/22/2018 09/22/2017, 09/21/2017, 05/18/2017, Additional history exists RSV vaccine for adults or (1 - Risk 60-74 years 1-dose series) 2019 Colonoscopy through age 75 05/27/2022 05/27/2017 Zoster (shingles) series for age 50+ (2 of 2) 07/27/2022 06/01/2022 BMI (ht and wt on same day) for age 18+ 11/12/2022 11/12/2021, 05/04/2019, 09/21/2017, Additional history exists COVID-19 vaccine series (2023- season) 2024 12/06/2020, 11/01/2020 Influenza for age 50-64 03/12/2024 07/16/19, 04/26/2022, 04/21/2021, Additional history exists Low Dose CT (for lung CA) ag e 50-80 05/11/2024 05/11/2023, 03/10/2023, 03/17/2022, Additional history exists Lipids for age 45-75 05/29/2029 05/29/2024, 06/17/20 12 Tetanus booster 06/01/2032 06/01/2022, 03/13, 07/12/2005, Additional history exists HIV for age 15-65 Completed 10/29/2021 Pneumococcal series for age 50+ Completed , 03/15/2013 Tdap Completed 06/01/2022, 04/05/2012 Goals Goal Patient Goal Type Associated Problems Recent Progress Patient-Stated? Author BLOOD PRESSURE - Maintains BP less than 140/90 Blood Pressure No Elie Díaz MD Medical Devices Implanted Type Area Chief Writer Device Identifier Shelf Expiration Date Model / Serial / Lot Cmnt Bone 40g Simplex P Non Atb Mv - [id number] Implanted:Qty: 1 on 03/06/2014 by Jassi Raymundo MD at [facility] Right: Knee [employer] 06/10/2016 6191-1-01 0# / / [id number] Cmnt Bone 40g Simplex P Non Atb Mv - [id number] Implanted:Qty: 1 on 03/06/2014 by Jassi Raymundo MD at [facility] Right: Knee [employer] 07/11/2016 6191-1-01 0# / / [id number] Baseplate Tib Sz4 [employer] Cru[employer] Ret Pe - [id number] Implanted:Qty: 1 on 03/06/2014 by Jassi Raymundo MD at [facility] Right: Knee [employer] 10/09/2018 5520-B-40 0# / / [id number] Fem Rt Sz3 [employer] Cruc Ret Co Cr - [id number] Implanted:Qty: 1 on 03/06/2014 by Jassi Raymundo MD at [facility] Right: Knee [employer] 01/08/2019 5510-F-30 2# / / [id number] Insert Knee Sz4 9mm Triathloncruc Ret X3 - [id number] Implanted:Qty: 1 on 03/06/2014 by Jassi Raymundo MD at [facility] Right: Knee [employer] 08/11/2018 5530-G-40 9# / / [id number] Patella 29x9mm [employer] Asymmetric X3 - [id number] Implanted:Qty: 1 on 03/06/2014 by Jassi Raymundo MD at [facility] Right: Knee [employer] 12/09/2018 5551-G-29 9# / / [id number] Fem Lt Sz3 [employer] Cruc Ret Co Cr - [id number] Implanted:Qty: 1 on 11/19/2016 by Orion Cheng MD at [facility] Left: Knee [employer] 08/12/2021 5510-F-30 1# / / [id number] Baseplate Tib Sz4 [employer] Pe - [id number] Implanted:Qty: 1 on 11/19/2016 by Orion Cheng MD at [facility] Left: Knee [employer] 11/08/2021 5521-B-40 0# / / [id number] Patella 29x9mm [employer] Asymmetric X3 - [id number] Implanted:Qty: 1 on 11/19/2016 by Orion Cheng MD at [facility] Left: Knee [employer] 06/16/2021 5551-G-29 9# / / [id number] Insert Knee Sz4 11mm Triathloncondyle Stbz X3 - [id number] Implanted:Qty: 1 on 11/19/2016 by Orion Cheng MD at [facility] Left: Knee [employer] 08/05/2021 5531-G-41 1# / / [id number] Cmnt Bone 40g Simplex P Non Atb Mv - [id number] Implanted:Qty: 1 on 11/19/2016 by Orion Cheng MD at [facility] Left: Knee [employer] 05/11/2019 6191-1-01 0# / / [id number] Cmnt Bone 40g Simplex P Non Atb Mv - [id number] Implanted:Qty: 1 on 11/19/2016 by Orion Cheng MD at [facility] Left: Knee [employer] 05/11/2019 6191-1-01 0# / / [id number] Cmnt Bone 20g Simplex P Non Atb Mv - [id number] Implanted:Qty: 1 on 11/19/2016 by Orion Cheng MD at [facility] Left: Knee [employer] 11/08/2018 6188-07-12 0# / / [id number] Procedures Procedure Name Priority Date/Time Associated Diagnosis Comments SCAN-RADIOLOGY REPORT 06/10/2024 12:00 AM PROTECTION CONSULTANT HEMOGLOBIN A1C MONITORING (POCT) Routine 05/29/2024 12:01 PM PROTECTION CONSULTANT Type 2 diabetes mellitus with other specified complication, without long-term current use of insulin (HC) BASIC METABOLIC PANEL Routine 05/29/2024 11:59 AM PROTECTION CONSULTANT HTN (hypertension) LIPID PANEL Routine 05/29/2024 11:59 AM PROTECTION CONSULTANT Hyperlipidemia, unspecified hyperlipidemia type CT CHEST WO STAT 05/11/2023 12:35 PM CDT ANTI HIV 1/2 NEGIN 10/29/2021 8:39 PM CDT COLONOSCOPY SCREENING Routine 05/27/2017 Screening for colon cancer from Last 3 Months or Most Recently Relevant to Health Maintenance Results * SCAN-RADIOLOGY REPORT (06/10/2024 12:00 AM PROTECTION CONSULTANT) Anatomical Region Laterality Modality Other us Scanner OTHER Final Result * (ABNORMAL) HEMOGLOBIN A1C MONITORING (POCT) (05/29/2024 12:01 PM PROTECTION CONSULTANT) POC HEMOGLOBIN A1C 6.4(H) <6.0 % OF TOTAL HGB [facility] Comment: Any point of care results exhibiting inconsistency with the patient's clinical status should be repeated using a different testing method. Blood BLOOD SPECIMEN / Unknown 05/29/2024 12:01 PM PROTECTION CONSULTANT 05/29/2024 12:01 PM PROTECTION CONSULTANT us Alma Hale MD CHEMISTRY Fi nal Result [facility] [address] [place] [address], [place] [phone] [facility] [address] [place] [address] * LIPID PANEL (05/29/2024 11:59 AM PROTECTION CONSULTANT) CHOLESTEROL, TOTAL 139 <200 mg/dL [employer] onatalia Solis HDL CHOLESTEROL 52 > OR = 50 mg/dL [facility] TRIGLYCERIDES 132 <150 mg/dL [facility] LDL-CHOLESTEROL 65 mg/dL (calc) [facility] Comment: Reference range: <100 Desirable range <100 mg/dL for primary prevention; <70 mg/dL for patients with CHD or diabetic patients with > or = 2 CHD risk factors. LDL-C is now calculated using the Miguel calculation, which is a validated novel method providing better accuracy than the Friedewald equation in the estimation of LDL-C. Edgar SS et al. ADALID. 2013;310(19): 8511-5617 (http://education.Performance Lab/faq/RFV561) CHOL/HDLC RATIO 2.7 <5.0 (calc) [employer] [facility] NON HDL CHOLESTEROL 87 <130 mg/dL (calc) [facility] Comment: For patients with diabetes plus 1 major ASCVD risk factor, treating to a non-HDL-C goal of <100 mg/dL (LDL-C of <70 mg/dL) is considered a therapeutic option. Blood BLOOD SPECIMEN / Unknown 05/29/2024 11:59 AM PROTECTION CONSULTANT 05/29/2024 12:00 PM PROTECTION CONSULTANT Alma Hale MD CHEMISTRY Fi nal Result [employer] [facility] [address] [place] [address], [facility] [address] [place] [address] * (ABNORMAL) BASIC METABOLIC PANEL (05/29/2024 11:59 AM PROTECTION CONSULTANT) GLUCOSE 104(H) 65 - 99 mg/dL [employer] gui De Leone Comment: Fasting reference interval For someone without known diabetes, a glucose value between 100 and 125 mg/dL is consistent with prediabetes and should be confirmed with a follow-up test. UREA NITROGEN (BUN) 18 7 - 25 mg/dL [facility] CREATININE 0.67 0.50 - 1.05 mg/dL [facility] EGFR 98 > OR = 60 mL/min/1. 73m2 [facility] BUN/CREATININE RATIO SEE NOTE: 6 - 22 (calc) [facility] Comment: Not Reported: BUN and Creatinine are within reference range. SODIUM 143 135 - 146 mmol/L [facility] POTASSIUM 3.6 3.5 - 5.3 mmol/L [facility] CHLORIDE 105 98 - 110 mmol/L [facility] CARBON DIOXIDE 28 20 - 32 mmol/L [facility] ELECTROLYTE BALANCE 10 7 - 17 mmol/L (calc) [facility] CALCIUM 9.8 8.6 - 10.4 mg/dL [facility] Blood BLOOD SPECIMEN / Unknown 05/29/2024 11:59 AM PROTECTION CONSULTANT 05/29/2024 12:00 PM PROTECTION CONSULTANT Alma Hale MD CHEMISTRY Fi nal Result [employer] [facility] [address] [place] [address], [facility] [address] [place] [address] * CT CHEST WO (05/11/2023 12:35 PM [...] care provider. EXAM: CT CHEST WO LOCATION: [facility] MEDICAL IMAGING DATE: 05/11/2023 INDICATION: Respiratory illness. [...] care provider. EXAM: CT CHEST WO LOCATION: [facility] MEDICAL IMAGING DATE: 05/11/2023 INDICATION: Respiratory illness. [...] No pleural effusion. Kriss Garcia DO CT Final Result * ANTI HIV 1/2 (10/29/2021 8:39 PM CDT) HIV-1/HIV-2 ANTIBODY Non-Reacti ve Non-Reacti ve 10/30/2021 9:21 AM CDT [facility] Comment:HIV-1 p24 and HIV-1/ HIV-2 Ab not detected. Blood BLOOD SPECIMEN / Unknown Non-Lab Venipuncture / Unknown 10/29/2021 8:39 PM CDT 10/29/2021 8:44 PM CDT Omar Cosby DO SEND OUTS Fi nal Result [facility] [address] [place] [address], [place] * COLONOSCOPY SCREENING (05/27/2017) Alma Jaime MD GI PROCEDURE ORD Fin al Result from Last 3 Months or Most Recently Relevant to [place] [id number] [facility] Advance Directives * Full Code (Latest Code [...] Code Status Discussion: Reviewed Preferences Care Teams Wood Crafter Relationship Specialty Start Date End Date Alma Hale MD [address] [place] [id number] PCP - General Family Practice 06/26/24 Ainsley Pereyra MD Critical Care Medicine 10/30/21 Maritza Sykes, RN, BSN, OCN Nurse Navigator - Oncology Registered Nurse 11/12/21 Rico Ortega MD Consulting Physician Surgery - Cardiothoracic 11/21/21
--- OUTSIDE RECORDS SUMMARY | 2024-08-05 10:30 | XMS_ITS | Encounter Summary ---
Author Organization [employer] Address [address] [place] [address] Care Team Providers Care Seal Delivery Vehicle Team Technician Name Role Phone Gopal Varghese DO Primary Care Provider [phone] Encounter Details Date Type Department Care Team [...] R/O COVID19 07/09/2023 07/09/2023 07/09/2023 4:52 PM CARPENTER ASSISTANT documented as of this encounter Care Teams Seal Delivery Vehicle Team Technician Relationship Specialty Start Date End Date Gopal Varghese DO [address] [place] [address] PCP - General Family Practice 05/29/19 documented as of this encounter
--- OUTSIDE RECORDS SUMMARY | 2024-08-05 10:30 | XMS_ITS ---
Author Name Interface, [id number] Address [address] [address] [place] [address] [facility] Address [address] [address] [place] [address] Care Team Providers Care Powder Room Attendant Name Role Phone Rico Ortega Unavailable Unavailable Allergies and Adverse Reactions Plan Reason for Visit Encounters Medications Problems Vital Signs
--- OUTSIDE RECORDS SUMMARY | 2024-08-05 10:31 | XMS_ITS | Clinical Summary ---
Author Organization [facility] [employer] Address [address] [address] Care Team Providers Care Rubber Stamp Maker Name Role Phone Gopal Varghese Primary Care Provider [phone] Source Comments You are receiving this document as you are listed as the primary care provider,follow-up provider, or the patient has been referred to you for consultation.This is in compliance with the Medicare and[facility] EHR Incentive Program,which states Providers who transition their patient to another setting of careor provider of care or refers their patient to another provider of care shouldprovide summary care record for each transition of care or referral. [facility] Allergies Active Allergy Reactions Criticality Noted Date [...] hydrOXYzine HCl (ATARAX) 25 MG tabletIndications:An xiety ([facility]) Take 1 Tablet (25 mg) by mouth [...] tage 2 moderate COPD by GOLD classification ([facility]) Inhale 1 Puff daily. 1 Each 11 08/19/2023 Active gabapentin (NEURONTIN) 300 MG capsuleIndications:M enopausal syndrome (hot flashes) TAKE 1 CAPSULE(300 MG) BY MOUTH THREE TIMES DAILY 270 Capsule 1 11/24/2023 Active metFORMIN XR (GLUCOPHAGE XR) 500 MG 24 hour release tabletIndications:Ty pe 2 diabetes mellitus without complication, without long-term current use of insulin ([facility]) Take 4 Tablets (2,000 mg) by mouth [...] 01/11/2024 Active predniSONE (DELTASONE) 10 MG tabletIndications:Ac nay Exacerbation of COPD (Inactive) Take 40 mg [...] resources. Emerita Yanez RN 12/23/2021, 5:25 PM [phone] This is an FYI only. No action from the clinic is required. Zahira Fernandez was enrolled with Disease and Case Management and the case has been closed because patient stopped responding. If questions or concerns please contact me at [phone] 07/09/2021 6:31 PM Problem Noted Date Diagnosed [...] admission for COPD exacerbation - Pulmonology at [place] 11/2021 - Lobectomy Dr. Ortega - [place] Status post total left knee replacement 11/20/19 [...] (10/15/2021): Tier 2 DX V65.8 REPLACED WITH 65724 [employer] (10/17/2012) Prediabetes 07/28/2012 12/09/2022 Sprain and strain of shoulder and upper arm 07/28/2012 04/15/2022 Overview (10/15/2021): Problem list name updated by automated process. Provider to review UTI (urinary tract infection) 07/28/2012 04/15/2022 Overview (10/15/2021): Problem list name updated by automated process. Provider to review Artificial menopause 04/14/2006 021 Encounters Date Type Department Care Team Description 06/10/2024 [facility] HIM DEPARTMENT Provider, MD Rema [facility] 06/10/2024 from Last 3 Months Immunizations Name Administration Dates Next Due Flu Vac (3+ yrs) 03/15/2013, 2,03/25/2011,2008,09/10/2007,05/26/2007 Flu Vac Preserv Free (3+yrs) 03/25/2011 HepB Adult (Heplisav-B, 19+ yrs, 2 dose series) 06/01/2022 Influenza (Flucelvax), Prese rv Free QIV 07/16/2023 Influenza IIV4 (Quadrivalent ) 0.5mL (69829) 04/26/2022,04/21/2021,03/20/2019,2016,06/11/2016,07/20/2014 Influenza, Unspecified Formulation 06/11/2016, Moderna Monovalent 12+ 12/06/2020,11/01/2020 PCV20 ([id number]) 06/01/2022 PPSV23 (Pneumovax) 03/15/2013 Td 07/12/2005,09/17/2004 Tdap [...] CDT Respiratory Rate 22 08/12/2023 5:43 PM AIRCRAFT LOG CLERK Oxygen Saturation 95% 01/21/2024 2:45 PM CDT Inhaled Oxygen Concentration - - Weight 72.6 kg (160 lb) 01/21/2024 2:45 PM CDT Height 165.1 cm (5' 5) 01/21/2024 2:45 PM CDT Body Mass Index 26.63 01/21/2024 2:45 PM CDT Plan of Treatment Health Maintenance Due Date Last Done Comments RSV (1 - Risk 60-74 years 1-dose series) 2019 Diabetes: Eye Exam 12/06/2021 12/06/2020, 0 12/06/2020, 06/19/2020, Additional history exists HepB (2) 06/29/2022 06/01/2022 Zoster/Shingles (2 of 2) 07/27/2022 06/01/2022 Colonoscopy 11/21/2022 11/21/2020, 07/13, 01/17/2009, Additional history exists Adult Preventive Visit 06/01/2023 , 06/16/2019, 05/19/2006 Mammogram 08/13/2023 08/13/2022, 07/13, 08/22/2020, Additional history exists Diabetes: HGBA1C 01/14/2024 07/16/2023, , 05/11/2023, Additional history exists COVID-19 [...] ALBUMIN/CREAT RATIO Routine 07/16/2023 9 :29 AM AIRCRAFT LOG CLERK Type 2 diabetes mellitus without complication, without long-term current use of insulin ([facility]) HGB A1C Routine 07/16/2023 9:27 AM AIRCRAFT LOG CLERK Type 2 diabetes mellitus without complication, without long-term current use of insulin ([facility]) BASIC METABOLIC PANEL Routine 07/11/2023 7:40 AM AIRCRAFT LOG CLERK MM MAMMOGRAM DIAG BILAT W 3D LIAM Routine 08/13/2022 1:58 PM AIRCRAFT LOG CLERK Breast pain, right Mass of right breast, unspecified quadrant LIPID PANEL & DIRECT LDL (IF NEEDED) Routine 06/01/2022 12:59 PM AIRCRAFT LOG CLERK Routine health maintenance Hyperlipidemia, unspecified hyperlipidemia type COLONOSCOPY Routine 11/21/2020 9:30 AM CDT Screen for colon cancer HIV 1/2 AG/AB 4TH GEN Routine 06/29/2019 8:40 AM AIRCRAFT LOG CLERK Routine health maintenance Screening for HIV (human immunodeficiency virus) HEPATITIS C ANTIBODY, WITH REFLEX Routine 06/29/2019 8:40 AM AIRCRAFT LOG CLERK Routine health maintenance Need for hepatitis C screening test from Last 3 Months or Most Recently Relevant to Health Maintenance Results * (ABNORMAL) Albumin/Creatinine Ratio,Random Urine (07/16/2023 9:29 AM AIRCRAFT LOG CLERK) Albumin/Creati nine Ratio, Urine, Random 254(H) <30 mg/g 07/16/2023 11:43 AM [facility] Albumin, Urine, Random 241.5 mg/L 07/16/2023 11:43 AM [facility] Creatinine, Urine, Random 95 >20 mg/dL mg/dL 07/16/2023 11:43 AM [facility] Urine Non-blood Collection / Unknown 07/16/2023 9:29 AM AIRCRAFT LOG CLERK 07/16/2023 9:29 AM AIRCRAFT LOG CLERK Gopal Varghese DO LAB_1 Performing Organization Address [facility] de Phone Number [facility] [address] [id number], [facility] [phone] * (ABNORMAL) Hgb A1C (07/16/2023 9:27 AM AIRCRAFT LOG CLERK) Hemoglobin A1C 7.6(H) <=5.6 % 07/16/2023 1:02 PM AIRCRAFT LOG CLERK [facility] Estimated Average Glucose (Calc) 171 < 117 mg/dL 07/16/2023 1:02 PM [facility] Comment:Estimated average gl ucose (eAG) converts A1c into glucose units (mg/dL) and estimates average glucose over the past approximately 3 months. The eAG reference interval (<117 mg/dL) corresponds to an A1c of <5.7%. Blood Venipuncture / Unknown 07/16/2023 9:27 AM AIRCRAFT LOG CLERK 07/16/2023 9:27 AM AIRCRAFT LOG CLERK Narrative [facility] - 07/16/2023 1:02 PM AIRCRAFT LOG CLERK For patients not previously diagnosed with diabetes: 5.7-6.4%: Increased risk for diabetes 6.5% and greater: Diagnostic for diabetes For patients diagnosed with diabetes: <8.0%: Goal of therapy for ages 18-75 Clinicians may recommend a higher or lower goal for specific individuals. Gopal Varghese DO LAB_1 Performing Organization Address [facility] Co de Phone Number [facility] [address] [address], [facility] [phone] * (ABNORMAL) Basic Metabolic Panel (07/11/2023 7:40 AM AIRCRAFT LOG CLERK) Sodium 140 136 - 145 mmol/L 07/11/2023 8:22 AM [facility] Potassium 3.9 3.5 - 5.1 mmol/L 07/11/2023 8:22 AM [facility] Chloride 106 98 - 109 mmol/L 07/11/2023 8:22 AM [facility] CO2 25 20 - 29 mmol/L 07/11/2023 8:22 AM [facility] Anion Gap 9 7 - 16 mmol/L 07/11/2023 8:22 AM [facility] Calcium 9.1 8.4 - 10.4 mg/dL 07/11/2023 8:22 AM [facility] BUN 9 7 - 26 mg/dL 07/11/2023 8:22 AM [facility] Creatinine 0.64 0.55 - 1.02 mg/dL 07/11/2023 8:22 AM [facility] Glucose 116(H) 70 - 100 mg/dL 07/11/2023 8:22 AM [facility] Comment:The given reference range is for the fasting state. Non-fasting reference range for glucose is 70 - 180 mg/dL. GFR, Estimated >60 >60 mL/min/1.7 3m2 07/11/2023 8:22 AM [facility] Blood Venipuncture / Unknown 07/11/2023 7:40 AM AIRCRAFT LOG CLERK 07/11/2023 7:46 AM AIRCRAFT LOG CLERK Nba Herrera MD LAB_1 Performing Organization Address City/State/[facility] Co de Phone Number [address] [phone] * MM Mammogram Diag Bilat W 3D Liam (08/13/2022 1:58 PM AIRCRAFT LOG CLERK) Anatomical Region Laterality Modality Breast Bilateral Mammography 08/13/2022 1:58 PM AIRCRAFT LOG CLERK Narrative 08/13/2022 2:37 PM AIRCRAFT LOG CLERK EXAM: MM MAMMOGRAM DIAG BILAT W 3D LIAM, MM US BREAST RT LOCATION: [facility] DATE/TIME: 08/13/2022 1:58 PM INDICATION: 61-year-old [...] of the area of patient's pain, with food service representative images obtained at 1:00 8 cm [...] 3D LIAM, MM US BREAST RT LOCATION: [facility] DATE/TIME: 08/13/2022 1:58 PM INDICATION: 61-year-old [...] Ultrasound of the area of patient'[place], with food service representative images obtained at 1:00 8 cm [...] and Direct LDL(If Needed) (06/01/2022 12:59 PM AIRCRAFT LOG CLERK) Cholesterol 158 0 - 199 mg/dL 06/01/2022 5:37 PM AIRCRAFT LOG CLERK [facility] Triglyceride 78 <=149 mg/dL 06/01/2022 5:37 PM AIRCRAFT LOG CLERK [facility] HDL Cholesterol 53 >=40 mg/dL 06/01/2022 5:37 PM AIRCRAFT LOG CLERK [facility] LDL, Calculated 89 <130 mg/dL 06/01/2022 5:37 PM AIRCRAFT LOG CLERK [facility] Non HDL Chol, Calculated 105 <=159 mg/dL 06/01/2022 5:37 PM AIRCRAFT LOG CLERK [facility] Cholesterol/HDL Ratio 3.0 06/01/2022 5:37 PM AIRCRAFT LOG CLERK [facility] Hours Fasting 1 06/01/2022 5:37 PM AIRCRAFT LOG CLERK [facility] Blood Venipuncture / Unknown 06/01/2022 12:59 PM AIRCRAFT LOG CLERK 06/01/2022 12:59 PM AIRCRAFT LOG CLERK Gopal Varghese DO LAB_1 Performing Organization Address City/State/[facility] Co de Phone Number [facility] [address] [phone] [facility] [address] [place] [phone], [place] [phone] * Colonoscopy (ProVation order) (11/21/2020 9:30 AM CDT) 11/21/2020 9:30 AM CDT Narrative GI (PROVATION) - 11/21/2020 10:18 AM CDT Instrument Name: [id number] Indications: High risk colon [...] there are any questions, please contact the junior systems engineer. - Repeat colonoscopy in 2 years for surveillance. - Return to referring physician as previously scheduled. - Patient's sedation for a repeat study will require Anesthesia staff assistance. Procedure Code(s): --- Professional --- 64733, 22,PT 03765, 59,PT --- Technical --- [address], [place] [address], 59,PT Diagnosis Code(s): --- Professional --- K63.5 Z12.11 Z86.010 K57.30 --- Technical --- K63.5 Z12.11 Z86.010 K57.30 CPT copyright 2019 [employer]. All rights reserved. The codes documented in this report are preliminary and upon hims coder review may be revised to meet current [...] there are any questions, please contact the junior systems engineer. - Repeat colonoscopy in 2 years for surveillance. - Return to referring physician as previously scheduled. - Patient's sedation for a repeat study will require Anesthesia staff assistance. Procedure Code(s): --- Professional --- 39199, 22,PT 42892, 59,PT --- Technical --- [address], [place] [address], 59,PT Diagnosis Code(s): --- Professional --- K63.5 Z12.11 Z86.010 K57.30 --- Technical --- K63.5 Z12.11 Z86.010 K57.30 CPT copyright 2019 [employer]. All rights reserved. The codes documented in this report are preliminary and upon hims coder review may be revised to meet current compliance requirements. Attending Participation: MD Ruben Rodriguez MD 11/21/2020 10:18:12 AM This report has been signed electronically. Number of Addenda: 0 Note Initiated On: 11/21/2020 9:30 AM Ruben Enriquez MD [facility] ([place], [place] * HIV 1/2 Ag/Ab 4th Generation (06/29/2019 8:40 AM AIRCRAFT LOG CLERK) HIV 1/2 Antigen/Anti body (4th generation) Negative (Non Reactive) Negative (Non Reactive) 06/29/2019 1:10 PM AIRCRAFT LOG CLERK [facility] Comment:HIV-1 p24 Antigen an d HIV-1/HIV-2 Antibody not detected Blood Venipuncture / Unknown 06/29/2019 8:40 AM AIRCRAFT LOG CLERK 06/29/2019 8:41 AM AIRCRAFT LOG CLERK Gopal Varghese DO LAB_1 Performing Organization Address City/[facility]/ZIP Co de Phone Number [facility] [address] [phone] * HEP C recommended for patients born between 0973-1165 (06/29/2019 8:40 AM AIRCRAFT LOG CLERK) Hepatitis C Antibody Negative (Non Reactive) Negative (Non Reactive) 06/29/2019 1:09 PM AIRCRAFT LOG CLERK [facility] Comment:Antibodies to HCV no t detected. Does not exclude the possiblity of exposure to HCV. Blood Venipuncture / Unknown 06/29/2019 8:40 AM AIRCRAFT LOG CLERK 06/29/2019 8:41 AM AIRCRAFT LOG CLERK Gopal Varghese DO LAB_1 [facility] [address] [address], [facility] [phone] from Last 3 Months or Most Recently Relevant to Health Maintenance Advance Directives * Full Code (Latest Code Status on File) Date Activated Date Inactivated Comments 07/09/2023 4:27 PM 07/11/2023 4:21 PM Care Teams Rubber Stamp Maker Relationship Specialty Start Date End Date Gopal Varghese DO [address] [place] [address] PCP - General Family Practice 05/29/19
--- NOTE | 2024-08-05 11:09 | ED.GENADULT ---
HPI - General Adult General Date Seen: 08/05/24 Chief complaint: Abdominal Pain Stated complaint: Abdominal Pain, Nausea Time Seen by Provider: 08/05/24 11:09 History of Present Illness HPI narrative: 63-year-old female presenting to the emergency room presenting to the ER today with abdominal cramping, nausea and vomiting, diarrhea since last night. She has a past medical history of diabetes, hypertension, depression/anxiety, history of COPD, former tobacco use, history of lung cancer now status post partial lung resection (in remission). Her son was diagnosed with H pylori yesterday. She developed symptoms yesterday around 6:00 p.m.. She was feeling normal yesterday. She actually took her for a back operation-8. Around 6:00 p.m. she started think she might be just hungry with an ache in her upper stomach. She tried to eat dinner but it did not help and she actually threw up her dinner. She has had continuous nausea since then. She has had at least 4 episodes of emesis and has been throwing up ?something brown. ?. She has also had some diarrhea. It sounds like her diarrhea is been liquidy and brown but not bloody or black. She has not had a fever. She also developed a wet sounding cough since yesterday. She is having continuous abdominal pain. 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 Follow-up MRCP confirmed dilation of the common bile duct which was thought to be likely reservoir effect from previous cholecystectomy) surgical history includes appendectomy, cholecystectomy, EGD (no record with a found in her chart from [facility]) Related Data Home Medications ?Medication ?Instructions ?Recorded ?Confirmed amlodipine 10 mg tablet 10 mg PO DAILY 02/26/24 06/10/24 atorvastatin 40 mg tablet 40 mg PO DAILY 02/26/24 06/10/24 budesonide-formoterol HFA 160 1 inh inhalation BID 02/26/24 06/10/24 mcg-4.5 mcg/actuation aerosol inhaler (Symbicort) gabapentin 300 mg capsule 300 mg PO TID 02/26/24 06/10/24 ipratropium-albuterol inhalation 02/26/24 lisinopril 20 mg tablet 20 mg PO DAILY 02/26/24 06/10/24 metformin 500 mg tablet 1,000 mg PO DAILY 02/26/24 06/10/24 ipratropium 0.5 mg-albuterol 3 mg 3 ml inhalation QID 06/10/24 06/10/24 (2.5 mg base)/3 mL nebulization soln varenicline tartrate 0.5 mg (11)-1 1 ea PO DIRECTED 06/10/24 06/10/24 mg (42) tablets in a dose pack Previous Rx's ?Medication ?Instructions ?Recorded albuterol sulfate 90 mcg/actuation 2 inh inhalation Q2H PRN dyspnea 06/10/24 breath activated powder inhaler #2 ea azithromycin 250 mg tablet See Rx Instructions PO .COMPLEX #6 06/10/24 tabs inhalational spacing device #1 ea 06/10/24 (BreatheRite MDI Spacer) ipratropium 0.5 mg-albuterol 3 mg 3 ml inhalation Q6H PRN shortness 06/10/24 (2.5 mg base)/3 mL nebulization of breath or wheezing #180 mL soln prednisone 20 mg tablet 20 mg PO BID #10 tabs 06/10/24 Allergies Allergy/AdvReac Type Severity Reaction Status Date / Time bismuth subsalicylate Allergy Severe Anaphylaxis Verified 08/05/24 11:51 ciprofloxacin Allergy Severe Anaphylaxis Verified 08/05/24 11:51 PFSH PFSH Social History Smoking Status: Former smoker Second hand tobacco smoke exposure: No How often do you have a drink containing alcohol: never How often do you have six or more drinks on one occasion: Never AUDIT-C Alcohol total score: 0 Non-prescribed substance use: denies use service: No Exam Narrative: Exam Narrative: Constitutional: Appears well-developed and well-nourished. She is alert, anxious, moaning and speaking loudly. Saying ?0h God make it stop!? Despite her groaning, she is able to provide a fairly accurate history. After medications[] HENT: Head: Atraumatic. Nose: Nose normal. Mouth/Throat: Oral mucosa is clear and moist. no trismus. Pharynx normal. Tonsils symmetric. No tonsillar enlargement, erythema, or exudate. Eyes: Conjunctivae normal. EOM normal. Pupils equal, round, and reactive to light. No scleral icterus. Neck: Normal range of motion. Neck supple. No tracheal deviation present. Cardiovascular: Normal rate, regular rhythm. No gallop. No friction rub. No murmur heard. Symmetric radial artery pulses Pulmonary/Chest: Effort normal. No stridor. No respiratory distress. No wheezes. No rales. No rhonchi . No tenderness. Abdominal: Soft. Bowel sounds normal. No distension. No mass. No tenderness. No rebound. No guarding. Musculoskeletal: RUE: Normal range of motion. No tenderness. No deformity LUE: Normal range of motion. No tenderness. No deformity RLE: Normal range of motion. No edema. No tenderness. No deformity LLE: Normal range of motion. No edema. No tenderness. No deformity Lymph: No cervical adenopathy. Neurological: Alert and oriented to person, place, and time. Normal strength. CN II-VII intact. No sensory deficit. GCS eye subscore is 4. GCS verbal subscore is 5. GCS motor subscore is 6. Normal coordination Skin: Skin is warm and dry. No rash noted. No pallor. Normal capillary refill. Psychiatric: Normal mood. Normal affect. Const: Vital Signs, click to edit/add: Vital Signs - 24 hr 08/05/24 10:56 08/05/24 11:11 08/05/24 11:15 Temperature 98.9 F Pulse Rate 63 60 Pulse Rate [Pulse Oximeter] 64 Respiratory Rate 22 Blood Pressure Blood Pressure [Ri [facility] [place]] 171/119 H Pulse Oximetry 98 97 96 Oxygen Delivery Me thod Room Air Oxygen Flow Rate 08/05/24 11:30 08/05/24 11:31 08/05/24 11:32 Temperature Pulse Rate 80 57 L 69 Pulse Rate [Pulse Oximeter] Respiratory Rate 40 H Blood Pressure 101/50 L Blood Pressure [Ri [facility] [place]] Pulse Oximetry 93 92 92 Oxygen Delivery Me thod Room Air Oxygen Flow Rate 08/05/24 11:45 08/05/24 11:48 08/05/24 11:51 Temperature Pulse Rate 63 Pulse Rate [Pulse Oximeter] Respiratory Rate 20 Blood Pressure Blood Pressure [Ri ght Upper Arm] Pulse Oximetry 85 L 92 Oxygen Delivery Me thod Room Air Nasal Cannula Nasal Cannula Oxygen Flow Rate 2 2 08/05/24 12:12 08/05/24 12:13 08/05/24 12:15 Temperature Pulse Rate 106 H 67 96 Pulse Rate [Pulse Oximeter] Respiratory Rate 22 Blood Pressure 126/90 H Blood Pressure [Ri ght Upper Arm] Pulse Oximetry 97 95 94 Oxygen Delivery Me thod Nasal Cannula Oxygen Flow Rate 2 08/05/24 12:18 08/05/24 12:30 08/05/24 12:32 Temperature Pulse Rate 101 H 109 H 94 Pulse Rate [Pulse Oximeter] Respiratory Rate 22 Blood Pressure 125/69 131/71 Blood Pressure [Ri ght Upper Arm] Pulse Oximetry 90 93 93 Oxygen Delivery Me thod Room Air Nasal Cannula Oxygen Flow Rate 1 08/05/24 12:38 Temperature Pulse Rate Pulse Rate [Pulse Oximeter] Respiratory Rate Blood Pressure Blood Pressure [Ri ght Upper Arm] Pulse Oximetry 94 Oxygen Delivery Me thod Nasal Cannula Oxygen Flow Rate 1 Course Course ED Course: Recheck-pain 7 improved after Dilaudid. Had more nausea and vomiting and CT scan which caused delay of imaging, beyond the optimal time after IV contrast administration. Images were obtained. Patient brought back to ER room 1 and we administered Reglan with Benadryl Reevaluation(s) Reevaluation #1: Recheck-resting more comfortably, nausea improved. Pain is improved but not resolved. Still coughing. Nurses noted oxygen sats in the high 80s. Had been in the low 90s when she 1st arrived. Suspect there worse as a combination of respiratory illness are and also sedation from the Dilaudid, Benadryl, meds. Reevaluation #2: One the recheck-over or oxygen sat 91% on 1 L nasal cannula. I took her off nasal cannula again to see if sats would improved. Sats again dropped down to 88-89% on room air. I placed her back on 2 L and sats rebounded up to 94%. Lung sounds really not wheezy at this point. A few rales in the right lower lung field. Reevaluation #3: Recheck-having some recurrent abdominal pain. Additional blood Consultations Consultation #1: Recheck-discussed with hospitalist, Dr. Perez, who graciously accepts for admission. Vital Signs Vital signs: Initial Vital Signs Temperature 98.9 F 08/05/24 10:56 Temperature Source Temporal Artery Scan 08/05/24 10:56 Pulse Rate 64 08/05/24 10:56 Respiratory Rate 22 08/05/24 10:56 Blood Pressure 171/119 H 08/05/24 10:56 Blood Pressure Mean 136 H 08/05/24 10:56 Pulse Oximetry 98 08/05/24 10:56 Oxygen Delivery Method Room Air 08/05/24 10:56 Vital Signs Temperature 98.9 F 08/05/24 10:56 Pulse Rate 64 08/05/24 10:56 Respiratory Rate 22 08/05/24 10:56 Blood Pressure 171/119 H 08/05/24 10:56 Pulse Oximetry 98 08/05/24 10:56 Oxygen Delivery Method Room Air 08/05/24 10:56 Temperature 98.9 F 08/05/24 10:56 Pulse Rate 94 08/05/24 12:32 Respiratory Rate 22 08/05/24 12:18 Blood Pressure 131/71 08/05/24 12:32 Pulse Oximetry 94 08/05/24 12:38 Oxygen Delivery Method Nasal Cannula 08/05/24 12:38 Oxygen Flow Rate 1 08/05/24 12:38 Medications Administered Medications: Generic Name Dose Route Start Last Admin Trade Name Freq PRN Reason Stop Dose Admin Hydromorphone HCl 0.5 mg 08/05/24 11:24 08/05/24 11:31 Hydromorphone 0.5 Mg/0.5 Ml Inj IVP 0.5 mg Q1H PRN Administration Pain Hydromorphone HCl 0.5 mg 08/05/24 14:37 08/05/24 14:57 Hydromorphone 0.5 Mg/0.5 Ml Inj IVP 0.5 mg Q1H PRN Administration Pain Discontinued Medications Generic Name Dose Route Start Last Admin Trade Name Freq PRN Reason Stop Dose Admin Diphenhydramine HCl 12.5 mg 08/05/24 12:05 08/05/24 12:14 Diphenhydramine 50 Mg/Ml Inj IVP 08/05/24 12:06 12.5 mg ONCE ONE Administration Sodium Chloride 1,000 mls @ 1,000 mls/hr 08/05/24 11:30 08/05/24 14:36 0.9 % Sodium Chloride 1000 Ml IV 08/05/24 12:29 Infused .Q1H DELL Infusion Azithromycin 500 mg/ Sodium 255 mls @ 255 mls/hr 08/05/24 13:58 08/05/24 15:03 Chloride IVPB 08/05/24 13:59 255 mls/hr ONCE ONE Administration Ceftriaxone Sodium 1 gm/ 100 mls @ 200 mls/hr 08/05/24 13:58 08/05/24 15:02 Sodium Chloride IVPB 08/05/24 13:59 Infused ONCE ONE Infusion Sodium Chloride 500 mls @ 500 mls/hr 08/05/24 13:59 08/05/24 14:32 0.9 % Sodium Chloride 500 Ml IV 08/05/24 14:58 500 mls/hr .Q1H ONE Administration Metoclopramide HCl 10 mg 08/05/24 12:05 08/05/24 12:14 Metoclopramide Hcl 5 Mg/Ml Inj IVP 08/05/24 12:06 10 mg ONCE ONE Administration Ondansetron HCl 4 mg 08/05/24 11:24 08/05/24 11:31 Ondansetron 2 Mg/Ml Inj IVP 08/05/24 11:25 4 mg ONCE ONE Administration Medical Decision Making MDM Narrative Medical decision making narrative: Presented to the Emergency Department with nausea, repetitive vomiting, small volume diarrhea, along with generalized abdominal pain , maximum in the upper abdomen. The differential diagnosis of abdominal pain includes: Appendicitis, Bowel Obstruction, Ulcer, Ischemia, Cholecystitis, choledocholithiasis, Diverticulitis, Pancreatitis, UTI, kidney stone, Enteritis/Colitis, amongst many other etiologies. Her son was also diagnosed with Helicobacter pylori yesterday. Overall symptoms would be unusual for acute peptic ulcers disease. CBC, CMP, lipase are normal. Laboratory testing does not reveal a cause for the patient's pain. Abdominal CT Imaging does not really give a good explanation for her pain. There is no evidence for colitis, diverticulitis, obstruction, perforated ulcer. She is status post cholecystectomy and appendectomy as well as status post hysterectomy. It is possible that her vomiting, diarrhea, and abdominal pain are related to some sort of viral illness. She notes that her 12-year-old son also was diagnosed with H pylori based on the stool test yesterday. At this point with acute onset of symptoms including vomiting, diarrhea, pain, this seems to be unlikely for peptic ulcer disease. If she has any more stool, we will send the H pylori stool antigen. She also has symptoms of a wet sounding cough that began yesterday. Nasal swab is negative for COVID in influenza. No wheezing or bronchospasm. Abdominal CT is obtained and does show evidence for a right mid lobe infiltrate, which is potentially a community-acquired pneumonia. 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 She was not previously aware of any lung herniation. At this point she will require hospitalization to treat her pneumonia. Started on Rocephin and Zithromax here in the ER today. Oxygen sats are Lue borderline low with 88-89% on room air, but came up nicely to the mid 90s with 2 L nasal cannula. She is not requiring positive-pressure ventilation or intubation at this time and I think she is stable for admission to the medical floor. She would need outpatient follow-up with PCP and/or her thoracic surgeon for recheck with regard to her lung hernia. At this point since it is not causing symptomatic pain and she has not had recurrent bouts of pneumonia, I do not think she needs transfer to a tertiary facility for immediate thoracic surgery evaluation. Discussed with our hospitalist, Dr. Perez, a day I who graciously accepts for admission. Lab Data Labs: Lab Results 08/05/24 08/05/24 08/05/24 Range/Units 11:15 11:30 12:38 WBC 8.24 (4.50-11.00) K/uL RBC 4.61 (4.00-5.20) m/uL Hgb 14.2 (12.0-16.0) gm/dL Hct 43.9 (33.0-51.0) % MCV 95 (80-100) fL MCH 31 (26-34) pg MCHC 32 (32-36) gm/dL RDW Coeff of Nahum 13.3 (11.5-15.5) % Plt Count 363 (140-440) K/uL Neut % (Auto) 70.7 (42.0-72.0) % Lymph % (Auto) 18.9 L (20-44) % Crowley % (Auto) 7.2 (0.0-11.0) % Eos % (Auto) 2.8 (0.0-7.0) % Baso % (Auto) 0.2 (0.0-3.0) % Neut # (Auto) 5.82 (1.7-7.0) K/uL Lymph # (Auto) 1.60 (0.90-2.90) K/uL Crowley # (Auto) 0.60 (0.00-0.90) K/UL Eos # (Auto) 0.23 (0.00-0.50) K/uL Baso # (Auto) 0.02 (0.00-0.30) K/uL Abs Immat Gran (auto) 0.02 (0.00-0.30) K/uL Imm/Tot Granulo (auto) 0.2 % Sodium 139 (135-149) mmol/L Potassium 4.4 (3.6-5.1) mmol/L Chloride 104 (96-114) mmol/L Carbon Dioxide 26 (20-32) mmol/L Anion Gap 9 (7-15) mEq/L BUN 18 (7-30) mg/dL Creatinine 0.7 (0.5-1.5) mg/dL Estimated Creat Clear 51.14 Estimated GFR 97 ml/min Glucose 117 H (60-115) mg/dL Lactate 1.1 (0.5-1.9) mmol/L Calcium 9.6 (8.4-10.6) mg/dL Total Bilirubin 0.5 (0.1-1.5) mg/dL AST 26 (12-35) U/L ALT 19 (4-35) U/L Alkaline Phosphatase 78 (40-150) U/L Troponin I < 0.01 L (0.01-0.04) ng/mL Total Protein 7.4 (6.0-8.3) g/dL Albumin 4.4 (3.3-5.0) g/dL Lipase 49 (23-300) U/L Urine Color (Yellow) Urine Appearance (Clear) Urine pH (5.0-8.5) Ur Specific [place] (1.000-1.030) Urine Protein (Negative) Urine Glucose (UA) (Negative) Urine Ketones (Negative) Urine Blood (Negative) Urine Nitrite (Negative) Urine Bilirubin (Negative) Urine Urobilinogen (0.2-1.0) Ur Leukocyte Esterase (Negative) Urine RBC (0-2) Urine WBC (0-5) Ur Squamous Epith Cells (None-Few) Urine Bacteria (None) SARS-CoV-2 (PCR) Negative SARS-CoV-2 (Negative) Influenza Type A (PCR) Negative PCR FLU A (Negative) Influenza Type B (PCR) Negative PCR FLU B (Negative) POC Creatinine 0.8 (0.6-1.3) mg/dl 08/05/24 Range/Units 13:13 WBC (4.50-11.00) K/uL RBC (4.00-5.20) m/uL Hgb (12.0-16.0) gm/dL Hct (33.0-51.0) % MCV (80-100) fL MCH (26-34) pg MCHC (32-36) gm/dL RDW Coeff of Nahum (11.5-15.5) % Plt Count (140-440) K/uL Neut % (Auto) (42.0-72.0) % Lymph % (Auto) (20-44) % Crowley % (Auto) (0.0-11.0) % Eos % (Auto) (0.0-7.0) % Baso % (Auto) (0.0-3.0) % Neut # (Auto) (1.7-7.0) K/uL Lymph # (Auto) (0.90-2.90) K/uL Crowley # (Auto) (0.00-0.90) K/UL Eos # (Auto) (0.00-0.50) K/uL Baso # (Auto) (0.00-0.30) K/uL Abs Immat Gran (auto) (0.00-0.30) K/uL Imm/Tot Granulo (auto) % Sodium (135-149) mmol/L Potassium (3.6-5.1) mmol/L Chloride (96-114) mmol/L Carbon Dioxide (20-32) mmol/L Anion Gap (7-15) mEq/L BUN (7-30) mg/dL Creatinine (0.5-1.5) mg/dL Estimated Creat Clear Estimated GFR ml/min Glucose (60-115) mg/dL Lactate (0.5-1.9) mmol/L Calcium (8.4-10.6) mg/dL Total Bilirubin (0.1-1.5) mg/dL AST (12-35) U/L ALT (4-35) U/L Alkaline Phosphatase (40-150) U/L Troponin I (0.01-0.04) ng/mL Total Protein (6.0-8.3) g/dL Albumin (3.3-5.0) g/dL Lipase (23-300) U/L Urine Color Light yellow (Yellow) Urine Appearance Clear (Clear) Urine pH 5.5 (5.0-8.5) Ur Specific [place] 1.015 (1.000-1.030) Urine Protein Negative (Negative) Urine Glucose (UA) Negative (Negative) Urine Ketones Negative (Negative) Urine Blood 2+ A (Negative) Urine Nitrite Negative (Negative) Urine Bilirubin Negative (Negative) Urine Urobilinogen 0.2 (0.2-1.0) Ur Leukocyte Esterase Negative (Negative) Urine RBC 0-2 (0-2) Urine WBC 2-5 (0-5) Ur Squamous Epith Cells Few (None-Few) Urine Bacteria Few A (None) SARS-CoV-2 (PCR) (Negative) Influenza Type A (PCR) (Negative) Influenza Type B (PCR) (Negative) POC Creatinine (0.6-1.3) mg/dl Imaging Data CT scan - abdomen: Attestation: I have reviewed the pertinent imaging results. Radiologist's impression: IMPRESSION: 1. There is a focal infiltrate within the middle of the right lung. There is a small herniation of right middle lobe lung tissue between ribs of the right anterior chest. 2. Status post cholecystectomy. Mild intra and extra hepatic biliary dilation most likely due to a reservoir effect from the previous cholecystectomy. 3. Moderate colonic diverticulosis without diverticulitis. ECG Data Attestation: I personally reviewed and interpreted this ECG as follows: Interpretation: Sinus tachycardia with frequent premature ventricular contractions Rate: 1 0 set TX: 158. No delta wave QRS axis: Normal axis. No pathologic Q-waves. ST segment/T wave: No ST segment elevation or depression. QTc: 451 Discharge Plan Discharge Clinical Impression: Pneumonia, Abdominal pain, Hypoxia, Vomiting, Diarrhea Patient Disposition: Admitted As Observation
--- NOTE | 2024-08-05 11:24 | CRLHL7_ITS ---
For Patients: As a result of the Century Cures Act, medical imaging exams and procedure reports are released immediately into your electronic medical record. You may view this report before your referring provider. If you have questions, please contact your health care provider. INDICATION: Abdominal pain, vomiting and nausea. TECHNIQUE: Axial intravenously infused CT cuts were performed from above the diaphragm to the inferior pubic rami. 69 mL of Isovue-370 was injected intravenously. FINDINGS: There is an infiltrate within the middle lobe of the right lung. There is a small herniation of the middle lobe of the right lung between anterior ribs. There has been a cholecystectomy. There is mild intra and extrahepatic biliary dilation most likely due to a reservoir effect from the previous cholecystectomy. The liver parenchyma appears normal. The spleen, pancreas, adrenals and kidneys appear normal. There is moderate colonic diverticulosis. The small bowel appears normal. The appendix is not identified with certainty. There are no pericecal inflammatory changes. There is no free intraperitoneal air or fluid. There are no enlarged retroperitoneal or mesenteric lymph nodes. There has been a hysterectomy. The urinary bladder appears normal. There is no iliac or inguinal lymphadenopathy. There are no lytic or sclerotic skeletal lesions. IMPRESSION: 1. There is a focal infiltrate within the middle of the right lung. There is a small herniation of right middle lobe lung tissue between ribs of the right anterior chest. 2. Status post cholecystectomy. Mild intra and extra hepatic biliary dilation most likely due to a reservoir effect from the previous cholecystectomy. 3. Moderate colonic diverticulosis without diverticulitis. Please note that all CT scans at this facility use dose modulation, iterative reconstruction, and/or weight-based dosing when appropriate to reduce radiation dose to as low as reasonably achievable. Dictated by Robb Jacques MD @ 08/05/2024 1:01:21 PM (Electronically Signed)
[2024-08-05 11:31] LABS: Lactate* 1.1 mmol/L (0.5-1.9)
[2024-08-05] MEDS: HYDROmorphone 0.5 mg/0.5 ml inj IVP ×4 (11:31→20:49)
[2024-08-05] MEDS: 0.9 % SODIUM CHLORIDE 1000 ml 1,000 ML IV (11:31)
[2024-08-05] MEDS: ONDANSETRON 2 MG/ML inj 4 MG IVP (11:31)
[2024-08-05 11:32] LABS: Basophils Absolute Auto 0.02 K/uL (0.00-0.30); Basophils Percent Auto 0.2 % (0.0-3.0); Eosinophils Absolute Auto 0.23 K/uL (0.00-0.50); Eosinophils Percent Auto 2.8 % (0.0-7.0); Hematocrit 43.9 % (33.0-51.0); Hemoglobin* 14.2 gm/dL (12.0-16.0); Immature Granulocytes Abs Auto 0.02 K/uL (0.00-0.30); Immature Granulocytes Pct Auto 0.2 %; Lymphocytes Percent Auto 18.9 % (20-44); Mean Corpuscular HGB Conc 32 gm/dL (32-36); Mean Corpuscular Hemoglobin 31 pg (26-34); Mean Corpuscular Volume 95 fL (80-100); Monocytes Percent Auto 7.2 % (0.0-11.0); Neutrophils Absolute Auto 5.82 K/uL (1.7-7.0); Neutrophils Percent Auto 70.7 % (42.0-72.0); Platelet Count* 363 K/uL (140-440); RDW Coefficient of Variation % 13.3 % (11.5-15.5); Red Blood Count 4.61 m/uL (4.00-5.20); White Blood Count* 8.24 K/uL (4.50-11.00)
[2024-08-05 11:38] LABS: Slide Review Reflex No
--- OUTSIDE RECORDS SUMMARY | 2024-08-05 11:44 | XMS_ITS | CCD ---
Author Name Interface, [id number] lity Address [address] [address] Organization [facility] Address [address] [address] Care Team Providers Care Crystal Slicer Name Role Phone Rico Ortega Unavailable Unavailable [...]
--- OUTSIDE RECORDS SUMMARY | 2024-08-05 11:44 | XMS_ITS | CCD ---
Author Name Interface, [id number] lity Address [address] [address] Organization [facility] Address [address] [address] Care Team Providers Care Route Driver Name Role Phone Rico Ortega Unavailable Unavailable [...]
--- OUTSIDE RECORDS SUMMARY | 2024-08-05 11:44 | XMS_ITS | Clinical Summary ---
Author Organization [employer] [facility] Address [place], [place] [address] Care Team Providers Care Editor Farm Journal Name Role Phone Ainsley Pereyra MD Unavailable [...] 300 mL 05/12/20 Active nebulizer and compressor ([facility] PulmoNeb LT Comp-Neb)Indicat ions:COPD with acute exacerbation [...] Department Care Team Description 06/23/2024 Nurse Triage [facility] Centralized Nurse Triage Pcp, No Difficulty Breathing 06/10/2024 Orders Only [facility] Scanner 1 scan: (1-Ord) [facility] CHEST 2V, 06/10/2024 05/29/2024 11:05 AM WOOD FILLER Office Visit [facility] [address] [place] [address] Alma Hale MD Medication Management 05/29/2024 Travel 05/22/2024 11:15 AM WOOD FILLER Office Visit [facility] [address] [place] [address] Melina Solorio MD COPD (Started few days ago, more with activity) 05/22/2024 Travel 05/14/2024 Refill [facility] [address] [place] [address] Alma Hale MD Refill Request (Gabapentin) from [...] on file Legal Sex Female 6:32 AM WOOD FILLER Gender Identity Not on file Sexual Orientation [...] Comments Blood Pressure 124/78 05/29/2024 11:16 AM WOOD FILLER Pulse 100 05/29/2024 11:16 AM WOOD FILLER Temperature 36.8 C (98.2 F) 10/19/2023 8:00 AM CDT Respiratory Rate 30 05/22/2024 11:15 AM WOOD FILLER Oxygen Saturation 97% 05/29/2024 11:16 AM WOOD FILLER Inhaled Oxygen Concentration - - Weight 67.2 [...] Díaz MD Medical Devices Implanted Type Area Mechanical Press Operator Device Identifier Shelf Expiration Date Model / Serial / Lot Cmnt Bone 40g Simplex P Non Atb Mv - [id number] Implanted:Qty: 1 on 03/06/2014 by Jassi Raymundo MD at [facility] Right: Knee [employer] 06/10/2016 6191-1-01 0# / / [id number] Cmnt Bone 40g Simplex P Non Atb Mv - [id number] Implanted:Qty: 1 on 03/06/2014 by Jassi Raymundo MD at [facility] Right: Knee [employer] 07/11/2016 6191-1-01 0# / / [id number] Baseplate Tib Sz4 [employer] Ret Pe - [id number] Implanted:Qty: 1 on 03/06/2014 by Jassi Raymundo MD at [facility] Right: Knee [employer] 10/09/2018 5520-B-40 0# / / [id number] Fem Rt Sz3 [employer] Ret Co Cr - [id number] Implanted:Qty: 1 on 03/06/2014 by Jassi Raymundo MD at [facility] Right: Knee [employer] 01/08/2019 5510-F-30 2# / / [id number] Insert Knee Sz4 9mm Tri[employer] Ret X3 - [id number] Implanted:Qty: 1 on 03/06/2014 by Jassi Raymundo MD at [facility] Right: Knee [employer] 08/11/2018 5530-G-40 9# / / [id number] Patella 29x9mm [employer] Asymmetric X3 - [id number] Implanted:Qty: 1 on 03/06/2014 by Jassi Raymundo MD at [facility] Right: Knee [employer] 12/09/2018 5551-G-29 9# / / [id number] Fem Lt Sz3 [employer] Ret Co Cr - [id number] Implanted:Qty: 1 on 11/19/2016 by Orion Cheng MD at [facility] Left: Knee [employer] 08/12/2021 5510-F-30 1# / / [id number] Baseplate Tib Sz4 [employer] Pe - [id number] Implanted:Qty: 1 on 11/19/2016 by Orion Cheng MD at [facility] Left: Knee [employer] 11/08/2021 5521-B-40 0# / / [id number] Patella 29x9mm [employer] Asymmetric X3 - [id number] Implanted:Qty: 1 on 11/19/2016 by Orion Cheng MD at [facility] Left: Knee [employer] 06/16/2021 5551-G-29 9# / / [id number] Insert Knee Sz4 11mm Tri[employer]lon[employer] Stbz X3 - [id number] Implanted:Qty: 1 on 11/19/2016 by Orion Cheng MD at [facility] Left: Knee [employer] 08/05/2021 5531-G-41 1# / / [id number] Cmnt Bone 40g Simplex P Non Atb Mv - [id number] Implanted:Qty: 1 on 11/19/2016 by Orion Cheng MD at [facility] Left: Knee [employer] 05/11/2019 6191-1-01 0# / / [id number] Cmnt Bone 40g Simplex P Non Atb Mv - [id number] Implanted:Qty: 1 on 11/19/2016 by Orion Cheng MD at [facility] Left: Knee [employer] 05/11/2019 6191-1-01 0# / / [id number] Cmnt Bone 20g Simplex P Non Atb Mv - [id number] Implanted:Qty: 1 on 11/19/2016 by Orion Cheng MD at [facility] Left: Knee [employer] 11/08/2018 6188-07-12 0# / / [id number] Procedures Procedure Name Priority Date/Time Associated Diagnosis Comments SCAN-RADIOLOGY REPORT 06/10/2024 12:00 AM WOOD FILLER HEMOGLOBIN A1C MONITORING (POCT) Routine 05/29/2024 12:01 PM WOOD FILLER Type 2 diabetes mellitus with other specified complication, without long-term current use of insulin (HC) BASIC METABOLIC PANEL Routine 05/29/2024 11:59 AM WOOD FILLER HTN (hypertension) LIPID PANEL Routine 05/29/2024 11:59 AM WOOD FILLER Hyperlipidemia, unspecified hyperlipidemia type CT CHEST WO STAT 05/11/2023 12:35 PM CDT ANTI HIV 1/2 NEGIN 10/29/2021 8:39 PM CDT COLONOSCOPY SCREENING Routine 05/27/2017 Screening for colon cancer from Last 3 Months or Most Recently Relevant to Health Maintenance Results * SCAN-RADIOLOGY REPORT (06/10/2024 12:00 AM WOOD FILLER) Anatomical Region Laterality Modality Other us Scanner OTHER Final Result * (ABNORMAL) HEMOGLOBIN A1C MONITORING (POCT) (05/29/2024 12:01 PM WOOD FILLER) POC HEMOGLOBIN A1C 6.4(H) <6.0 % OF TOTAL HGB [facility] Comment: Any point of care results exhibiting inconsistency with the patient's clinical status should be repeated using a different testing method. Blood BLOOD SPECIMEN / Unknown 05/29/2024 12:01 PM WOOD FILLER 05/29/2024 12:01 PM WOOD FILLER us Alma Hale MD CHEMISTRY Fi nal Result [facility] [address] [place] [address], [place] [phone] [facility] [address] [place] [address] * LIPID PANEL (05/29/2024 11:59 AM WOOD FILLER) CHOLESTEROL, TOTAL 139 <200 mg/dL [facility] HDL CHOLESTEROL 52 > OR = 50 mg/dL [facility] TRIGLYCERIDES 132 <150 mg/dL [facility] LDL-CHOLESTEROL 65 mg/dL (calc) [facility] Comment: Reference range: <100 Desirable range <100 mg/dL for primary prevention; <70 mg/dL for patients with CHD or diabetic patients with > or = 2 CHD risk factors. LDL-C is now calculated using the Miguel calculation, which is a validated novel method providing better accuracy than the Friedewald equation in the estimation of LDL-C. Edgar SS et al. ADALID. 2013;310(19): 5289-6599 (http://education.Guest of a Guest/faq/OBP369) CHOL/HDLC RATIO 2.7 <5.0 (calc) [facility] [employer] [facility] NON HDL CHOLESTEROL 87 <130 mg/dL (calc) [facility] Comment: For patients with diabetes plus 1 major ASCVD risk factor, treating to a non-HDL-C goal of <100 mg/dL (LDL-C of <70 mg/dL) is considered a therapeutic option. Blood BLOOD SPECIMEN / Unknown 05/29/2024 11:59 AM WOOD FILLER 05/29/2024 12:00 PM WOOD FILLER Alma Hale MD CHEMISTRY Fi nal Result [employer] [facility] [address] [place] [address], [facility] [address] [place] [address] * (ABNORMAL) BASIC METABOLIC PANEL (05/29/2024 11:59 AM WOOD FILLER) GLUCOSE 104(H) 65 - 99 mg/dL [facility] gui De Leone Comment: Fasting reference interval For someone without known diabetes, a glucose value between 100 and 125 mg/dL is consistent with prediabetes and should be confirmed with a follow-up test. UREA NITROGEN (BUN) 18 7 - 25 mg/dL [facility] CREATININE 0.67 0.50 - 1.05 mg/dL [facility] EGFR 98 > OR = 60 mL/min/1. 73m2 [facility] BUN/CREATININE RATIO SEE NOTE: 6 - 22 (calc) [facility] Comment: Not Reported: BUN and Creatinine are within reference range. SODIUM 143 135 - 146 mmol/L [facility] POTASSIUM 3.6 3.5 - 5.3 mmol/L [facility] CHLORIDE 105 98 - 110 mmol/L [facility] CARBON DIOXIDE 28 20 - 32 mmol/L [facility] ELECTROLYTE BALANCE 10 7 - 17 mmol/L (calc) [facility] CALCIUM 9.8 8.6 - 10.4 mg/dL [facility] Blood BLOOD SPECIMEN / Unknown 05/29/2024 11:59 AM WOOD FILLER 05/29/2024 12:00 PM WOOD FILLER Alma Hale MD CHEMISTRY Fi nal Result [employer] [facility] [address] [place] [address], [facility] [address] [place] [address] * CT CHEST WO (05/11/2023 12:35 PM [...] care provider. EXAM: CT CHEST WO LOCATION: [facility] MEDICAL [facility]AG[facility] DATE: 05/11/2023 INDICATION: Respiratory illness. [...] care provider. EXAM: CT CHEST WO LOCATION: [facility] MED[facility] DATE: 05/11/2023 INDICATION: Respiratory illness. [...] ve Non-Reacti ve 10/30/2021 9:21 AM CDT [facility] Comment:HIV-1 p24 and HIV-1/ HIV-2 Ab not detected. Blood BLOOD SPECIMEN / Unknown Non-Lab Venipuncture / Unknown 10/29/2021 8:39 PM CDT 10/29/2021 8:44 PM CDT Omar Cosby DO SEND OUTS Fi nal Result [facility] [address] [place] [address], [place] * COLONOSCOPY SCREENING (05/27/2017) Alma Jaime MD GI PROCEDURE ORD Fin al Result from Last 3 Months or Most Recently Relevant to [place] [id number] [facility] Advance Directives * Full Code (Latest Code [...] Code Status Discussion: Reviewed Preferences Care Teams Editor Farm Journal Relationship Specialty Start Date End Date Alma Hale MD [address] [place] [address] PCP - General Family Practice 06/26/24 Ainsley Pereyra MD Critical Care Medicine 10/30/21 Maritza Sykes, RN, BSN, OCN Nurse Navigator - Oncology Registered Nurse 11/12/21 Rico Ortega MD Consulting Physician Surgery - Cardiothoracic 11/21/21
--- OUTSIDE RECORDS SUMMARY | 2024-08-05 11:44 | XMS_ITS | Encounter Summary ---
Author Organization [employer] Address [address] [place] [address] Care Team Providers Care Command And Control Systems Integrator Name Role Phone Gopal Varghese DO Primary Care Provider [phone] Encounter Details Date Type Department Care Team [...] R/O COVID19 07/09/2023 07/09/2023 07/09/2023 4:52 PM BRAND ANALYST documented as of this encounter Care Teams Command And Control Systems Integrator Relationship Specialty Start Date End Date Gopal Varghese DO [address] [place] [address] PCP - General Family Practice 05/29/19 documented as of this encounter
--- OUTSIDE RECORDS SUMMARY | 2024-08-05 11:44 | XMS_ITS | Continuity of Care Document ---
Author Organization [facility] Address [address] [address] [place] [address] Phone Care Team Providers Care Raimann Machine Operator Name Role Phone Ekaterina Cruz CRNA Unavailable [...] Diagnoses Date Provider Providers Copied on Encounter [facility] NAY[address] [address], [place], [place], [id number], [place] tel:[phone] [facility] No Information 0 Anthony Tobar. [address] [facility], [place], [place], [address], [place]. tel:[phone] Referring Provider: Héctor Blake, [address] [facility] [address], [place], [address] . tel:[phone] [facility] Dig[facility] Health NISHA, [address] [address], Concetta benítez [place], [id number], [place] tel:[phone] [facility] Colorectal polyp detected on colonoscopyPerso nal history of colonic polypsDiverticul osis of colon without diverticulitisAb normal findings on dx imaging of ot body structuresAbnorm al findings on dx imaging of ot body structuresPerson al history of colonic polyps 0 Winifred Anaya. [address] [facility], [facility] [address], [place], [place], [id number], [place]. tel:[phone] Referring Provider: Referral Self, USE FOR SELF REFERRALS. [facility] Dig[facility] Health NISHA, [address] [address], [place], [id number], [place] tel:[phone] [facility] No Information 0 Winifred Anaya. [address] [facility], [address], [place], [place], [address], [place]. tel:[phone] [facility] Digestive Health NISHA, [address] [address], [place], [address], [place] tel:[phone] [facility] Colitis 0 No Information Init Hosp- E&m Mod Severity [facility] Dig[facility]ive Health NISHA, [address] [address], [place], [id number], [place] tel:[phone] [facility] No Information 0 No Information [facility] Dig[facility]ive Health NISHA, [address] [address], [place], [id number], [place] tel:[phone] [facility] Benign colonic polypDiverticulo sis of colon without diverticulitisCo nadira cancer screeningBenign neoplasm of colon, unspecifiedEncou nter for screening for malignant neoplasm of colonDvrtclos of lg int w/o perforation or abscess w/o bleedingPolyp of colon 7 No Information [facility] Digestive Health PA, [address] [address], [place], [id number], [place] tel:[phone] [facility] H. Pylori InfectionHelicob acter pylori [H. pylori] as the cause of diseases classified elsewhere 5 Go MD Zamudio. [address] [facility], [facility] [address], [place], [place], [address], [place]. tel:[phone] [facility] Digestive [facility], [address] [address], [place], [address], [place] tel:[phone] [facility] GastritisGastrit isGastritis - mildAtrophic Gastritis Go MD Zamudio. [address], [id number], [place]. tel:[phone] Referring Provider: Referral Self, USE FOR SELF REFERRALS. Offic/outpt E&m [facility] [place], [address] [address], [place], [address], [place] tel:[phone] [facility] GI Symptoms or Concerns (chief complaint) Epigastric PainNausea And VomitingDietary Surveil/counselN ausea with vomiting, unspecifiedEpiga stric painDietary counseling and surveillance No Information Referring Provider: Referral Self, USE FOR SELF REFERRALS. [facility] Digestive [facility], [address] [address], [place], [id number], [place] tel:[phone] [facility] H. Pylori Infection Rodo Anaya. [address] [facility], [facility] [address], [place], [place], [address], [place]. tel:[phone] Referring Provider: Sundeep Peña MD, [address] [place], [address]. tel:[phone] [facility] Dig[facility]ive Health PA, [address] [address], [place], [id number], [place] tel:[phone] [facility] H. Pylori InfectionEpigast mendez PainGastroesopha geal Reflux Rodo Anaya. [address] [facility], [address], [place], [place], [address], [place]. tel:[phone] Referring Provider: Sundeep Peña MD, [address] [place], [address]. tel:[phone] Offic/outpt E&m Estab Low-mod [facility] [place], [address] [address], [facility] [place], [id number], [place] tel:[phone] [facility] H Pylori (chief complaint) Gastroesophageal RefluxEpigastric PainH. Pylori InfectionConstip ation Unspecified Rodo Anaya. [address] [facility], [facility] [address], [place], [place], [address], [place]. [phone] Referring Provider: Sundeep Peña MD, [address] [place], [address]. tel:[phone] Subsqt Hosp-da E&m Minr Compl [facility] [place], [address] [address], [facility], [address], [place] tel:[phone] [facility] No Information No Information Referring Provider: Huber Mtz, [address] [facility], [place], [address]. tel:[phone] Init Inpt Cons New/est Mod-hi [facility] [place], [address] [address], [facility] [place], [address], [place] tel:[phone] [facility] No Information 1 No Information Referring Provider: Huber Mtz, [address] [facility] , [place], [address]. tel:[phone] Init Inpt Cons New/est Mod-hi [facility] [place], [address] [address], [facility], [address], [place] tel:[phone] [facility] No Information 9 No Information Referring Provider: Huber Mtz, [address] [facility], [place], [address]. tel:[phone] [facility] [place], [address] [address], [place], [id number], [place] tel:[phone] [facility] Diverticulosis Of ColonPolyp-intes /rect/stom-unc BehHiatal HerniaBenign Neoplasm Lg BowelGastritis W/o BleedH. Pylori InfectionDiverti culosis Of Colon 9 No Information Referring Provider: Maite Rivera MD, [address], [place], [address]. tel:[phone] Offic Cons New/estab Mod-hi 60 [facility] [place], [address] [address], [place], [address], [place] tel:[phone] [facility] Abdominal pain (chief complaint) Abdominal Pain, UnspecifiedNause a With VomitingChange In Bowel HabitsWeight Loss 9 Melvina Valero. [address], [id number], [place]. tel:[phone] Referring Provider: Maite Rivera MD, [address], [place], [address]. tel:[phone] Subsqt Hosp-da E&m Minr Compl [facility] Dig[facility]ive Health NISHA, [address] [address], [place], [id number], [place] tel:[phone] [facility] No Information 8 No Information [facility] NISHA, [address] [address], [place], [id number], [place] tel:[phone] [facility] No Information 8 Uriah Carey. [address], [id number], [place]. tel:[phone] Init Inpt Cons New/est Mod-hi [facility] [place], [address] [address], [place], [id number], [place] tel:[phone] [facility] No Information 8 Rodo Anaya. [address], [id number], [place]. [phone] Subsqt Hosp-da E&m Minr Compl [facility] [place], [address] [address], [facility] [place], [address], [place] tel:[phone] [facility] No Information 0 [address] Rodo Anaya. [address], [id number], [place]. [phone] Init Inpt Cons New/est Mod-hi [facility], [address] [address], [facility] [place], [address], [place] tel:[phone] [facility] No Information 0 6200 8 No Information Init Inpt Cons New/est Mod-hi [facility] [place], [address] [address], [facility] [place], [address], [place] tel:[phone] [facility] No Information 8 Debora Uribe. [address] [place] [address], [id number], [place]. tel:[phone] Referring Provider: Listed Not. Family History Family [...] Registry Payers Payer name Insurance type Covered republican ID Mony avitia(s) [facility] CR/MA CI [id number] Social History Type Description Quantity Date Captured [...] I will also obtain blood work from [facility] to see what was checked at that [...]
--- OUTSIDE RECORDS SUMMARY | 2024-08-05 11:44 | XMS_ITS | Encounter Summary ---
Author Organization [employer] Address [address] [place] [address] Care Team Providers Care Horticultural Farmer Name Role Phone Gopal Varghese DO Primary Care Provider [phone] Encounter Details Date Type Department Care Team [...] R/O COVID19 07/09/2023 07/09/2023 07/09/2023 4:52 PM BRANCH CONTROLLER documented as of this encounter Care Teams Horticultural Farmer Relationship Specialty Start Date End Date Gopal Varghese DO [address] [place] [address] PCP - General Family Practice 05/29/19 documented as of this encounter
--- OUTSIDE RECORDS SUMMARY | 2024-08-05 11:44 | XMS_ITS ---
Author Name Interface, [id number] [employer] Address [address] [facility] [address] [address] Organization [facility] Address [address] [facility] [address] [address] Care Team Providers Care Hot Water Heater Installer Name Role Phone Rico Ortega Unavailable Unavailable Allergies and Adverse Reactions Medication/Group Name Reaction Severity Date BISMUTH SUBSALICYLATE Anaphylaxis 2021 CIPROFLOXACIN Anaphylaxis 03/18/2022 NAPROXEN GI Upset 03/18/2022 Plan Date Type Value 03/18/2022 APPOINTMENT OV 15 MIN 09/22/[address] [facility] [address] w/o IV contrast Reason for Visit OV 15 MIN Encounters Date Name 03/18/2022 Lung adenocarcinoma Medications Date Name Route Dose Frequency Instructions Start Date End Date Status Aspirin Oral Oral 81.0 mg act rivera Budesonide-Formot janie HFA Inhaler 160 mcg-4.5 mcg/actuation active Sertraline Oral Oral 100.0 mg active 12/05/19 22 Acetaminophen Oral Oral 1000.0 [...] Lung adenocarcinoma Active Lung nodule, solitary Active Vital Signs Date Type Value 03/18/2022 Body Temperature 96.60 03/18/2022 Heart Beat 100.00 03/18/2022 Oxygen Saturation 96.00 03/18/2022 Intravascular Systolic 132 03/18/2022 Intravascular Diastolic 75 03/18/2022 BSA 1.77 03/18/2022 Weight 153.60 03/18/2022 Height 65.00 03/18/2022 BMI 25.56 03/18/2022 Pain Scale 0.00
--- OUTSIDE RECORDS SUMMARY | 2024-08-05 11:44 | XMS_ITS ---
Author Name Interface, [id number] Address [address] [facility] [address] [address] Organization [facility] Address [address] [facility] [address] [address] Care Team Providers Care Stock Wetter Name Role Phone Rico Ortega Unavailable Unavailable Allergies and Adverse Reactions Medication/Group Name Reaction Severity Date BISMUTH SUBSALICYLATE Anaphylaxis 2021 CIPROFLOXACIN Anaphylaxis 03/18/2022 NAPROXEN GI Upset 03/18/2022 Plan Date Type Value 03/18/2022 APPOINTMENT OV 15 MIN 09/22/2022 [facility] Chest CT w/o IV contrast Reason for [...]
--- OUTSIDE RECORDS SUMMARY | 2024-08-05 11:45 | XMS_ITS | Clinical Summary ---
Author Organization [facility] Address [address], [place] [address] Care Team Providers Care Vending Machine Host/Hostess Name Role Phone Gopal Varghese Primary Care Provider [phone] Source Comments You are receiving this document as you are listed as the primary care provider,follow-up provider, or the patient has been referred to you for consultation.This is in compliance with the Medicare and[facility] EHR Incentive Program,which states Providers who transition their patient to another setting of careor provider of care or refers their patient to another provider of care shouldprovide summary care record for each transition of care or referral. [facility] Allergies Active Allergy Reactions Criticality Noted Date [...] hydrOXYzine HCl (ATARAX) 25 MG tabletIndications:An xiety ([facility]) Take 1 Tablet (25 mg) by [...] tage 2 moderate COPD by GOLD classification ([facility]) Inhale 1 Puff daily. 1 Each 11 08/19/2023 Active gabapentin (NEURONTIN) 300 MG capsuleIndications:M enopausal syndrome (hot flashes) TAKE 1 CAPSULE(300 MG) BY MOUTH THREE TIMES DAILY 270 Capsule 1 11/24/2023 Active metFORMIN XR (GLUCOPHAGE XR) 500 MG 24 hour release tabletIndications:Ty pe 2 diabetes mellitus without complication, without long-term current use of insulin ([facility]) Take 4 Tablets (2,000 mg) by [...] resources. Emerita Yanez RN 12/23/2021, 5:25 PM [phone] This is an FYI only. No action from the clinic is required. Zahira Fernandez was enrolled with Disease and Case Management and the case has been closed because patient stopped responding. If questions or concerns please contact me at [phone] 07/09/2021 6:31 PM Problem Noted Date Diagnosed [...] admission for COPD exacerbation - Pulmonology at [facility] 11/2021 - Lobectomy Dr. Ortega - [facility] Status post total left knee replacement 11/20/19 [...] (10/15/2021): Tier 2 DX V65.8 REPLACED WITH [id number] (10/17/2012) Prediabetes 07/28/2012 12/09/2022 Sprain and strain of shoulder and upper arm 07/28/2012 04/15/2022 Overview (10/15/2021): Problem list name updated by automated process. Provider to review UTI (urinary tract infection) 07/28/2012 04/15/2022 Overview (10/15/2021): Problem list name updated by automated process. Provider to review Artificial menopause 04/14/2006 021 Encounters Date Type Department Care Team Description 06/10/2024 [facility] HIM DEPARTMENT Provider, MD Rema [facility] 06/10/2024 from Last 3 Months Immunizations Name Administration Dates Next Due Flu Vac (3+ yrs) 03/15/2013, 2,03/25/2011,2008,09/10/2007,05/26/2007 Flu Vac Preserv Free (3+yrs) 03/25/2011 HepB Adult (Heplisav-B, 19+ yrs, 2 dose series) 06/01/2022 Influenza (Flucelvax), Prese rv Free QIV 07/16/2023 Influenza IIV4 (Quadrivalent ) 0.5mL (63980) 04/26/2022,04/21/2021,03/20/2019,2016,06/11/2016,07/20/2014 Influenza, Unspecified Formulation 06/11/2016, Moderna Monovalent 12+ 12/06/2020,11/01/2020 PCV20 ([id number]) 06/01/2022 PPSV23 (Pneumovax) 03/15/2013 Td 07/12/2005,09/17/2004 Tdap [...] CDT Respiratory Rate 22 08/12/2023 5:43 PM OTHER SALES SUPPORT WORKER Oxygen Saturation 95% 01/21/2024 2:45 PM CDT [...] ALBUMIN/CREAT RATIO Routine 07/16/2023 9 :29 AM OTHER SALES SUPPORT WORKER Type 2 diabetes mellitus without complication, without long-term current use of insulin ([facility]) HGB A1C Routine 07/16/2023 9:27 AM OTHER SALES SUPPORT WORKER Type 2 diabetes mellitus without complication, without long-term current use of insulin ([facility]) BASIC METABOLIC PANEL Routine 07/11/2023 7:40 AM OTHER SALES SUPPORT WORKER MM MAMMOGRAM DIAG BILAT W 3D LIAM Routine 08/13/2022 1:58 PM OTHER SALES SUPPORT WORKER Breast pain, right Mass of right breast, unspecified quadrant LIPID PANEL & DIRECT LDL (IF NEEDED) Routine 06/01/2022 12:59 PM OTHER SALES SUPPORT WORKER Routine health maintenance Hyperlipidemia, unspecified hyperlipidemia type COLONOSCOPY Routine 11/21/2020 9:30 AM CDT Screen for colon cancer HIV 1/2 AG/AB 4TH GEN Routine 06/29/2019 8:40 AM OTHER SALES SUPPORT WORKER Routine health maintenance Screening for HIV (human immunodeficiency virus) HEPATITIS C ANTIBODY, WITH REFLEX Routine 06/29/2019 8:40 AM OTHER SALES SUPPORT WORKER Routine health maintenance Need for hepatitis C screening test from Last 3 Months or Most Recently Relevant to Health Maintenance Results * (ABNORMAL) Albumin/Creatinine Ratio,Random Urine (07/16/2023 9:29 AM OTHER SALES SUPPORT WORKER) Albumin/Creati nine Ratio, Urine, Random 254(H) <30 mg/g 07/16/2023 11:[address] [facility] Albumin, Urine, Random 241.5 mg/L 07/16/2023 11:43 AM [facility] Creatinine, Urine, Random 95 >20 mg/dL mg/dL 07/16/2023 11:43 AM [facility] Urine Non-blood Collection / Unknown 07/16/2023 9:29 AM OTHER SALES SUPPORT WORKER 07/16/2023 9:29 AM OTHER SALES SUPPORT WORKER Gopal Varghese DO LAB_1 Performing Organization Address [facility] de Phone Number [facility] [address] [id number], [facility] [phone] * (ABNORMAL) Hgb A1C (07/16/2023 9:27 AM OTHER SALES SUPPORT WORKER) Hemoglobin A1C 7.6(H) <=5.6 % 07/16/2023 1:02 PM OTHER SALES SUPPORT WORKER [facility] Estimated Average Glucose (Calc) 171 < 117 mg/dL 07/16/2023 1:02 PM [facility] Comment:Estimated average gl ucose (eAG) converts A1c into glucose units (mg/dL) and estimates average glucose over the past approximately 3 months. The eAG reference interval (<117 mg/dL) corresponds to an A1c of <5.7%. Blood Venipuncture / Unknown 07/16/2023 9:27 AM OTHER SALES SUPPORT WORKER 07/16/2023 9:27 AM OTHER SALES SUPPORT WORKER Narrative [facility] - 07/16/2023 1:02 PM OTHER SALES SUPPORT WORKER For patients not previously diagnosed with diabetes: 5.7-6.4%: Increased risk for diabetes 6.5% and greater: Diagnostic for diabetes For patients diagnosed with diabetes: <8.0%: Goal of therapy for ages 18-75 Clinicians may recommend a higher or lower goal for specific individuals. Gopal Varghese DO LAB_1 Performing Organization Address [facility] Co de Phone Number [facility] [address] [address], [facility] [phone] * (ABNORMAL) Basic Metabolic Panel (07/11/2023 7:40 AM OTHER SALES SUPPORT WORKER) Sodium 140 136 - 145 mmol/L 07/11/2023 8:22 AM [facility] Potassium 3.9 3.5 - 5.1 mmol/L 07/11/2023 8:22 AM [facility] Chloride 106 98 - 109 mmol/L 07/11/2023 8:22 AM [facility] CO2 25 20 - 29 mmol/L 07/11/2023 8:22 AM [facility] Anion Gap 9 7 - 16 mmol/L 07/11/2023 8:22 AM [facility] Calcium 9.1 8.4 - 10.4 mg/dL 07/11/2023 8:22 AM [facility] BUN 9 7 - 26 mg/dL 07/11/2023 8:22 AM [facility] Creatinine 0.64 0.55 - 1.02 mg/dL 07/11/2023 8:22 AM [facility] Glucose 116(H) 70 - 100 mg/dL 07/11/2023 8:22 AM [facility] Comment:The given reference range is for the fasting state. Non-fasting reference range for glucose is 70 - 180 mg/dL. GFR, Estimated >60 >60 mL/min/1.7 3m2 07/11/2023 8:22 AM [facility] Blood Venipuncture / Unknown 07/11/2023 7:40 AM OTHER SALES SUPPORT WORKER 07/11/2023 7:46 AM OTHER SALES SUPPORT WORKER Nba Herrera MD LAB_1 Performing Organization Address City/State/[facility] Co de Phone Number [address] [phone] * MM Mammogram Diag Bilat W 3D Liam (08/13/2022 1:58 PM OTHER SALES SUPPORT WORKER) Anatomical Region Laterality Modality Breast Bilateral Mammography 08/13/2022 1:58 PM OTHER SALES SUPPORT WORKER Narrative 08/13/2022 2:37 PM OTHER SALES SUPPORT WORKER EXAM: MM MAMMOGRAM DIAG BILAT W 3D LIAM, MM US BREAST RT LOCATION: [facility] DATE/TIME: 08/13/2022 1:58 PM INDICATION: 61-year-old female [...] of the area of patient's pain, with education courses sales representative images obtained at 1:00 8 [...] 3D LIAM, MM US BREAST RT LOCATION: [facility] DATE/TIME: 08/13/2022 1:58 PM INDICATION: 61-year-old [...] Ultrasound of the area of patient'[place], with education courses sales representative images obtained at 1:00 8 [...] and Direct LDL(If Needed) (06/01/2022 12:59 PM OTHER SALES SUPPORT WORKER) Cholesterol 158 0 - 199 mg/dL 06/01/2022 5:37 PM OTHER SALES SUPPORT WORKER [facility] Triglyceride 78 <=149 mg/dL 06/01/2022 5:37 PM OTHER SALES SUPPORT WORKER [facility] HDL Cholesterol 53 >=40 mg/dL 06/01/2022 5:37 PM OTHER SALES SUPPORT WORKER [facility] LDL, Calculated 89 <130 mg/dL 06/01/2022 5:37 PM OTHER SALES SUPPORT WORKER [facility] Non HDL Chol, Calculated 105 <=159 mg/dL 06/01/2022 5:37 PM OTHER SALES SUPPORT WORKER [facility] Cholesterol/HDL Ratio 3.0 06/01/2022 5:37 PM OTHER SALES SUPPORT WORKER [facility] Hours Fasting 1 06/01/2022 5:37 PM OTHER SALES SUPPORT WORKER [facility] Blood Venipuncture / Unknown 06/01/2022 12:59 PM OTHER SALES SUPPORT WORKER 06/01/2022 12:59 PM OTHER SALES SUPPORT WORKER Gopal Varghese DO LAB_1 Performing Organization Address City/State/[facility] Co de Phone Number [facility] [address] [phone] [facility] [address] [place] [id number], [place] [phone] * Colonoscopy (ProVation order) (11/21/2020 9:30 AM [...] there are any questions, please contact the timber deadener. - Repeat colonoscopy in 2 years for surveillance. - Return to referring physician as previously scheduled. - Patient's sedation for a repeat study will require Anesthesia staff assistance. Procedure Code(s): --- Professional --- 35785, 22,PT 60583, 59,PT --- Technical --- [address], [place] [address], 59,PT Diagnosis Code(s): --- Professional --- K63.5 Z12.11 Z86.010 K57.30 --- Technical --- K63.5 Z12.11 Z86.010 K57.30 CPT copyright 2019 [employer]. All rights reserved. The codes documented in this report are preliminary and upon ticket marker review may be revised to meet current [...] there are any questions, please contact the timber deadener. - Repeat colonoscopy in 2 years for surveillance. - Return to referring physician as previously scheduled. - Patient's sedation for a repeat study will require Anesthesia staff assistance. Procedure Code(s): --- Professional --- 40029, 22,PT 10298, 59,PT --- Technical --- [address], [place] [address], 59,PT Diagnosis Code(s): --- Professional --- K63.5 Z12.11 Z86.010 K57.30 --- Technical --- K63.5 Z12.11 Z86.010 K57.30 CPT copyright 2019 [employer]. All rights reserved. The codes documented in this report are preliminary and upon ticket marker review may be revised to meet current compliance requirements. Attending Participation: MD Ruben Rodriguez MD 11/21/2020 10:18:12 AM This report has been signed electronically. Number of Addenda: 0 Note Initiated On: 11/21/2020 9:30 AM Ruben Enriquez MD [facility] ([place], [place] * HIV 1/2 Ag/Ab 4th Generation (06/29/2019 8:40 AM OTHER SALES SUPPORT WORKER) HIV 1/2 Antigen/Anti body (4th generation) Negative (Non Reactive) Negative (Non Reactive) 06/29/2019 1:10 PM OTHER SALES SUPPORT WORKER [facility] Comment:HIV-1 p24 Antigen an d HIV-1/HIV-2 Antibody not detected Blood Venipuncture / Unknown 06/29/2019 8:40 AM OTHER SALES SUPPORT WORKER 06/29/2019 8:41 AM OTHER SALES SUPPORT WORKER Gopal Varghese DO LAB_1 Performing Organization Address City/[facility]/ZIP Co de Phone Number [facility] [address] [phone] * HEP C recommended for patients born between 5310-1592 (06/29/2019 8:40 AM OTHER SALES SUPPORT WORKER) Hepatitis C Antibody Negative (Non Reactive) Negative (Non Reactive) 06/29/2019 1:09 PM OTHER SALES SUPPORT WORKER [facility] Comment:Antibodies to HCV no t detected. Does not exclude the possiblity of exposure to HCV. Blood Venipuncture / Unknown 06/29/2019 8:40 AM OTHER SALES SUPPORT WORKER 06/29/2019 8:41 AM OTHER SALES SUPPORT WORKER Gopal Varghese DO LAB_1 [facility] [address] [address], [facility] [phone] from Last 3 Months or Most Recently Relevant to Health Maintenance Advance Directives * Full Code (Latest Code Status on File) Date Activated Date Inactivated Comments 07/09/2023 4:27 PM 07/11/2023 4:21 PM Care Teams Vending Machine Host/Hostess Relationship Specialty Start Date End Date Gopal Varghese DO [address] [place] [address] PCP - General Family Practice 05/29/19
[2024-08-05 11:48] LABS: Albumin* 4.4 g/dL (3.3-5.0); Chloride* 104 mmol/L (96-114); Potassium* 4.4 mmol/L (3.6-5.1); Sodium* 139 mmol/L (135-149)
[2024-08-05 11:51] LABS: Alanine Aminotransferase* 19 U/L (4-35); Alkaline Phosphatase* 78 U/L (40-150); Anion Gap 9 mEq/L (7-15); Aspartate Amino Transferase* 26 U/L (12-35); Bilirubin Total* 0.5 mg/dL (0.1-1.5); Blood Urea Nitrogen* 18 mg/dL (7-30); Carbon Dioxide* 26 mmol/L (20-32); Creatinine* 0.7 mg/dL (0.5-1.5); Est. Creatinine Clearance* 51.14; Estimated Glomerular Filt Rate 97 ml/min; Glucose* 117 mg/dL (60-115); Lipase* 49 U/L (23-300); Total Protein* 7.4 g/dL (6.0-8.3)
[2024-08-05 11:52] LABS: Calcium* 9.6 mg/dL (8.4-10.6)
[2024-08-05 12:14] LABS: PCR FLU A Negative PCR FLU A (Negative); PCR FLU B Negative PCR FLU B (Negative); SARS PCR* Negative SARS-CoV-2 (Negative)
[2024-08-05] MEDS: METOCLOPRAMIDE HCL 5 MG/ML INJ 10 MG IVP (12:14)
[2024-08-05] MEDS: diphenhydrAMINE 50 MG/ML inj 12.5 MG IVP (12:14)
[2024-08-05 12:39] LABS: Creatinine, Point-of-Care* 0.8 mg/dl (0.6-1.3)
[2024-08-05 13:20] LABS: Appearance Urine Clear (Clear); Bilirubin Urine Negative (Negative); Blood Urine 2+ (Negative); Color Urine Light yellow (Yellow); Glucose Urine Negative (Negative); Ketones Urine Negative (Negative); Leukocyte Esterase Urine Negative (Negative); Nitrite Urine Negative (Negative); Protein Urine Negative (Negative); Specific Gravity Urine 1.015 (1.000-1.030); Urobilinogen Urine 0.2 (0.2-1.0); pH Urine 5.5 (5.0-8.5)
[2024-08-05 13:33] LABS: Bacteria Urine Few; RBC Urine 0-2 (0-2); Squamous Epithelial Cell Urine Few (None-Few)
[2024-08-05 13:39] LABS: Troponin I* < 0.01 ng/mL (0.01-0.04)
[2024-08-05] MEDS: cefTRIAXone 1 GM in 0.9 % SODIUM CHLORIDE Mini-bag 100 ML IVPB (14:31)
[2024-08-05] MEDS: 0.9 % SODIUM CHLORIDE 500 ML 500 ML IV (14:32)
[2024-08-05] MEDS: AZITHROMYCIN 500 MG in 0.9 % SODIUM CHLORIDE 250 ml 250 ML 255 MG IVPB (15:03)
--- NOTE | 2024-08-05 16:29 | PM.IMHP1 ---
Hospitalist- H&P: HPI History of Present Illness Date Seen: 08/05/24 Chief complaint: Abdominal Pain, Nausea Narrative: Zahira Fernandez is a 63 year old female who presented to the ER today for epigastric abdominal pain, n/v/d. Symptoms began last night. Has had a cough that started yesterday, no fever. Son being treated for H. Pylori. No other sick contacts. No hematemesis or hematochezia. ER: - hypoxic with O2 Saturation pat of 85% at rest, improved with supplemental oxygen - imaging revealed diverticulosis, R middle lung infiltrate, + small herniation of R middle lobe between ribs of R chest - sinus tachycardia + PVCs on EKG, negative troponin - treated with Ceftriaxone and Azithromycin - IV Dilaudid and Zofran for symptom management Upon arrival to the floor, she still has nausea and epigastric discomfort. Doesn't feel like eating. + relief with Zofran and Dilaudid. Histories updated below per patient's report + Epic Chart. PCP is Dr. Hale at the [facility] locally (new relationship, previously seen in [place] for Primary Care. Moved to [place] fall of 2023). Review of Systems Status of ROS: Reports: 10 or more systems reviewed and unremarkable except as noted in History and below [facility] Medical History (Updated 08/05/24 @ 18:05 by Ghazal Perez MD) H. pylori infection ?A04.8 - Other specified bacterial intestinal infections (ICD-10) Osteoarthritis ?M19.90 - Unspecified osteoarthritis, unspecified site (ICD-10) Non-insulin dependent diabetes mellitus GERD (gastroesophageal reflux disease) ?K21.9 - Gastro-esophageal reflux disease without esophagitis (ICD-10) Hyperlipidemia ?E78.5 - Hyperlipidemia, unspecified (ICD-10) Essential hypertension ?I10 - Essential (primary) hypertension (ICD-10) Adenocarcinoma of lung ?C34.90 - Malignant neoplasm of unspecified part of unspecified bronchus or lung (ICD-10) Surgical History (Updated 08/05/24 @ 16:37 by Ghazal Perez MD) S/P thoracotomy ?Z98.890 - Other specified postprocedural states (ICD-10) History of knee replacement ?Z96.659 - Presence of unspecified artificial knee joint (ICD-10) S/P tonsillectomy ?Z90.89 - Acquired absence of other organs (ICD-10) S/P [place]-BSO ?Z90.710 - Acquired absence of both cervix and uterus (ICD-10) ?Z90.722 - Acquired absence of ovaries, bilateral (ICD-10) ?Z90.79 - Acquired absence of other genital organ(s) (ICD-10) S/P cholecystectomy ?Z90.49 - Acquired absence of other specified parts of digestive tract (ICD-10) S/P appendectomy ?Z90.49 - Acquired absence of other specified parts of digestive tract (ICD-10) Social History (Updated 08/05/24 @ 18:02 by Ghazal Perez MD) Narrative: Moved to [place] with Ralph (would be medical decision maker if needed) in fall 2023. 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 Quit smoking 2021, no ETOH use. Full Code status. What is your current living situation?: I presently have a place to live Problems where you live: no known problems Problems where you live details: None In the past 12 months, utilities in danger of being shut off: no In past 12 months, lack of transportation kept you from medical appts, meetings, work, or getting things needed for daily living: no In the past 12 mos, have been you worried that your food would run out before you had money to buy more?: never true In the past 12 mos, the food you bought just didn't last and you didn't have money to buy more?: never true Smoking Status: Former smoker Second hand tobacco smoke exposure: No How often do you have a drink containing alcohol: never How often do you have six or more drinks on one occasion: Never AUDIT-C Alcohol total score: 0 Non-prescribed substance use: denies use How often does anyone, including family, friends and others, physically hurt you: never How often does anyone, including family, friends and others, insult or talk down to you: never How often does anyone, including family, friends and others, threaten you with harm: never How often does anyone, including family, friends and others, scream or curse at you: never service: No Meds Home Medications and Allergies Home Medications ?Medication ?Instructions ?Recorded ?Confirmed ?Type amlodipine 10 mg tablet 10 mg PO DAILY 02/26/24 08/05/24 History atorvastatin 40 mg tablet 40 mg PO DAILY 02/26/24 08/05/24 History budesonide-formoterol HFA 160 1 inh inhalation BID 02/26/24 08/05/24 History mcg-4.5 mcg/actuation aerosol inhaler (Symbicort) gabapentin 300 mg capsule 300 mg PO TID 02/26/24 08/05/24 History ipratropium-albuterol inhalation 02/26/24 History lisinopril 20 mg tablet 20 mg PO DAILY 02/26/24 08/05/24 History ipratropium 0.5 mg-albuterol 3 mg 3 ml inhalation QID 06/10/24 08/05/24 History (2.5 mg base)/3 mL nebulization soln Allergies Allergy/AdvReac Type Severity Reaction Status Date / Time bismuth subsalicylate Allergy Severe Anaphylaxis Verified 08/05/24 11:51 ciprofloxacin Allergy Severe Anaphylaxis Verified 08/05/24 11:51 Exam Narrative: Exam Narrative: GEN: Alert and oriented, laying comfortably in bed. Mildly tearful about being in the hospital HEENT: Normal external ears, EOMIs bilaterally, no scleral icterus CV: RRR, no concerning murmurs R: No wheezing, fine crackles R base Ab: soft, nondistended, tolerates palpation, no HSM Ext: wwp, no concerning edema Skin: No concerning skin lesions or rashes on exposed skin Neuro: Nonfocal Psych: Appropriate Const: Vital Signs, click to edit/add: Vital Signs - 24 hr 08/05/24 10:56 08/05/24 11:11 08/05/24 11:15 Temperature 98.9 F Pulse Rate 63 60 Pulse Rate [Pulse Oximeter] 64 Respiratory Rate 22 Blood Pressure Blood Pressure [Ri ght Upper Arm] 171/119 H Pulse Oximetry 98 97 96 Oxygen Delivery Me thod Room Air Oxygen Flow Rate 08/05/24 11:30 08/05/24 11:31 08/05/24 11:32 Temperature Pulse Rate 80 57 L 69 Pulse Rate [Pulse Oximeter] Respiratory Rate 40 H Blood Pressure 101/50 L Blood Pressure [Ri ght Upper Arm] Pulse Oximetry 93 92 92 Oxygen Delivery Me thod Room Air Oxygen Flow Rate 08/05/24 11:45 08/05/24 11:48 08/05/24 11:51 Temperature Pulse Rate 63 Pulse Rate [Pulse Oximeter] Respiratory Rate 20 Blood Pressure Blood Pressure [Ri ght Upper Arm] Pulse Oximetry 85 L 92 Oxygen Delivery Me thod Room Air Nasal Cannula Nasal Cannula Oxygen Flow Rate 2 2 08/05/24 12:12 08/05/24 12:13 08/05/24 12:15 Temperature Pulse Rate 106 H 67 96 Pulse Rate [Pulse Oximeter] Respiratory Rate 22 Blood Pressure 126/90 H Blood Pressure [Ri ght Upper Arm] Pulse Oximetry 97 95 94 Oxygen Delivery Me thod Nasal Cannula Oxygen Flow Rate 2 08/05/24 12:18 08/05/24 12:30 08/05/24 12:32 Temperature Pulse Rate 101 H 109 H 94 Pulse Rate [Pulse Oximeter] Respiratory Rate 22 16 Blood Pressure 125/69 131/71 Blood Pressure [Ri ght Upper Arm] Pulse Oximetry 90 93 93 Oxygen Delivery Me thod Room Air Nasal Cannula Oxygen Flow Rate 1 08/05/24 12:33 08/05/24 12:38 08/05/24 12:45 Temperature Pulse Rate 81 57 L Pulse Rate [Pulse Oximeter] Respiratory Rate Blood Pressure Blood Pressure [Ri ght Upper Arm] Pulse Oximetry 93 94 94 Oxygen Delivery Me thod Nasal Cannula Oxygen Flow Rate 1 08/05/24 13:00 08/05/24 13:02 08/05/24 13:15 Temperature Pulse Rate 55 L 56 L 55 L Pulse Rate [Pulse Oximeter] Respiratory Rate 20 Blood Pressure 119/58 L Blood Pressure [Ri ght Upper Arm] Pulse Oximetry 93 95 95 Oxygen Delivery Me thod Nasal Cannula Oxygen Flow Rate 1 08/05/24 13:30 08/05/24 13:32 08/05/24 13:45 Temperature Pulse Rate 55 L 55 L 55 L Pulse Rate [Pulse Oximeter] Respiratory Rate Blood Pressure 97/51 L Blood Pressure [Ri ght Upper Arm] Pulse Oximetry 93 93 91 Oxygen Delivery Me thod Oxygen Flow Rate 08/05/24 14:00 08/05/24 14:02 08/05/24 14:15 Temperature Pulse Rate 54 L 55 L 54 L Pulse Rate [Pulse Oximeter] Respiratory Rate 20 Blood Pressure 105/50 L Blood Pressure [Ri ght Upper Arm] Pulse Oximetry 94 93 94 Oxygen Delivery Me thod Oxygen Flow Rate 08/05/24 14:30 08/05/24 14:32 08/05/24 14:45 Temperature Pulse Rate 54 L 54 L 53 L Pulse Rate [Pulse Oximeter] Respiratory Rate Blood Pressure 90/47 L Blood Pressure [Ri ght Upper Arm] Pulse Oximetry 94 97 95 Oxygen Delivery Me thod Oxygen Flow Rate 08/05/24 15:00 08/05/24 15:01 08/05/24 15:15 Temperature Pulse Rate 52 L 87 93 Pulse Rate [Pulse Oximeter] Respiratory Rate Blood Pressure 104/53 L Blood Pressure [Ri ght Upper Arm] Pulse Oximetry 96 93 94 Oxygen Delivery Me thod Oxygen Flow Rate 08/05/24 15:30 08/05/24 15:32 08/05/24 15:45 Temperature Pulse Rate 85 100 67 Pulse Rate [Pulse Oximeter] Respiratory Rate Blood Pressure 116/73 Blood Pressure [Ri ght Upper Arm] Pulse Oximetry 96 95 95 Oxygen Delivery Me thod Oxygen Flow Rate 08/05/24 16:00 08/05/24 16:01 08/05/24 16:15 Temperature Pulse Rate 95 106 H 98 Pulse Rate [Pulse Oximeter] Respiratory Rate Blood Pressure 110/65 Blood Pressure [Ri ght Upper Arm] Pulse Oximetry 92 92 93 Oxygen Delivery Me thod Oxygen Flow Rate Hospitalist - H&P: Result Labs Labs: Short CBC 08/05/24 Range/Units 11:15 WBC 8.24 (4.50-11.00) K/uL Hgb 14.2 (12.0-16.0) gm/dL Hct 43.9 (33.0-51.0) % Plt Count 363 (140-440) K/uL BMP 08/05/24 11:15 Sodium 139 Potassium 4.4 Chloride 104 Carbon Dioxide 26 BUN 18 Creatinine 0.7 Glucose 117 H Calcium 9.6 Cardiac Enzymes 08/05/24 Range/Units 11:15 Troponin I < 0.01 L (0.01-0.04) ng/mL Liver Function 08/05/24 Range/Units 11:15 Total Bilirubin 0.5 (0.1-1.5) mg/dL AST 26 (12-35) U/L ALT 19 (4-35) U/L Alkaline Phosphatase 78 (40-150) U/L Albumin 4.4 (3.3-5.0) g/dL Urine 08/05/24 Range/Units 13:13 Urine Color Light yellow (Yellow) Urine Appearance Clear (Clear) Urine pH 5.5 (5.0-8.5) Ur Specific Star 1.015 (1.000-1.030) Urine Protein Negative (Negative) Urine Glucose (UA) Negative (Negative) Assessment and Plan Assessment and plan (1) Pneumonia: Problem comment: - RUL, noted on 08/05/24 imaging Status: Acute (2) Hypoxia: Problem comment: - 2/2 R sided pneumonia - supplemental oxygen, wean as tolerated Status: Acute (3) Epigastric pain: Problem comment: - ddx: gastritis/H pylori, gastroenteritis, referred pain from PNA - retest H Pylori, start full liquid diet, advance as tolerated, PPI - follow Hgb and BUN, no evidence of acute bleeding Status: Acute (4) H. pylori infection: Problem comment: - has had in 2010 and 2014 per chart review - given history and + epigastric pain, will test for recurrence Status: Acute (5) Adenocarcinoma of lung: Problem comment: - R, stage 1 - s/p limited R thoracotomy, wedge resection of R upper lobe lung nodule, mediastinal lymph node dissection 12/02/[address] Rico Ortega Status: Acute (6) Non-insulin dependent diabetes mellitus: Problem comment: - last A1C 6.4 05/2024 - accuchecks and SSI Status: Acute Plan - per above - Full Code - appropriate for inpatient admission given acute hypoxic respiratory failure, PNA, n/v/d requiring IVFs and monitoring
[2024-08-05] MEDS: PANTOPRAZOLE SODIUM 40 MG INJ IVP (18:09)
[2024-08-05] MEDS: ACETAMINOPHEN 325 MG TABLET 975 MG PO (18:59)
--- NOTE | 2024-08-05 19:26 | PC.NURSE ---
Patient continues to complain of abdominal pain which she rates at 8/10. PRN dilaudid given which brought patient's pain to 6/10. Able to ambulate with SBA to the bathroom. Alert and oriented, follows commands. NSR with [place] PVCs on tele. Has a wet cough, on 1L NC for desating with pain. Other vitals stable.
--- NOTE | 2024-08-05 19:37 | CRLHL7_ITS ---
For Patients: As a result of the Century Cures Act, medical imaging exams and procedure reports are released immediately into your electronic medical record. You may view this report before your referring provider. If you have questions, please contact your health care provider. INDICATION: Chest pain, history of lung cancer.. TECHNIQUE: CT chest PE was acquired with 100 cc Omnipaque 350 IV contrast. MIP reconstructions were performed. COMPARISON: None. FINDINGS: Heart and vasculature: Contrast opacification of the pulmonary arterial tree is adequate. No sign of pulmonary embolism. Cardiomegaly with coronary artery calcifications.. Thoracic aorta and pulmonary artery are normal in caliber. Lungs and pleura: Pulmonary emphysema. Partial right upper lobe wedge resection with some thickening along the anastomosis, possibly scarring. Focal right middle lobe ground-glass consolidation. Scattered atelectasis. No pleural effusions, pleural thickening, or pneumothorax. Lymph nodes/mediastinum: No mediastinal, hilar, or axillary adenopathy. Chest wall: Similar small herniation of right middle lobe lung tissue between ribs of the right anterior chest. No masses. Upper abdomen: No acute or significant findings. Bones: Unremarkable for age. IMPRESSION: No pulmonary embolism. Focal right middle lobe ground-glass consolidation, possibly pneumonia in the appropriate clinical setting. Posttreatment changes could have a similar appearance. Recommend correlation with prior cross-sectional imaging if available. Partial right upper lobe wedge resection with some thickening along the anastomosis, possibly scarring. Again, correlation with prior cross-sectional imaging is recommended if available. Cardiomegaly with coronary artery calcifications. Please note that all CT scans at this facility use dose modulation, iterative reconstruction, and/or weight-based dosing when appropriate to reduce radiation dose to as low as reasonably achievable. Dictated by Meño Stearns MD @ 08/05/2024 8:32:30 PM (Electronically Signed)
[2024-08-05 19:52] LABS: Basophils Absolute Auto 0.01 K/uL (0.00-0.30); Basophils Percent Auto 0.1 % (0.0-3.0); Eosinophils Absolute Auto 0.09 K/uL (0.00-0.50); Eosinophils Percent Auto 1.2 % (0.0-7.0); Hematocrit 37.9 % (33.0-51.0); Immature Granulocytes Abs Auto 0.01 K/uL (0.00-0.30); Immature Granulocytes Pct Auto 0.1 %; Lymphocytes Percent Auto 18.2 % (20-44); Mean Corpuscular HGB Conc 32 gm/dL (32-36); Mean Corpuscular Hemoglobin 31 pg (26-34); Mean Corpuscular Volume 97 fL (80-100); Neutrophils Percent Auto 72.4 % (42.0-72.0); Platelet Count* 295 K/uL (140-440); RDW Coefficient of Variation % 13.4 % (11.5-15.5); Red Blood Count 3.89 m/uL (4.00-5.20); White Blood Count* 7.48 K/uL (4.50-11.00)
[2024-08-05] MEDS: 0.9 % SODIUM CHLORIDE 1000 ml 1,000 ML 125 ML IV (19:52)
[2024-08-05 19:54] LABS: Slide Review Reflex No
[2024-08-05 20:06] LABS: Chloride* 105 mmol/L (96-114); Sodium* 140 mmol/L (135-149)
[2024-08-05 20:08] LABS: Creatinine* 0.7 mg/dL (0.5-1.5); Est. Creatinine Clearance* 51.14; Estimated Glomerular Filt Rate 97 ml/min
[2024-08-05 20:09] LABS: Anion Gap 8 mEq/L (7-15); Blood Urea Nitrogen* 15 mg/dL (7-30); Calcium* 8.2 mg/dL (8.4-10.6); Carbon Dioxide* 27 mmol/L (20-32); Glucose* 120 mg/dL (60-115)
[2024-08-05 20:10] LABS: Magnesium* 1.7 mg/dL (1.5-2.6)
[2024-08-05 20:23] LABS: Troponin I* < 0.01 ng/mL (0.01-0.04)
[2024-08-05] MEDS: ENOXAPARIN 40 MG/0.4 ML INJ SUBCUT (20:49)
[2024-08-05] MEDS: GABAPENTIN 300 MG CAPSULE PO (20:49)
[2024-08-06] VITALS (11 sets, daily range): BP systolic 95–131; BP diastolic 54–74; PULSE 56–85; RESP 16–20; TEMP 36.7–36.9; O2SAT 89–96
[2024-08-06] MEDS: HYDROmorphone 0.5 mg/0.5 ml inj IVP ×8 (00:38→20:58)
[2024-08-06] MEDS: ACETAMINOPHEN 325 MG TABLET 975 MG PO ×4 (00:39→19:01)
[2024-08-06] MEDS: ONDANSETRON 2 MG/ML inj 4 MG IVP (03:25)
[2024-08-06] MEDS: 0.9 % SODIUM CHLORIDE 1000 ml 1,000 ML 125 ML IV ×3 (03:25→21:06)
[2024-08-06] MEDS: OMEPRAZOLE 20 MG CAPSULE DR 40 MG PO (06:04)
--- NOTE | 2024-08-06 06:33 | PC.NURSE ---
End of shift [id number]: A&O pleasant and cooperative. VSS. pt on 1L of oxygen during first half of shift. titrated to room air and tolerating well. pt reporting abdominal pain. see eMAR for interventions. reported x1 episode of nausea. relieved with zofran. clear liquid diet. up w/ sba to bathroom. using call light appropriately.
[2024-08-06 07:27] LABS: Basophils Absolute Auto 0.02 K/uL (0.00-0.30); Basophils Percent Auto 0.4 % (0.0-3.0); Eosinophils Absolute Auto 0.14 K/uL (0.00-0.50); Eosinophils Percent Auto 2.8 % (0.0-7.0); Hematocrit 36.9 % (33.0-51.0); Hemoglobin* 11.5 gm/dL (12.0-16.0); Lymphocytes Absolute Auto 1.86 K/uL (0.90-2.90); Lymphocytes Percent Auto 37.3 % (20-44); Mean Corpuscular HGB Conc 31 gm/dL (32-36); Mean Corpuscular Hemoglobin 31 pg (26-34); Mean Corpuscular Volume 98 fL (80-100); Neutrophils Absolute Auto 2.41 K/uL (1.7-7.0); Neutrophils Percent Auto 48.5 % (42.0-72.0); Platelet Count* 283 K/uL (140-440); RDW Coefficient of Variation % 13.4 % (11.5-15.5); Red Blood Count 3.76 m/uL (4.00-5.20); White Blood Count* 4.98 K/uL (4.50-11.00)
[2024-08-06 07:37] LABS: Slide Review Reflex No
[2024-08-06 07:43] LABS: Albumin* 3.4 g/dL (3.3-5.0); Chloride* 106 mmol/L (96-114); Potassium* 3.9 mmol/L (3.6-5.1); Sodium* 138 mmol/L (135-149)
[2024-08-06 07:45] LABS: Bilirubin Total* 0.2 mg/dL (0.1-1.5); Creatinine* 0.7 mg/dL (0.5-1.5); Est. Creatinine Clearance* 51.14; Estimated Glomerular Filt Rate 97 ml/min
[2024-08-06 07:46] LABS: Alanine Aminotransferase* 20 U/L (4-35); Alkaline Phosphatase* 54 U/L (40-150); Anion Gap 5 mEq/L (7-15); Aspartate Amino Transferase* 31 U/L (12-35); Blood Urea Nitrogen* 14 mg/dL (7-30); Calcium* 7.8 mg/dL (8.4-10.6); Carbon Dioxide* 27 mmol/L (20-32); Glucose* 86 mg/dL (60-115); Total Protein* 5.7 g/dL (6.0-8.3)
[2024-08-06] MEDS: SODIUM CHLORIDE 0.9 % (FLUSH) 10 ML SYRINGE 5 ML IVF ×2 (08:22→20:59)
[2024-08-06] MEDS: ATORVASTATIN CALCIUM 40 MG TABLET PO (08:22)
[2024-08-06] MEDS: GABAPENTIN 300 MG CAPSULE PO ×3 (08:22→20:59)
[2024-08-06] MEDS: guaiFENesin 600 MG TAB.ER.12H 1200 MG PO ×2 (12:22→20:59)
[2024-08-06] MEDS: AZITHROMYCIN 250 MG TABLET 500 MG PO (14:31)
[2024-08-06] MEDS: cefTRIAXone 1 GM in 0.9 % SODIUM CHLORIDE Mini-bag 100 ML IVPB (14:31)
--- NOTE | 2024-08-06 15:39 | PM.IMPN1 ---
Progress Note: A&P Assessment and plan (1) Pneumonia: Problem details: - RUL, noted on 08/05/24 imaging - continue ceftriaxone and azithromycin - Mucinex, aerobika Status: Acute (2) Hypoxia: Problem details: - 2/2 R sided pneumonia - management as above - supplemental oxygen, wean as tolerated Status: Acute (3) Epigastric pain: Problem details: - ddx: gastritis/H pylori, gastroenteritis, referred pain from PNA - retest H Pylori - ordered, no stool yet, start full liquid diet, advance as tolerated, PPI - follow Hgb and BUN, no evidence of acute bleeding - carafate, pain and nausea management as needed, b.i.d. docusate Status: Acute (4) H. pylori infection: Problem details: - has had in 2010 and 2014 per chart review - given history and + epigastric pain, will test for recurrence - No stool yet - Carafate, ppi Status: Acute (5) Adenocarcinoma of lung: Problem details: - R, stage 1 - s/p limited R thoracotomy, wedge resection of R upper lobe lung nodule, mediastinal lymph node dissection 12/02/[address] Rico Ortega Status: Acute (6) Non-insulin dependent diabetes mellitus: Problem details: - last A1C 6.4 05/2024 - accuchecks and SSI Status: Acute Time Spent With Patient Total time spent: Total time spent caring for the patient today was 45 minutes. This includes time spent for the visit reviewing the chart, time spent during the visit, time spent after the visit and documentation and planning in coordination of care. Subjective Date Seen: 08/06/24 Interval history: Patient is seen lying in bed this morning. Has a warm pack on her abdomen. Abdominal pain not significantly improved. Mild intermittent nausea. No vomiting. No BM yet. Denies headache or dizziness. Denies chest pain. Intermittent hypoxia. Exam Narrative: Exam Narrative: PHYSICAL EXAM General: Tearful at times, conversant, NAD HEENT: Normocephalic, atraumatic, sclera white, EOMI, oral mucosa moist Cardiovascular: RRR, S1S2. No pitting edema Pulmonary: CTA bilaterally without rhonchi, rales, expiratory wheezes. No dyspnea on 1 L Abdominal: Soft, nondistended, mild tenderness mid epigastric region Neurological: Alert, answering questions appropriately, cranial nerves intact, no focal findings Extremities: No gross joint deformity or swelling. AROMI. Neurovascularly intact Skin: Warm, dry. Const: Vital Signs, click to edit/add: Vital Signs - 24 hr 08/05/24 15:45 08/05/24 16:00 08/05/24 16:01 Temperature Pulse Rate 67 95 106 H Pulse Rate [Apical ] Pulse Rate [Pulse Oximeter] Respiratory Rate Blood Pressure 110/65 Blood Pressure [Le ft Arm] Pulse Oximetry 95 92 92 Oxygen Delivery Me thod Oxygen Flow Rate 08/05/24 16:15 08/05/24 17:13 08/05/24 17:13 Temperature 99.3 F Pulse Rate 98 Pulse Rate [Apical ] Pulse Rate [Pulse Oximeter] Respiratory Rate 20 20 Blood Pressure Blood Pressure [Le ft Arm] 106/60 Pulse Oximetry 93 93 93 Oxygen Delivery Me thod Nasal Cannula Nasal Cannula Oxygen Flow Rate 1 1 08/05/24 18:37 08/05/24 19:00 08/05/24 20:26 Temperature 98.7 F Pulse Rate 97 Pulse Rate [Apical ] 50 L Pulse Rate [Pulse Oximeter] Respiratory Rate 18 Blood Pressure Blood Pressure [Le ft Arm] 96/58 L 131/58 L Pulse Oximetry 95 Oxygen Delivery Me thod Nasal Cannula Oxygen Flow Rate 1 08/05/24 22:40 08/05/24 22:45 08/06/24 00:11 Temperature 98.3 F Pulse Rate 81 Pulse Rate [Apical ] 70 Pulse Rate [Pulse Oximeter] Respiratory Rate 18 18 Blood Pressure Blood Pressure [Le ft Arm] 94/65 Pulse Oximetry 93 93 Oxygen Delivery Me thod Nasal Cannula Nasal Cannula Oxygen Flow Rate 1 1 08/06/24 00:34 08/06/24 03:14 08/06/24 07:00 Temperature 98.0 F Pulse Rate 84 Pulse Rate [Apical ] Pulse Rate [Pulse Oximeter] 77 Respiratory Rate 18 Blood Pressure Blood Pressure [Le ft Arm] 131/74 106/54 L Pulse Oximetry 96 Oxygen Delivery Me thod Room Air Oxygen Flow Rate 08/06/24 07:00 08/06/24 07:00 08/06/24 07:45 Temperature 98.5 F Pulse Rate Pulse Rate [Apical ] Pulse Rate [Pulse Oximeter] 75 75 Respiratory Rate 20 20 20 Blood Pressure Blood Pressure [Le ft Arm] 114/58 L Pulse Oximetry 96 96 Oxygen Delivery Me thod Room Air Room Air Oxygen Flow Rate 08/06/24 11:00 Temperature 98.3 F Pulse Rate Pulse Rate [Apical ] Pulse Rate [Pulse Oximeter] 85 Respiratory Rate 16 Blood Pressure Blood Pressure [Le ft Arm] 104/68 Pulse Oximetry 89 Oxygen Delivery Me thod Room Air Oxygen Flow Rate Labs Labs: Laboratory Results - last 24 hr 08/05/24 08/06/24 19:42 06:44 WBC 7.48 4.98 RBC 3.89 L 3.76 L Hgb 12.0 11.5 L Hct 37.9 36.9 MCV 97 98 MCH 31 31 MCHC 32 31 L RDW Coeff of [place] 13.4 13.4 Plt Count 295 283 Neut % (Auto) 72.4 H 48.5 Lymph % (Auto) 18.2 L 37.3 [place] % (Auto) 8.0 11.0 Eos % (Auto) 1.2 2.8 Baso % (Auto) 0.1 0.4 Neut # (Auto) 5.40 2.41 Lymph # (Auto) 1.40 1.86 [place] # (Auto) 0.60 0.50 Eos # (Auto) 0.09 0.14 Baso # (Auto) 0.01 0.02 Abs Immat Gran (auto) 0.01 0.00 Imm/Tot Granulo (auto) 0.1 0.0 Sodium 140 138 Potassium 4.0 3.9 Chloride 105 106 Carbon Dioxide 27 27 Anion Gap 8 5 L BUN 15 14 Creatinine 0.7 0.7 Estimated Creat Clear 51.14 51.14 Estimated GFR 97 97 Glucose 120 H 86 Calcium 8.2 L 7.8 L Magnesium 1.7 Total Bilirubin 0.2 AST 31 ALT 20 Alkaline Phosphatase 54 Troponin I < 0.01 L Total Protein 5.7 L Albumin 3.4
[2024-08-06] MEDS: OXYCODONE 5 MG TABLET PO (16:07)
[2024-08-06] MEDS: SUCRALFATE 1 GM TABLET PO ×2 (17:14→20:59)
[2024-08-06] MEDS: hydrOXYzine pamoate 25 MG CAPSULE PO (18:01)
--- NOTE | 2024-08-06 18:59 | PC.NURSE ---
End of shift summary: Pt has been A&O, afebrile and VSS today. She continuously rates her pain at 9-10/10 despite receiving IV Dilaudid q2H and sleeping in between cares. Heating pad provided & PRN oxycodone & Vistaril added on. She was advanced from full liquid to regular diet this afternoon. NS infusing @ 125 mL/hr. She is SBA with IV pole to the BR with a steady gait. Adequate U/O but no BM yet. Blood sugars were 84 > 75 > 104; no SS insulin needed today. TELE reads SR- SB with occasional to frequent PVC?s. Pt denies any nausea or dizziness. Mucinex BID added on for cough treatment & Carafate ACHS added on for abd pain. ?
[2024-08-06 19:56] LABS: H pylori Ag Stool* Negative (Negative)
[2024-08-06] MEDS: ENOXAPARIN 40 MG/0.4 ML INJ SUBCUT (20:59)
[2024-08-06] MEDS: SENNOSIDES/DOCUSATE TABLET 1 TAB PO (20:59)
[2024-08-07] MEDS: HYDROmorphone 0.5 mg/0.5 ml inj IVP ×2 (00:20→08:53)
[2024-08-07] MEDS: ACETAMINOPHEN 325 MG TABLET 975 MG PO ×3 (00:40→12:53)
[2024-08-07 04:06] VITALS: BP 150/86; PULSE 90; RESP 16; TEMP 36.9; O2SAT 93
[2024-08-07] MEDS: OXYCODONE 5 MG TABLET PO ×2 (06:06→11:36)
[2024-08-07] MEDS: OMEPRAZOLE 20 MG CAPSULE DR 40 MG PO (06:06)
[2024-08-07] MEDS: 0.9 % SODIUM CHLORIDE 1000 ml 1,000 ML 125 ML IV (06:07)
--- NOTE | 2024-08-07 06:28 | PC.NURSE ---
End of shift [id number]: A&O pleasant and cooperative. VSS. maintaining sats >90% on RA. reporting abd pain 6-10/10 overnight. see eMAR for interventions. denies n/v. tolerating oral fluids overnight. bowel sounds active. intermittent productive cough. up w/ sba to bathroom. using aqua-k overnight. denies CP or SOB. using call light appropriately.
[2024-08-07 07:00] VITALS: BP 128/92; PULSE 75; PULSE 87; RESP 16; RESP 18; TEMP 36.8; O2SAT 96
--- NOTE | 2024-08-07 07:28 | P.IMPN_ITS ---
Subjective Date Seen: 08/07/24 Interval history: Daily Progress Note - Hospital #: CC: 24 HOUR UPDATE: Notable Labs, Micro, Rads, Interventions: Focal right middle lobe ground-glass consolidation Objective: Vitals: see above Lungs: Clear. Cardiac: S1S2. Disposition/Potential discharge - Today I spent 50minutes seeing the patient, reviewing Expanse and EPIC notes/diagnostics, discussing the care plan with our care time that includes social work, PT/OT, pharmacy, RT, long term and documenting my impressions and plan in the medical record. Prolonged Physician Services [id number] ([facility]) in conjunction with: [id number] (subsequent visit; 50 mins + 15 mins prolonged services = 65 mins total) I then went back for 15 mins to discuss the findings of ..... Alcohol 37522 >30 mins. We went over all the stigmata of alcoholism I see in this patient. I discussed the effects of chronic alcohol on the brain, liver, and heart. I recommended complete abstinence from alcohol and instructed on programs available at discharge from acute care. Smoking/Tobacco 97933 >10 mins. I went over the clinical stigmata of chronic tobacco use on the body. I explained the effect on the vasculature, lungs, heart, skin. I recommended complete abstinence from tobacco products and instructed on programs available at discharge from acute care. ACP first 30 mins [id number] I went over options for care during this current hospitalization and explained the difference between palliative care and hospice care. I described the likelihood of returning to previous functioning and what the options are going forward for care. Exam Const: Vital Signs, click to edit/add: Vital Signs - 24 hr 08/06/24 07:45 08/06/24 11:00 08/06/24 15:00 Temperature 98.5 F 98.3 F 98.3 F Pulse Rate Pulse Rate [Apical ] Pulse Rate [Pulse Oximeter] 75 85 75 Respiratory Rate 20 16 18 Blood Pressure [Le ft Arm] 114/58 L 104/68 95/62 Pulse Oximetry 96 89 96 Oxygen Delivery Me thod Room Air Room Air Room Air Oxygen Flow Rate 08/06/24 15:00 08/06/24 15:00 08/06/24 15:00 Temperature Pulse Rate 80 Pulse Rate [Apical ] Pulse Rate [Pulse Oximeter] 75 Respiratory Rate 18 18 Blood Pressure [Le ft Arm] Pulse Oximetry 96 Oxygen Delivery Me thod Room Air Oxygen Flow Rate 08/06/24 19:24 08/06/24 22:46 08/06/24 22:47 Temperature 98.5 F 98.1 F Pulse Rate Pulse Rate [Apical ] 62 56 L Pulse Rate [Pulse Oximeter] Respiratory Rate 18 18 Blood Pressure [Le ft Arm] 109/69 121/68 Pulse Oximetry 96 94 Oxygen Delivery Me thod Room Air Room Air Oxygen Flow Rate 1 08/06/24 22:52 08/07/24 04:06 Temperature 98.5 F Pulse Rate 82 Pulse Rate [Apical ] Pulse Rate [Pulse Oximeter] 90 Respiratory Rate 16 Blood Pressure [Le ft Arm] 150/86 H Pulse Oximetry 93 Oxygen Delivery Me thod Room Air Oxygen Flow Rate Labs Labs: Laboratory Results - last 24 hr 08/05/24 08/06/24 18:45 06:44 WBC 4.98 RBC 3.76 L Hgb 11.5 L Hct 36.9 MCV 98 MCH 31 MCHC 31 L RDW Coeff of [place] 13.4 Plt Count 283 Neut % (Auto) 48.5 Lymph % (Auto) 37.3 [place] % (Auto) 11.0 Eos % (Auto) 2.8 Baso % (Auto) 0.4 Neut # (Auto) 2.41 Lymph # (Auto) 1.86 [place] # (Auto) 0.50 Eos # (Auto) 0.14 Baso # (Auto) 0.02 Abs Immat Gran (auto) 0.00 Imm/Tot Granulo (auto) 0.0 Sodium 138 Potassium 3.9 Chloride 106 Carbon Dioxide 27 Anion Gap 5 L BUN 14 Creatinine 0.7 Estimated Creat Clear 51.14 Estimated GFR 97 Glucose 86 Calcium 7.8 L Total Bilirubin 0.2 AST 31 ALT 20 Alkaline Phosphatase 54 Total Protein 5.7 L Albumin 3.4 Stool H. pylori Ag Negative
--- NOTE | 2024-08-07 07:35 | P.IMPN_ITS ---
Subjective Date Seen: 08/07/24 Interval history: 1. There is a focal infiltrate within the middle of the right lung. There is a small herniation of right middle lobe lung tissue between ribs of the right anterior chest. 2. Status post cholecystectomy. Mild intra and extra hepatic biliary dilation most likely due to a reservoir effect from the previous cholecystectomy. 3. Moderate colonic diverticulosis without diverticulitis. Exam Const: Vital Signs, click to edit/add: Vital Signs - 24 hr 08/06/24 07:45 08/06/24 11:00 08/06/24 15:00 Temperature 98.5 F 98.3 F 98.3 F Pulse Rate Pulse Rate [Apical ] Pulse Rate [Pulse Oximeter] 75 85 75 Respiratory Rate 20 16 18 Blood Pressure [Le ft Arm] 114/58 L 104/68 95/62 Pulse Oximetry 96 89 96 Oxygen Delivery Me thod Room Air Room Air Room Air Oxygen Flow Rate 08/06/24 15:00 08/06/24 15:00 08/06/24 15:00 Temperature Pulse Rate 80 Pulse Rate [Apical ] Pulse Rate [Pulse Oximeter] 75 Respiratory Rate 18 18 Blood Pressure [Le ft Arm] Pulse Oximetry 96 Oxygen Delivery Me thod Room Air Oxygen Flow Rate 08/06/24 19:24 08/06/24 22:46 08/06/24 22:47 Temperature 98.5 F 98.1 F Pulse Rate Pulse Rate [Apical ] 62 56 L Pulse Rate [Pulse Oximeter] Respiratory Rate 18 18 Blood Pressure [Le ft Arm] 109/69 121/68 Pulse Oximetry 96 94 Oxygen Delivery Me thod Room Air Room Air Oxygen Flow Rate 1 08/06/24 22:52 08/07/24 04:06 Temperature 98.5 F Pulse Rate 82 Pulse Rate [Apical ] Pulse Rate [Pulse Oximeter] 90 Respiratory Rate 16 Blood Pressure [Le ft Arm] 150/86 H Pulse Oximetry 93 Oxygen Delivery Me thod Room Air Oxygen Flow Rate Labs Labs: Laboratory Results - last 24 hr 08/05/24 08/06/24 18:45 06:44 WBC 4.98 RBC 3.76 L Hgb 11.5 L Hct 36.9 MCV 98 MCH 31 MCHC 31 L RDW Coeff of [place] 13.4 Plt Count 283 Neut % (Auto) 48.5 Lymph % (Auto) 37.3 [place] % (Auto) 11.0 Eos % (Auto) 2.8 Baso % (Auto) 0.4 Neut # (Auto) 2.41 Lymph # (Auto) 1.86 [place] # (Auto) 0.50 Eos # (Auto) 0.14 Baso # (Auto) 0.02 Abs Immat Gran (auto) 0.00 Imm/Tot Granulo (auto) 0.0 Sodium 138 Potassium 3.9 Chloride 106 Carbon Dioxide 27 Anion Gap 5 L BUN 14 Creatinine 0.7 Estimated Creat Clear 51.14 Estimated GFR 97 Glucose 86 Calcium 7.8 L Total Bilirubin 0.2 AST 31 ALT 20 Alkaline Phosphatase 54 Total Protein 5.7 L Albumin 3.4 Stool H. pylori Ag Negative
[2024-08-07 08:17] LABS: HCO3 VBG 25 mmol/L (21-28); Lactate* 0.5 mmol/L (0.5-1.9); PCO2 VBG 46 mmHG (40-50); PO2 VBG 37.7 mmHG (25-47); pH VBG 7.348 (7.32-7.43)
[2024-08-07 08:18] LABS: Basophils Absolute Auto 0.02 K/uL (0.00-0.30); Basophils Percent Auto 0.4 % (0.0-3.0); Eosinophils Absolute Auto 0.19 K/uL (0.00-0.50); Eosinophils Percent Auto 3.9 % (0.0-7.0); Hematocrit 35.2 % (33.0-51.0); Hemoglobin* 11.1 gm/dL (12.0-16.0); Lymphocytes Percent Auto 39.3 % (20-44); Mean Corpuscular HGB Conc 32 gm/dL (32-36); Mean Corpuscular Hemoglobin 31 pg (26-34); Mean Corpuscular Volume 98 fL (80-100); Monocytes Percent Auto 10.1 % (0.0-11.0); Neutrophils Absolute Auto 2.23 K/uL (1.7-7.0); Neutrophils Percent Auto 46.3 % (42.0-72.0); Platelet Count* 269 K/uL (140-440); RDW Coefficient of Variation % 13.1 % (11.5-15.5); Red Blood Count 3.61 m/uL (4.00-5.20); White Blood Count* 4.83 K/uL (4.50-11.00)
[2024-08-07 08:22] LABS: Slide Review Reflex No
[2024-08-07 08:34] LABS: Albumin* 3.2 g/dL (3.3-5.0); Chloride* 109 mmol/L (96-114)
[2024-08-07 08:35] LABS: Potassium* 3.9 mmol/L (3.6-5.1); Sodium* 139 mmol/L (135-149)
[2024-08-07 08:36] LABS: INR 0.98 (0.91-1.10); Prothrombin Time 13.5 Seconds
[2024-08-07 08:37] LABS: Creatinine* 0.6 mg/dL (0.5-1.5); Est. Creatinine Clearance* 51.14; Estimated Glomerular Filt Rate 100 ml/min
[2024-08-07 08:38] LABS: Alanine Aminotransferase* 25 U/L (4-35); Alkaline Phosphatase* 57 U/L (40-150); Anion Gap 5 mEq/L (7-15); Aspartate Amino Transferase* 29 U/L (12-35); Blood Urea Nitrogen* 9 mg/dL (7-30); Carbon Dioxide* 25 mmol/L (20-32); Glucose* 92 mg/dL (60-115); Lipase* 68 U/L (23-300); Phosphorus* 2.9 mg/dL (2.5-4.5); Total Protein* 5.5 g/dL (6.0-8.3)
[2024-08-07 08:39] LABS: Bilirubin Total* < 0.1 mg/dL (0.1-1.5)
[2024-08-07 08:41] LABS: C Reactive Protein* 0.5 mg/dL (0.5-1.0)
[2024-08-07] MEDS: SERTRALINE 100 MG TABLET 150 MG PO (08:52)
[2024-08-07] MEDS: ASPIRIN 81 MG TABLET EC PO (08:53)
[2024-08-07] MEDS: SUCRALFATE 1 GM TABLET PO ×2 (08:53→11:35)
[2024-08-07] MEDS: ATORVASTATIN CALCIUM 40 MG TABLET PO (08:53)
[2024-08-07] MEDS: guaiFENesin 600 MG TAB.ER.12H 1200 MG PO (08:53)
[2024-08-07] MEDS: GABAPENTIN 300 MG CAPSULE PO (08:53)
[2024-08-07 09:09] LABS: Gamma Glutamyl Transpeptidase* 35 U/L (8-55)
[2024-08-07 10:15] VITALS: RESP 18; O2SAT 94
--- NOTE | 2024-08-07 10:22 | RESP.RT ---
Patient lying in bed, resting easy, appears to be comfortable. On room air, SaO2 94%, breathing regular/easy. BBS with RUL and RML slightly diminished over other lung sifuentes. Fair/good air movement through out rest of lung sifuentes.
[2024-08-07 11:24] VITALS: BP 150/87; PULSE 85; RESP 18; TEMP 36.9; O2SAT 94
[2024-08-07] MEDS: CEFPODOXIME PROXETIL 200 MG TABLET PO (11:26)
[2024-08-07 11:53] LABS: Appearance Urine Clear (Clear); Bilirubin Urine Negative (Negative); Blood Urine Negative (Negative); Color Urine Light yellow (Yellow); Glucose Urine Negative (Negative); Ketones Urine Negative (Negative); Leukocyte Esterase Urine Trace (Negative); Nitrite Urine Negative (Negative); Protein Urine Negative (Negative); Specific Gravity Urine 1.015 (1.000-1.030); Urobilinogen Urine 0.2 (0.2-1.0)
[2024-08-07 12:02] LABS: RBC Urine 0-2 (0-2); WBC Urine 0-2 (0-5)
[2024-08-07 12:05] LABS: Bacteria Urine Few; Squamous Epithelial Cell Urine Few (None-Few)
[2024-08-07 12:12] LABS: Legionella pneumo Ag Urine L. pneumo Negative (Negative); S pneumo Ag Urine S. pneumo Negative (Negative)
--- NOTE | 2024-08-07 13:22 | P.DS_ITS ---
DS: Providers Provider Date Seen: 08/07/24 Date of admission: 08/05/24 17:44 Primary care physician: Alma Hale MD Admitting Clinician: Ghazal Perez MD Consults: 08/05/24 17:44 Consult to Occupational Therapy [CONS] Routine Comment: Reason(s) for OT Consult:: Evaluate and Treat Any Restrictions?:: No Restrictions Consult to Physical Therapy [CONS] Routine Comment: Reason(s) for PT Consult:: Evaluate and Treat Any Restrictions?:: No Restrictions Attending Physician on discharge: Peggy Martinez MD [facility] [facility] Date of Discharge: 08/07/24 DS: Diagnosis Discharge Diagnosis (1) Pneumonia: Status: Acute Problem details: - RUL, noted on 08/05/24 imaging - continue ceftriaxone and azithromycin - Mucinex, aerobika - transition to Vantin 200 mg p.o. b.i.d. for 7 days, finished azithromycin in house. (2) Hypoxia: Status: Acute Problem details: - 2/2 R sided pneumonia - resolved (3) Epigastric pain: Status: Acute Problem details: - ddx: gastritis/H pylori, gastroenteritis, referred pain from PNA - retest H Pylori - negative. Tolerating a regular diet at discharge. Labs and imaging have all been reassuring. - either acute muscle strain from coughing or referred pain from pneumonia (4) Non-insulin dependent diabetes mellitus: Status: Acute Problem details: - last A1C 6.4 05/2024 - accuchecks and SSI (5) Hyperlipidemia: Status: Acute (6) Essential hypertension: Status: Acute (7) Adenocarcinoma of lung: Status: Acute Problem details: - R, stage 1 - s/p limited R thoracotomy, wedge resection of R upper lobe lung nodule, mediastinal lymph node dissection 12/02/[address] Rico Ortega (8) H. pylori infection: Status: Acute Problem details: - has had in 2010 and 2014 per chart review - neg here DS: Summary Hospital Course Hospital Course: FINAL DIAGNOSIS/FOLLOW UP ISSUES: 1. Right middle lobe pneumonia - treated with Rocephin and azithromycin. Transition to oral Vantin. No prednisone. BRIEF HOSPITAL COURSE: Patient was admitted for 3 days. Synopsis of acute inpatient issues are outlined above. Chronic medical conditions with notable findings outlined above. Zahira was able to be weaned to room air secondary to her diagnosis of community-acquired pneumonia. She is being discharged on oral Vantin. No prednisone. Continue her home medications as prescribed. She had some moderate abdominal pain while here that had a negative workup. We presume this to be referred pain from her pneumonia or abdominal wall strain. DISCHARGE MEDICATIONS: See Reconciled list - SIGNIFICANT CHANGES: Vantin 200 mg p.o. b.i.d. times 14 doses, 7 day P.r.n. Prilosec over the next month Mucinex as needed No controlled substances sent Specific instructions to the patient and follow-up are outlined below. REVIEW OF SYSTEMS No new chest pain or dyspnea Pain controlled No voiding difficulties Tolerating diet challenge PHYSICAL EXAM: CONSTITUTIONAL: Alert, walking, tolerating a normal diet VITAL SIGNS: see record. HEENT: Normocephalic, atraumatic. PERRL, EOMI, conjunctivae pink, no scleral icterus. Ears and nose externally normal. Pharynx normal. NECK: No JVD. No carotid bruit, no thyromegaly, no adenopathy. CHEST: Clear to auscultation bilaterally. HEART: S1 and S2 normal. Edema ABDOMEN: Mildly tender across the mid epigastric and down to the umbilicus. No guarding. MUSCULOSKELETAL: No gross joint deformity or swelling. NEURO: Cranial nerves intact. Grossly intact. No asymmetric findings. SKIN: No rashes, petechiae, concerning changes PSYCHIATRIC: Mood euthymic. DISPOSITION: Home with friends and family Time spent on discharge 37 minutes. Time Spent with Patient Time attestation: Total time spent providing and/or coordinating discharge services: Exam Const: Vital Signs, click to edit/add: Vital Signs - 24 hr 08/06/24 15:00 08/06/24 15:00 08/06/24 15:00 Temperature 98.3 F Pulse Rate 80 Pulse Rate [Apical ] Pulse Rate [Pulse Oximeter] 75 75 Respiratory Rate 18 18 Blood Pressure [Le ft Arm] 95/62 Pulse Oximetry 96 Oxygen Delivery Me thod Room Air Oxygen Flow Rate 08/06/24 15:00 08/06/24 19:24 08/06/24 22:46 Temperature 98.5 F Pulse Rate Pulse Rate [Apical ] 62 Pulse Rate [Pulse Oximeter] Respiratory Rate 18 18 Blood Pressure [Le ft Arm] 109/69 Pulse Oximetry 96 96 Oxygen Delivery Me thod Room Air Room Air Oxygen Flow Rate 1 08/06/24 22:47 08/06/24 22:52 08/07/24 04:06 Temperature 98.1 F 98.5 F Pulse Rate 82 Pulse Rate [Apical ] 56 L Pulse Rate [Pulse Oximeter] 90 Respiratory Rate 18 16 Blood Pressure [Le ft Arm] 121/68 150/86 H Pulse Oximetry 94 [facility] Oxygen Flow Rate 08/07/24 07:00 08/07/24 07:00 08/07/24 07:00 Temperature 98.2 F Pulse Rate 75 Pulse Rate [Apical ] Pulse Rate [Pulse Oximeter] 87 Respiratory Rate 16 18 Blood Pressure [Le ft Arm] 128/92 H Pulse Oximetry 96 96 [facility] Air Oxygen Flow Rate 08/07/24 10:15 08/07/24 11:24 Temperature 98.5 F Pulse Rate Pulse Rate [Apical ] Pulse Rate [Pulse Oximeter] 85 Respiratory Rate 18 18 Blood Pressure [Le ft Arm] 150/87 H Pulse Oximetry 94 94 [facility] Room Air Oxygen Flow Rate DS: Data Data Completed and Pending Labs on day of discharge: Labs from last 24 hours 08/07/24 08/07/24 08/05/24 11:28 08:10 18:45 WBC 4.83 RBC 3.61 L Hgb 11.1 L Hct 35.2 MCV 98 MCH 31 MCHC 32 RDW Coeff of [place] 13.1 Plt Count 269 Neut % (Auto) 46.3 Lymph % (Auto) 39.3 [place] % (Auto) 10.1 Eos % (Auto) 3.9 Baso % (Auto) 0.4 Neut # (Auto) 2.23 Lymph # (Auto) 1.90 [place] # (Auto) 0.50 Eos # (Auto) 0.19 Baso # (Auto) 0.02 Abs Immat Gran (auto) 0.00 Imm/Tot Granulo (auto) 0.0 INR 0.98 VBG pH 7.348 VBG pCO2 46 VBG pO2 37.7 VBG HCO3 25 Sodium 139 Potassium 3.9 Chloride 109 Carbon Dioxide 25 Anion Gap 5 L BUN 9 Creatinine 0.6 Estimated Creat Clear 51.14 Estimated GFR 100 Glucose 92 Lactate 0.5 Calcium 8.0 L Phosphorus 2.9 Total Bilirubin < 0.1 L Direct Bilirubin 0.0 GGT 35 AST 29 ALT 25 Alkaline Phosphatase 57 C-Reactive Protein 0.5 Total Protein 5.5 L Albumin 3.2 L Lipase 68 Procalcitonin 0.10 Urine Color Light yellow Urine Appearance Clear Urine pH 5.0 Ur Specific [place] 1.015 Urine Protein Negative Urine Glucose (UA) Negative Urine Ketones Negative Urine Blood Negative Urine Nitrite Negative Urine Bilirubin Negative Urine Urobilinogen 0.2 Ur Leukocyte Esterase Trace A Urine RBC 0-2 Urine WBC 0-2 Ur Squamous Epith Cells Few Urine Bacteria Few A Urine L. pneumophilia Ag L. pneumo Negative Urine Strep pneumoniae Ag S. pneumo Negative Stool H. pylori Ag Negative Preliminary micro results at discharge 08/07/24 11:28 Urine Culture - Preliminary Urine,Clean Catch Culture in Progress 08/05/24 19:42 Blood Culture - Preliminary Blood NO GROWTH AFTER 24 HOURS Discharge Plan Discharge Disposition: Home, Self-Care Date of Admission: 08/05/24 17:44 Primary Care Provider: Alma Hale Condition: Improved Anticipated Discharge Date/Time: 08/07/24 13:13 Discharge Medications: New cefpodoxime 200 mg Tablet 200 mg PO BID Qty: 14 0RF omeprazole 20 mg Capsule,Delayed Release(Dr/Ec) 40 mg PO DAILY@0700 Qty: 30 0RF guaifenesin [Mucinex] 600 mg Tablet Extended Release 12hr 1,200 mg PO BID Qty: 60 0RF Continued budesonide-formoterol [Symbicort] 160-4.5 mcg/actuation HFA aerosol inhaler 1 inh inhalation BID lisinopril 20 mg tablet 20 mg PO DAILY gabapentin 300 mg capsule 300 mg PO TID amlodipine 10 mg tablet 10 mg PO DAILY atorvastatin 40 mg tablet 40 mg PO DAILY ipratropium-albuterol 0.5 mg-3 mg(2.5 mg base)/3 mL solution for nebulization 3 ml inhalation Q6H PRN (Reason: shortness of breath or wheezing) Qty: 180 6RF albuterol sulfate 90 mcg/actuation aerosol powdr breath activated 2 inh inhalation Q2H PRN (Reason: dyspnea) Qty: 2 8RF metformin 500 mg tablet extended release 24 hr 2,000 mg PO DAILY albuterol sulfate 2.5 mg /3 mL (0.083 %) solution for nebulization 2.5 mg inhalation Q6H PRN (Reason: wheezing) aspirin 81 mg tablet,delayed release (DR/EC) 81 mg PO DAILY sertraline 100 mg tablet 150 mg PO DAILY Discharge Orders: Discharge Order (Routine); Ordered 08/07/24 Ordered By: Peggy Martinez Patient Education: Guaifenesin (By mouth), Omeprazole (By mouth), Cefpodoxime Proxetil (By mouth), Pneumonia (DC) Additional Instructions: 1. You have pneumonia in your right lung. Take the flutter valve (aerobika) home and continue to use this several times a week; it loosens the mucus in your chest. I have sent 7 days of an antibiotic to [facility] (twice a day). [facility] also sent mucinex and an acid darius. Finish all your antibiotics. Take with food. 2. Your abdominal pain is likely from strained abdominal muscles from coughing. Your labs, CT and exam are all reassuring. No evidence of diverticulitis or peptic ulcer. You can continue the prilosec (acid darius) while on the antibiotic. Walk and stretch, use heat as you find it helpful. Tylenol and low dose ibuprofen (400mg 2-3x a day) is good for the pain. 3. If your abdominal pain worsens, please come back to the ED, urgent care or discuss with your primary care physician. Activity Level: No Restrictions Discharge Diet: Diabetic Follow Up Appointments: Alma Hale MD [Primary Care Provider] - 08/16/24 8:20 am ([facility] [place] [facility] [place], [address] for post hospital follow-up appointment. Please bring your current insurance information and Photo ID to the appointment. ) Forms: [employer] Info Instructions
[2024-08-07] MEDS: AZITHROMYCIN 250 MG TABLET 500 MG PO (13:32)
== END 2024-08-07 13:41 | disposition home or self-care (01) | DRG 193 ==
LOC: ED 15:14 → MEDSURG 15:33 → ED 17:10 → MEDSURG 17:10
PROVIDERS: Family Medicine; Admitting Provider Family Medicine; Emergency Provider Emergency Medicine; PCP Student in an Organized Health Care Education/Training Program; Visit Provider Family Medicine
DX: J18.9 Pneumonia, unspecified organism (principal); J96.01 Acute respiratory failure with hypoxia; C34.91 Malignant neoplasm of unspecified part of right bronchus or lung; E11.9 Type 2 diabetes mellitus without complications; R10.13 Epigastric pain; F41.9 Anxiety disorder, unspecified; F32.A Depression, unspecified; I10 Essential (primary) hypertension; Z87.891 Personal history of nicotine dependence
CPT/HCPCS: 36415; 71275; 74177; 80048; 80053; 80069; 80076; 81001; 81003; 82565; 82803; 82962; 82977; 83605; 83690; 83735; 84145; 84484; 85025; 85610; 86140; 87040; 87086; 87338; 87449; 87631; 87899; 93005; 97116; 97161; 97165; 97530; 99284; 99285; A9270; J0456; J0696; J1171; J1200; J1650; J2405; J2470; J2765; J7030; J7050; Q9967